=== PATIENT | male | born 1930 | race Caucasian/White ===

== ENCOUNTER 2016-10-07 14:26 | Inpatient (IN) | payer MEDICARE ==
[~2016-10-07] VITALS: Ht 182.9 cm; Wt 72.2 kg
[2016-10-07 17:13] VITALS: BP 179/93
[2016-10-07] MEDS ORDERED: METHYL SALICYLATE/MENTHOL TOPICAL OINTMENT 29GM TUBE. TP PRN (17:30)
[2016-10-07] MEDS ORDERED: MAG HYDROX/AL HYDROX/SIMETH 30 ML ORAL.SUSP PO PRN (17:30)
[2016-10-07] MEDS ORDERED: MAGNESIUM HYDROXIDE 2,400 MG/30 ML ORAL.SUSP. PO PRN (17:30)
[2016-10-07] MEDS ORDERED: LISI-334 PO (18:01)
[2016-10-07] MEDS ORDERED: AMLO10TA2 PO (18:01)
[2016-10-07] MEDS ORDERED: CLON0.1T12 PO (18:01)
[2016-10-07] MEDS ORDERED: cloNIDine HCL 0.1 MG TABLET PO PRN (18:15)
[2016-10-07] MEDS: LISINOPRIL 20 MG TABLET PO SCH (20:18)
[2016-10-08 05:19] LABS: HEMOGLOBIN A1C 5.6 % (4.8-5.6)
[2016-10-08 05:45] VITALS: BP 142/75
[2016-10-08 06:56] LABS: BASO # 0.1 x10^3/uL (0.0-0.2); BASO % 1 % (0-3); EOS # 1.2 x10^3/uL (0.0-0.7); EOS % 14 % (0-3); HEMATOCRIT 41.8 % (39.0-53.0); HEMOGLOBIN 14.2 g/dL (13.0-17.5); LYMPH # 1.2 x10^3/uL (1.0-4.8); LYMPH % 14 % (24-48); MEAN CORPUSCULAR HEMOGLOBIN 31 pg (25-35); MEAN CORPUSCULAR HGB CONC 34 g/dL (31-37); MEAN CORPUSCULAR VOLUME 90 fL (79-100); MONO # 0.9 x10^3/uL (0.0-1.1); MONO % 10 % (0-9); NEUT # 5.1 x10^3uL (1.8-7.7); NEUT % 60 % (31-73); PLATELET COUNT 204 x10^3/uL (140-400); RED BLOOD COUNT 4.63 x10^6/uL (4.30-5.70); RED CELL DISTRIBUTION WIDTH 14.2 % (11.5-14.5); WHITE BLOOD COUNT 8.5 x10^3/uL (4.0-11.0)
[2016-10-08 07:12] LABS: ALBUMIN 3.8 g/dL (3.4-5.0); ALBUMIN/GLOBULIN RATIO 1.2 (1.0-1.7); CALCIUM 8.9 mg/dL (8.5-10.1); CREATININE 1.3 mg/dL (0.7-1.3); GFR 52.6; POTASSIUM 3.3 mmol/L (3.5-5.1); TOTAL BILIRUBIN 2.5 mg/dL (0.2-1.0); TOTAL PROTEIN 6.9 g/dL (6.4-8.2)
[2016-10-08] MEDS: amLODIPine BESYLATE 10 MG TABLET PO SCH (08:10)
[2016-10-08] MEDS: POTASSIUM CHLORIDE 20 MEQ TABLET.ER. PO SCH (08:10)
[2016-10-08] MEDS: LISINOPRIL 20 MG TABLET PO SCH ×2 (08:11→20:00)
[2016-10-08] MEDS: CHOLECALCIFEROL (VITAMIN D3) 1,000 UNIT TABLET PO SCH (08:11)
[2016-10-08] MEDS ORDERED: PNEUMOC CONJ VACC 23-VALENT 0.5 ML VIAL. VAX IM ONE (09:00)
[2016-10-08 09:11] LABS: BACTERIA,URINE 0 /HPF (0-FEW); BILIRUBIN,URINE NEG (NEG); CLARITY,URINE CLEAR; COLOR,URINE YELLOW; GLUCOSE,URINE NEG (NEG); NITRITE,URINE NEG (NEG); RBC,URINE RARE /HPF (0-2); SQUAMOUS EPITHELIAL CELL,UR OCC /LPF; UROBILINOGEN,URINE 0.2 mg/dL (0.2 mg/dL); WBC,URINE RARE /HPF (0-4)
[2016-10-08 15:42] VITALS: BP 129/93
[2016-10-08] MEDS: DIVALPROEX 125 MG CAP.SPRINK PO SCH (20:00)
[2016-10-09 06:11] VITALS: BP 122/72
[2016-10-09] MEDS: LISINOPRIL 20 MG TABLET PO SCH ×2 (08:04→19:11)
[2016-10-09] MEDS: amLODIPine BESYLATE 10 MG TABLET PO SCH (08:04)
[2016-10-09] MEDS: CHOLECALCIFEROL (VITAMIN D3) 1,000 UNIT TABLET PO SCH (08:04)
[2016-10-09] MEDS: POTASSIUM CHLORIDE 20 MEQ TABLET.ER. PO SCH (08:05)
[2016-10-09] MEDS: DIVALPROEX 125 MG CAP.SPRINK PO SCH ×2 (08:06→19:10)
[2016-10-09 15:18] VITALS: BP 144/80
[2016-10-10 05:35] VITALS: BP 144/84
[2016-10-10 06:18] LABS: ALBUMIN 3.3 g/dL (3.4-5.0); ALBUMIN/GLOBULIN RATIO 1.2 (1.0-1.7); CALCIUM 8.3 mg/dL (8.5-10.1); CREATININE 1.2 mg/dL (0.7-1.3); GFR 57.7; POTASSIUM 3.5 mmol/L (3.5-5.1); TOTAL BILIRUBIN 1.9 mg/dL (0.2-1.0); TOTAL PROTEIN 6.1 g/dL (6.4-8.2)
[2016-10-10] MEDS: POTASSIUM CHLORIDE 20 MEQ TABLET.ER. PO SCH (08:03)
[2016-10-10] MEDS: CHOLECALCIFEROL (VITAMIN D3) 1,000 UNIT TABLET PO SCH (08:03)
[2016-10-10] MEDS: DIVALPROEX 125 MG CAP.SPRINK PO SCH ×2 (08:03→19:28)
[2016-10-10] MEDS: LISINOPRIL 20 MG TABLET PO SCH ×2 (08:03→19:29)
[2016-10-10] MEDS: amLODIPine BESYLATE 10 MG TABLET PO SCH (08:04)
[2016-10-10 15:57] VITALS: BP 135/82
[2016-10-11 05:54] VITALS: BP 154/93
[2016-10-11] MEDS: LISINOPRIL 20 MG TABLET PO SCH ×2 (08:04→19:40)
[2016-10-11] MEDS: POTASSIUM CHLORIDE 20 MEQ TABLET.ER. PO SCH (08:05)
[2016-10-11] MEDS: DIVALPROEX 125 MG CAP.SPRINK PO SCH ×2 (08:05→19:40)
[2016-10-11] MEDS: CHOLECALCIFEROL (VITAMIN D3) 1,000 UNIT TABLET PO SCH (08:05)
[2016-10-11] MEDS: amLODIPine BESYLATE 10 MG TABLET PO SCH (08:05)
--- NOTE | 2016-10-11 12:59 | PDOC ---
Exam Isaiah Demential Exam: Isaiah Note: Please also refer to the separate dictated note~for this date of service dictated separately.~Patient seen individually. Discussed the patient with Nursing staff reviewed the chart.~Reviewed interim history and current functioning. Reviewed vital signs,~Labs/ Radiology~and current medications noted below. Continue current treatment with the changes noted in the dictated addendum note Assessment: Vital Signs: Vital Signs Date Time Temp Pulse Resp B/P (MAP) Pulse Ox O2 Delivery O2 Flow Rate FiO2 10/11/16 08:05 59 154/93 10/11/16 05:54 98.1 20 98 10/10/16 05:35 Room Air I&O Intake and Output 10/11/16 07:00 Intake Total 1320 ml Balance 1320 ml Intake Oral 1320 ml Current Medications: Meds: Current Medications Acetaminophen (Tylenol) 650 mg PRN Q6HRS PRN PO PAIN / TEMP; Start 10/07/16 at 17:30 Multi-Ingredient Ointment (Analgesic [place]) 1 kika PRN QID PRN TP MUSCLE PAIN; Start 10/07/16 at 17:30 Al Hydroxide/Mg Hydroxide (Mylanta Plus Xs) 15 ml PRN AFTMEALHC PRN PO DYSPEPSIA; Start 10/07/16 at 17:30 Magnesium Hydroxide (Milk Of Magnesia) 2,400 mg PRN QHS PRN PO CONSTIPATION; Start 10/07/16 at 17:30 Amlodipine Besylate (Norvasc) 10 mg DAILY PO Last administered on 10/11/16 08: 05; Start 10/08/16 at 09:00 Clonidine HCl (Catapres) 0.1 mg PRN Q6HRS PRN PO HYPERTENSION, SEE COMMENTS; Start 10/07/16 at 18:15 Lisinopril (Prinivil) 20 mg BID PO Last administered on 10/11/16 08:04; Start 10/07/16 at 21:00 Pneumococcal Polyvalent Vaccine (Pneumovax 23) 0.5 ml ONCE ONCE VAX IM ; Start 10/08/16 at 09:00; Stop 10/08/16 at 09:01; Status DC Olanzapine (ZyPREXA ZYDIS) 2.5 mg PRN Q4HRS PRN PO ANXIETY / AGITATION Last administered on 10/07/16 23:09; Start 10/07/16 at 23:15 Vitamin D (Vitamin D3) 2,000 unit DAILY PO Last administered on 10/11/16 08:05 ; Start 10/08/16 at 09:00 Potassium Chloride (Klor-Con) 20 meq DAILYWBKFT PO Last administered on 08:05; Start 10/08/16 at 08:00 Divalproex Sodium (Depakote Sprinkles) 125 mg DAILY PO Last administered on 10/11 08:05; Start 10/09/16 at 09:00 Divalproex Sodium (Depakote Sprinkles) 250 mg HS PO Last administered on 19:28; Start 10/08/16 at 21:00 Sertraline HCl (Zoloft) 25 mg DAILY PO ; Start 10/12/16 at 09:00 Trazodone HCl (Desyrel) 50 mg PRN QHS PRN PO INSOMNIA, MAY REPEAT X1; Start 10/11/16 at 10:30 Active Scripts Active Reported Catapres (Clonidine Hcl) 0.1 Mg Tablet 1 Tab PO PRN Q6HRS PRN Amlodipine Besylate 10 Mg Tablet 10 Mg PO DAILY Lisinopril 20 Mg Tablet 1 Tab PO BID Diagnosis: Problems: (1) Impulse control disorder (2) Dementia, vascular, with depression (3) Dementia, vascular, with delusions (4) Major depressive disorder, recurrent episode (5) Anxiety disorder KOTA MUNOZ MD Oct 11, 2016 12:59
[2016-10-11 16:19] VITALS: BP 146/80
[2016-10-11] MEDS: traZODone 50 MG TABLET. PO PRN (19:43)
[2016-10-12 06:16] VITALS: BP 141/74
[2016-10-12] MEDS: amLODIPine BESYLATE 10 MG TABLET PO SCH (07:13)
[2016-10-12] MEDS: POTASSIUM CHLORIDE 20 MEQ TABLET.ER. PO SCH (07:14)
[2016-10-12] MEDS: DIVALPROEX 125 MG CAP.SPRINK PO SCH ×2 (07:14→19:43)
[2016-10-12] MEDS: LISINOPRIL 20 MG TABLET PO SCH ×2 (07:17→19:43)
[2016-10-12] MEDS: CHOLECALCIFEROL (VITAMIN D3) 1,000 UNIT TABLET PO SCH (07:18)
[2016-10-12] MEDS: SERTRALINE 25 MG TABLET. PO SCH (07:43)
[2016-10-12 07:57] LABS: VAL ACID 47 mcg/mL (50-100)
[2016-10-12 15:54] VITALS: BP 117/76
[2016-10-12] MEDS: traZODone 50 MG TABLET. PO PRN (19:44)
--- NOTE | 2016-10-12 21:02 | PDOC ---
Exam Isaiah Demential Exam: Isaiah Note: Please also refer to the separate dictated note~for this date of service dictated separately.~Patient seen individually. Discussed the patient with Nursing staff reviewed the chart.~Reviewed interim history and current functioning. Reviewed vital signs,~Labs/ Radiology~and current medications noted below. Continue current treatment with the changes noted in the dictated addendum note Assessment: Vital Signs: Vital Signs Date Time Temp Pulse Resp B/P (MAP) Pulse Ox O2 Delivery O2 Flow Rate FiO2 10/12/16 19:43 64 117/76 10/12/16 15:54 98.4 16 98 10/10/16 05:35 Room Air I&O Intake and Output 10/12/16 07:00 Intake Total 960 ml Balance 960 ml Intake Oral 960 ml Labs: Laboratory Tests Test 10/12/16 07:19 Valproic Acid Level 47 mcg/mL (50-100) L Valproic Acid Last Dose Date 10/11/16 Valproic Acid Last Dose Time 2100 Current Medications: Meds: Current Medications Acetaminophen (Tylenol) 650 mg PRN Q6HRS PRN PO PAIN / TEMP; Start 10/07/16 at 17:30 Multi-Ingredient Ointment (Analgesic [place]) 1 kika PRN QID PRN TP MUSCLE PAIN; Start 10/07/16 at 17:30 Al Hydroxide/Mg Hydroxide (Mylanta Plus Xs) 15 ml PRN AFTMEALHC PRN PO DYSPEPSIA; Start 10/07/16 at 17:30 Magnesium Hydroxide (Milk Of Magnesia) 2,400 mg PRN QHS PRN PO CONSTIPATION; Start 10/07/16 at 17:30 Amlodipine Besylate (Norvasc) 10 mg DAILY PO Last administered on 10/12/16 07: 13; Start 10/08/16 at 09:00 Clonidine HCl (Catapres) 0.1 mg PRN Q6HRS PRN PO HYPERTENSION, SEE COMMENTS; Start 10/07/16 at 18:15 Lisinopril (Prinivil) 20 mg BID PO Last administered on 10/12/16 19:43; Start 10/07/16 at 21:00 Pneumococcal Polyvalent Vaccine (Pneumovax 23) 0.5 ml ONCE ONCE VAX IM ; Start 10/08/16 at 09:00; Stop 10/08/16 at 09:01; Status DC Olanzapine (ZyPREXA ZYDIS) 2.5 mg PRN Q4HRS PRN PO ANXIETY / AGITATION Last administered on 10/12/16 12:17; Start 10/07/16 at 23:15 Vitamin D (Vitamin D3) 2,000 unit DAILY PO Last administered on 10/12/16 07:18 ; Start 10/08/16 at 09:00 Potassium Chloride (Klor-Con) 20 meq DAILYWBKFT PO Last administered on 07:14; Start 10/08/16 at 08:00 Divalproex Sodium (Depakote Sprinkles) 125 mg DAILY PO Last administered on 10/12 07:14; Start 10/09/16 at 09:00 Divalproex Sodium (Depakote Sprinkles) 250 mg HS PO Last administered on 19:43; Start 10/08/16 at 21:00 Sertraline HCl (Zoloft) 25 mg DAILY PO Last administered on 10/12/16 07:43; Start 10/12/16 at 09:00 Trazodone HCl (Desyrel) 50 mg PRN QHS PRN PO INSOMNIA, MAY REPEAT X1 Last administered on 10/12/16 19:44; Start 10/11/16 at 10:30 Active Scripts Active Reported Catapres (Clonidine Hcl) 0.1 Mg Tablet 1 Tab PO PRN Q6HRS PRN Amlodipine Besylate 10 Mg Tablet 10 Mg PO DAILY Lisinopril 20 Mg Tablet 1 Tab PO BID Diagnosis: Problems: (1) Anxiety disorder (2) Impulse control disorder (3) Major depressive disorder, recurrent episode (4) Dementia, vascular, with depression (5) Dementia, vascular, with delusions KOTA MUNOZ MD Oct 12, 2016 21:02
[2016-10-13 06:40] VITALS: BP 129/74
[2016-10-13] MEDS: CHOLECALCIFEROL (VITAMIN D3) 1,000 UNIT TABLET PO SCH (09:29)
[2016-10-13] MEDS: SERTRALINE 25 MG TABLET. PO SCH (09:29)
[2016-10-13] MEDS: DIVALPROEX 125 MG CAP.SPRINK PO SCH ×2 (09:29→19:12)
[2016-10-13] MEDS: amLODIPine BESYLATE 10 MG TABLET PO SCH (09:30)
[2016-10-13] MEDS: POTASSIUM CHLORIDE 20 MEQ TABLET.ER. PO SCH (09:30)
[2016-10-13] MEDS: LISINOPRIL 20 MG TABLET PO SCH ×2 (09:30→19:12)
[2016-10-13 15:48] VITALS: BP 117/69
--- NOTE | 2016-10-13 20:11 | PDOC ---
Exam Isaiah Demential Exam: Isaiah Note: Please also refer to the separate dictated note~for this date of service dictated separately.~Patient seen individually. Discussed the patient with Nursing staff reviewed the chart.~Reviewed interim history and current functioning. Reviewed vital signs,~Labs/ Radiology~and current medications noted below. Continue current treatment with the changes noted in the dictated addendum note Assessment: Vital Signs: Vital Signs Date Time Temp Pulse Resp B/P (MAP) Pulse Ox O2 Delivery O2 Flow Rate FiO2 10/13/16 19:12 55 117/69 10/13/16 15:48 98.0 16 97 Room Air I&O Intake and Output 10/13/16 07:00 Intake Total 1085 ml Balance 1085 ml Intake Oral 1085 ml Current Medications: Meds: Current Medications Acetaminophen (Tylenol) 650 mg PRN Q6HRS PRN PO PAIN / TEMP; Start 10/07/16 at 17:30 Multi-Ingredient Ointment (Analgesic [place]) 1 kika PRN QID PRN TP MUSCLE PAIN; Start 10/07/16 at 17:30 Al Hydroxide/Mg Hydroxide (Mylanta Plus Xs) 15 ml PRN AFTMEALHC PRN PO DYSPEPSIA; Start 10/07/16 at 17:30 Magnesium Hydroxide (Milk Of Magnesia) 2,400 mg PRN QHS PRN PO CONSTIPATION; Start 10/07/16 at 17:30 Amlodipine Besylate (Norvasc) 10 mg DAILY PO Last administered on 10/13/16 09: 30; Start 10/08/16 at 09:00 Clonidine HCl (Catapres) 0.1 mg PRN Q6HRS PRN PO HYPERTENSION, SEE COMMENTS; Start 10/07/16 at 18:15 Lisinopril (Prinivil) 20 mg BID PO Last administered on 10/13/16 19:12; Start 10/07/16 at 21:00 Pneumococcal Polyvalent Vaccine (Pneumovax 23) 0.5 ml ONCE ONCE VAX IM ; Start 10/08/16 at 09:00; Stop 10/08/16 at 09:01; Status DC Olanzapine (ZyPREXA ZYDIS) 2.5 mg PRN Q4HRS PRN PO ANXIETY / AGITATION Last administered on 10/12/16 12:17; Start 10/07/16 at 23:15 Vitamin D (Vitamin D3) 2,000 unit DAILY PO Last administered on 10/13/16 09:29 ; Start 10/08/16 at 09:00 Potassium Chloride (Klor-Con) 20 meq DAILYWBKFT PO Last administered on 09:30; Start 10/08/16 at 08:00 Divalproex Sodium (Depakote Sprinkles) 125 mg DAILY PO Last administered on 10/13 09:29; Start 10/09/16 at 09:00 Divalproex Sodium (Depakote Sprinkles) 250 mg HS PO Last administered on 19:12; Start 10/08/16 at 21:00 Sertraline HCl (Zoloft) 25 mg DAILY PO Last administered on 10/13/16 09:29; Start 10/12/16 at 09:00 Trazodone HCl (Desyrel) 50 mg PRN QHS PRN PO INSOMNIA, MAY REPEAT X1 Last administered on 10/12/16 19:44; Start 10/11/16 at 10:30 Active Scripts Active Reported Catapres (Clonidine Hcl) 0.1 Mg Tablet 1 Tab PO PRN Q6HRS PRN Amlodipine Besylate 10 Mg Tablet 10 Mg PO DAILY Lisinopril 20 Mg Tablet 1 Tab PO BID Diagnosis: Problems: (1) Anxiety disorder (2) Impulse control disorder (3) Major depressive disorder, recurrent episode (4) Dementia, vascular, with depression (5) Dementia, vascular, with delusions KOTA MUNOZ MD Oct 13, 2016 20:11
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
[2016-10-14] MEDS: ACETAMINOPHEN 325 MG TABLET PO PRN ×2 (01:39→08:39)
[2016-10-14 05:59] VITALS: BP 155/83
[2016-10-14] MEDS: DIVALPROEX 125 MG CAP.SPRINK PO SCH ×2 (08:38→19:48)
[2016-10-14] MEDS: LISINOPRIL 20 MG TABLET PO SCH ×2 (08:38→19:48)
[2016-10-14] MEDS: CHOLECALCIFEROL (VITAMIN D3) 1,000 UNIT TABLET PO SCH (08:38)
[2016-10-14] MEDS: amLODIPine BESYLATE 10 MG TABLET PO SCH (08:38)
[2016-10-14] MEDS: POTASSIUM CHLORIDE 20 MEQ TABLET.ER. PO SCH (08:38)
[2016-10-14] MEDS: SERTRALINE 25 MG TABLET. PO SCH (08:38)
[2016-10-14] MEDS ORDERED: KETOROLAC 30 MG/ML VIAL. IM ONE (11:40)
[2016-10-14 11:54] LABS: BASO # 0.1 x10^3/uL (0.0-0.2); BASO % 1 % (0-3); EOS # 0.9 x10^3/uL (0.0-0.7); EOS % 7 % (0-3); HEMOGLOBIN 13.2 g/dL (13.0-17.5); LYMPH # 0.4 x10^3/uL (1.0-4.8); LYMPH % 3 % (24-48); MEAN CORPUSCULAR HEMOGLOBIN 30 pg (25-35); MEAN CORPUSCULAR HGB CONC 33 g/dL (31-37); MEAN CORPUSCULAR VOLUME 92 fL (79-100); MONO # 1.1 x10^3/uL (0.0-1.1); MONO % 8 % (0-9); NEUT # 11.1 x10^3uL (1.8-7.7); NEUT % 81 % (31-73); PLATELET COUNT 190 x10^3/uL (140-400); RED BLOOD COUNT 4.37 x10^6/uL (4.30-5.70); RED CELL DISTRIBUTION WIDTH 14.1 % (11.5-14.5); WHITE BLOOD COUNT 13.6 x10^3/uL (4.0-11.0)
[2016-10-14 12:00] LABS: ALBUMIN 3.4 g/dL (3.4-5.0); ALBUMIN/GLOBULIN RATIO 1.1 (1.0-1.7); C REACTIVE PROTEIN 20.7 mg/L (0-3.3); CALCIUM 8.5 mg/dL (8.5-10.1); CREATININE 1.2 mg/dL (0.7-1.3); GFR 57.7; POTASSIUM 3.9 mmol/L (3.5-5.1); TOTAL BILIRUBIN 1.2 mg/dL (0.2-1.0); TOTAL PROTEIN 6.6 g/dL (6.4-8.2); URIC ACID 4.7 mg/dL (3.5-7.2)
--- NOTE | 2016-10-14 12:42 | RAD ---
Indication pain with swelling. AP oblique and lateral views of the right knee were obtained. No acute bony finding is seen. Significant degenerative changes are not apparent particularly given the patient's age. Vascular calcification is noted as well as a small joint effusion.
[2016-10-14 13:26] LABS: SEDIMENTATION RATE 10 (0-15)
[2016-10-14 16:20] VITALS: BP 146/74
--- NOTE | 2016-10-14 16:50 | PDOC ---
PROGRESS NOTES Diagnosis DIAGNOSIS pain and swelling in his right knee joint He apparently fell in the ER at [facility] he sustained laceration on his right brow and superficial bruises on his right knee Problem Acute right knee monoarthritis Possible right knee hemarthrosis Assessment Right knee pain with marked effusion Mild leukocytosis ESR is normal Elevated CRP X ray of the right knee showed preserved joint space and no chondrocalcinosis uric acid was normal PLAN Arrange for CT Scan of the right knee Subjective Vital signs stable Right knee swollen painful with prominent effusion likely hemarthosis Objective Vital Signs Date Time Temp Pulse Resp B/P (MAP) Pulse Ox O2 Delivery O2 Flow Rate FiO2 10/14/16 16:20 98.4 61 18 146/74 (98) 99 10/13/16 15:48 Room Air Intake and Output 10/14/16 07:00 Intake Total 480 ml Balance 480 ml Intake Oral 480 ml # Bowel Movements 1 Review of Relevant I have reviewed the following items jacki (where applicable) has been applied. Labs Laboratory Tests Test 10/14/16 11:40 White Blood Count 13.6 x10^3/uL (4.0-11.0) Red Blood Count 4.37 x10^6/uL (4.30-5.70) Hemoglobin 13.2 g/dL (13.0-17.5) Hematocrit 40.0 % (39.0-53.0) Mean Corpuscular Volume 92 fL (79-100) Mean Corpuscular Hemoglobin 30 pg (25-35) Mean Corpuscular Hemoglobin Concent 33 g/dL (31-37) Red Cell Distribution Width 14.1 % (11.5-14.5) Platelet Count 190 x10^3/uL (140-400) Neutrophils (%) (Auto) 81 % (31-73) Lymphocytes (%) (Auto) 3 % (24-48) Monocytes (%) (Auto) 8 % (0-9) Eosinophils (%) (Auto) 7 % (0-3) Basophils (%) (Auto) 1 % (0-3) Neutrophils # (Auto) 11.1 x10^3uL (1.8-7.7) Lymphocytes # (Auto) 0.4 x10^3/uL (1.0-4.8) Monocytes # (Auto) 1.1 x10^3/uL (0.0-1.1) Eosinophils # (Auto) 0.9 x10^3/uL (0.0-0.7) Basophils # (Auto) 0.1 x10^3/uL (0.0-0.2) Erythrocyte Sedimentation Rate 10 (0-15) Sodium Level 141 mmol/L (136-145) Potassium Level 3.9 mmol/L (3.5-5.1) Chloride Level 104 mmol/L (98-107) Carbon Dioxide Level 32 mmol/L (21-32) Anion Gap 5 (6-14) Blood Urea Nitrogen 19 mg/dL (8-26) Creatinine 1.2 mg/dL (0.7-1.3) Estimated GFR (Cockcroft-Gault) 57.7 BUN/Creatinine Ratio 16 (6-20) Glucose Level 114 mg/dL (70-99) Uric Acid 4.7 mg/dL (3.5-7.2) Calcium Level 8.5 mg/dL (8.5-10.1) Total Bilirubin 1.2 mg/dL (0.2-1.0) Aspartate Amino Transf (AST/SGOT) 20 U/L (15-37) Alanine Aminotransferase (ALT/SGPT) 28 U/L (16-63) Alkaline Phosphatase 158 U/L (46-116) C-Reactive Protein 20.7 mg/L (0-3.3) Total Protein 6.6 g/dL (6.4-8.2) Albumin 3.4 g/dL (3.4-5.0) Albumin/Globulin Ratio 1.1 (1.0-1.7) Medications Current Medications Acetaminophen (Tylenol) 650 mg PRN Q6HRS PRN PO PAIN / TEMP Last administered on 10/14/16t 08:39; Start 10/07/16 at 17:30 Multi-Ingredient Ointment (Analgesic [place]) 1 kika PRN QID PRN TP MUSCLE PAIN; Start 10/07/16 at 17:30 Al Hydroxide/Mg Hydroxide (Mylanta Plus Xs) 15 ml PRN AFTMEALHC PRN PO DYSPEPSIA; Start 10/07/16 at 17:30 Magnesium Hydroxide (Milk Of Magnesia) 2,400 mg PRN QHS PRN PO CONSTIPATION; Start 10/07/16 at 17:30 Amlodipine Besylate (Norvasc) 10 mg DAILY PO Last administered on 10/14/16 08: 38; Start 10/08/16 at 09:00 Clonidine HCl (Catapres) 0.1 mg PRN Q6HRS PRN PO HYPERTENSION, SEE COMMENTS; Start 10/07/16 at 18:15 Lisinopril (Prinivil) 20 mg BID PO Last administered on 10/14/16 08:38; Start 10/07/16 at 21:00 Pneumococcal Polyvalent Vaccine (Pneumovax 23) 0.5 ml ONCE ONCE VAX IM ; Start 10/08/16 at 09:00; Stop 10/08/16 at 09:01; Status DC Olanzapine (ZyPREXA ZYDIS) 2.5 mg PRN Q4HRS PRN PO ANXIETY / AGITATION Last administered on 10/12/16 12:17; Start 10/07/16 at 23:15 Vitamin D (Vitamin D3) 2,000 unit DAILY PO Last administered on 10/14/16 08:38 ; Start 10/08/16 at 09:00 Potassium Chloride (Klor-Con) 20 meq DAILYWBKFT PO Last administered on 08:38; Start 10/08/16 at 08:00 Divalproex Sodium (Depakote Sprinkles) 125 mg DAILY PO Last administered on 10/14 08:38; Start 10/09/16 at 09:00 Divalproex Sodium (Depakote Sprinkles) 250 mg HS PO Last administered on 19:12; Start 10/08/16 at 21:00 Sertraline HCl (Zoloft) 25 mg DAILY PO Last administered on 10/14/16 08:38; Start 10/12/16 at 09:00 Trazodone HCl (Desyrel) 50 mg PRN QHS PRN PO INSOMNIA, MAY REPEAT X1 Last administered on 10/12/16 19:44; Start 10/11/16 at 10:30 Ketorolac Tromethamine (Toradol) 30 mg 1X ONCE IM Last administered on 11:37; Start 10/14/16 at 11:40; Stop 10/14/16 at 11:41; Status DC Active Scripts Active Reported Catapres (Clonidine Hcl) 0.1 Mg Tablet 1 Tab PO PRN Q6HRS PRN Amlodipine Besylate 10 Mg Tablet 10 Mg PO DAILY Lisinopril 20 Mg Tablet 1 Tab PO BID Vitals/I & O Vital Sign - Last 24 Hours 10/13/16 10/14/16 10/14/16 10/14/16 19:12 05:59 08:38 08:38 Temp 97.9 Pulse 55 60 60 60 Resp 18 B/P (MAP) 117/69 155/83 (107) 155/83 155/83 Pulse Ox 98 10/14/16 16:20 Temp 98.4 Pulse 61 Resp 18 B/P (MAP) 146/74 (98) Pulse Ox 99 Intake and Output 10/13/16 10/13/16 10/14/16 15:00 23:00 07:00 Intake Total 240 ml 240 ml Balance 240 ml 240 ml TAMI SALMERON MD Oct 14, 2016 16:50
[2016-10-14] MEDS: NAPROXEN 250 MG TABLET PO PRN (18:05)
[2016-10-14] MEDS: traZODone 50 MG TABLET. PO PRN (19:47)
--- NOTE | 2016-10-14 19:54 | PDOC ---
Exam Isaiah Demential Exam: Isaiah Note: Please also refer to the separate dictated note~for this date of service dictated separately.~Patient seen individually. Discussed the patient with Nursing staff reviewed the chart.~Reviewed interim history and current functioning. Reviewed vital signs,~Labs/ Radiology~and current medications noted below. Continue current treatment with the changes noted in the dictated addendum note DATE OF SERVICE: 10/12/2016. PSYCHIATRIC PROGRESS NOTE This note is a late entry for Date of Service 10/12/2016 and covers elements not covered in my initial note of 10/12/2016. The patient remains confused, forgetful, irritable, at lunchtime received Zyprexa, does redirect. No CV, , pulmonary, eye, ENT systems symptoms, on review. Reliability poor. MENTAL STATUS EXAM: Oriented to himself. Insight and judgment, recent and remote memory, attention and concentration, fund of knowledge poor consistent with his diagnoses mentioned in my initial note. LABS: Reviewed. PLAN: Continue current psychotropics including Depakote along with Zyprexa p.r.n., Zoloft, and trazodone. Adjust further as clinically indicated. Assessment: Vital Signs: Vital Signs Date Time Temp Pulse Resp B/P (MAP) Pulse Ox O2 Delivery O2 Flow Rate FiO2 10/14/16 19:48 61 146/74 10/14/16 16:20 98.4 18 99 10/13/16 15:48 Room Air I&O Intake and Output 10/14/16 07:00 Intake Total 480 ml Balance 480 ml Intake Oral 480 ml # Bowel Movements 1 Labs: Laboratory Tests Test 10/14/16 11:40 White Blood Count 13.6 x10^3/uL (4.0-11.0) #H Red Blood Count 4.37 x10^6/uL (4.30-5.70) Hemoglobin 13.2 g/dL (13.0-17.5) Hematocrit 40.0 % (39.0-53.0) Mean Corpuscular Volume 92 fL (79-100) Mean Corpuscular Hemoglobin 30 pg (25-35) Mean Corpuscular Hemoglobin Concent 33 g/dL (31-37) Red Cell Distribution Width 14.1 % (11.5-14.5) Platelet Count 190 x10^3/uL (140-400) Neutrophils (%) (Auto) 81 % (31-73) H Lymphocytes (%) (Auto) 3 % (24-48) L Monocytes (%) (Auto) 8 % (0-9) Eosinophils (%) (Auto) 7 % (0-3) H Basophils (%) (Auto) 1 % (0-3) Neutrophils # (Auto) 11.1 x10^3uL (1.8-7.7) H Lymphocytes # (Auto) 0.4 x10^3/uL (1.0-4.8) L Monocytes # (Auto) 1.1 x10^3/uL (0.0-1.1) Eosinophils # (Auto) 0.9 x10^3/uL (0.0-0.7) H Basophils # (Auto) 0.1 x10^3/uL (0.0-0.2) Erythrocyte Sedimentation Rate 10 (0-15) Sodium Level 141 mmol/L (136-145) Potassium Level 3.9 mmol/L (3.5-5.1) Chloride Level 104 mmol/L (98-107) Carbon Dioxide Level 32 mmol/L (21-32) Anion Gap 5 (6-14) L Blood Urea Nitrogen 19 mg/dL (8-26) Creatinine 1.2 mg/dL (0.7-1.3) Estimated GFR (Cockcroft-Gault) 57.7 BUN/Creatinine Ratio 16 (6-20) Glucose Level 114 mg/dL (70-99) H Uric Acid 4.7 mg/dL (3.5-7.2) Calcium Level 8.5 mg/dL (8.5-10.1) Total Bilirubin 1.2 mg/dL (0.2-1.0) H Aspartate Amino Transferase (AST) 20 U/L (15-37) Alanine Aminotransferase (ALT) 28 U/L (16-63) Alkaline Phosphatase 158 U/L (46-116) H C-Reactive Protein 20.7 mg/L (0-3.3) H Total Protein 6.6 g/dL (6.4-8.2) Albumin 3.4 g/dL (3.4-5.0) Albumin/Globulin Ratio 1.1 (1.0-1.7) Current Medications: Meds: Current Medications Acetaminophen (Tylenol) 650 mg PRN Q6HRS PRN PO PAIN / TEMP Last administered on 10/14/16 08:39; Start 10/07/16 at 17:30 Multi-Ingredient Ointment (Analgesic [place]) 1 kika PRN QID PRN TP MUSCLE PAIN; Start 10/07/16 at 17:30 Al Hydroxide/Mg Hydroxide (Mylanta Plus Xs) 15 ml PRN AFTMEALHC PRN PO DYSPEPSIA; Start 10/07/16 at 17:30 Magnesium Hydroxide (Milk Of Magnesia) 2,400 mg PRN QHS PRN PO CONSTIPATION; Start 10/07/16 at 17:30 Amlodipine Besylate (Norvasc) 10 mg DAILY PO Last administered on 10/14/16 08: 38; Start 10/08/16 at 09:00 Clonidine HCl (Catapres) 0.1 mg PRN Q6HRS PRN PO HYPERTENSION, SEE COMMENTS; Start 10/07/16 at 18:15 Lisinopril (Prinivil) 20 mg BID PO Last administered on 10/14/16 19:48; Start 10/07/16 at 21:00 Pneumococcal Polyvalent Vaccine (Pneumovax 23) 0.5 ml ONCE ONCE VAX IM ; Start 10/08/16 at 09:00; Stop 10/08/16 at 09:01; Status DC Olanzapine (ZyPREXA ZYDIS) 2.5 mg PRN Q4HRS PRN PO ANXIETY / AGITATION Last administered on 10/12/16 12:17; Start 10/07/16 at 23:15 Vitamin D (Vitamin D3) 2,000 unit DAILY PO Last administered on 10/14/16 08:38 ; Start 10/08/16 at 09:00 Potassium Chloride (Klor-Con) 20 meq DAILYWBKFT PO Last administered on 08:38; Start 10/08/16 at 08:00 Divalproex Sodium (Depakote Sprinkles) 125 mg DAILY PO Last administered on 10/14 08:38; Start 10/09/16 at 09:00 Divalproex Sodium (Depakote Sprinkles) 250 mg HS PO Last administered on 19:48; Start 10/08/16 at 21:00 Sertraline HCl (Zoloft) 25 mg DAILY PO Last administered on 10/14/16 08:38; Start 10/12/16 at 09:00; Stop 10/14/16 at 18:17; Status DC Trazodone HCl (Desyrel) 50 mg PRN QHS PRN PO INSOMNIA, MAY REPEAT X1 Last administered on 10/14/16 19:47; Start 10/11/16 at 10:30 Ketorolac Tromethamine (Toradol) 30 mg 1X ONCE IM Last administered on 11:37; Start 10/14/16 at 11:40; Stop 10/14/16 at 11:41; Status DC Naproxen (Naprosyn) 250 mg TIDAFTMEAL PRN PO PAIN Last administered on 18:05; Start 10/14/16 at 16:45 Sertraline HCl (Zoloft) 50 mg DAILY PO ; Start 10/15/16 at 09:00 Active Scripts Active Reported Catapres (Clonidine Hcl) 0.1 Mg Tablet 1 Tab PO PRN Q6HRS PRN Amlodipine Besylate 10 Mg Tablet 10 Mg PO DAILY Lisinopril 20 Mg Tablet 1 Tab PO BID KOTA MUNOZ MD Oct 14, 2016 19:54
--- NOTE | 2016-10-14 20:40 | PDOC ---
Exam Isaiah Demential Exam: Isaiah Note: Please also refer to the separate dictated note~for this date of service dictated separately.~Patient seen individually. Discussed the patient with Nursing staff reviewed the chart.~Reviewed interim history and current functioning. Reviewed vital signs,~Labs/ Radiology~and current medications noted below. Continue current treatment with the changes noted in the dictated addendum note Assessment: Vital Signs: Vital Signs Date Time Temp Pulse Resp B/P (MAP) Pulse Ox O2 Delivery O2 Flow Rate FiO2 10/14/16 19:48 61 146/74 10/14/16 16:20 98.4 18 99 10/13/16 15:48 Room Air I&O Intake and Output 10/14/16 07:00 Intake Total 480 ml Balance 480 ml Intake Oral 480 ml # Bowel Movements 1 Labs: Laboratory Tests Test 10/14/16 11:40 White Blood Count 13.6 x10^3/uL (4.0-11.0) #H Red Blood Count 4.37 x10^6/uL (4.30-5.70) Hemoglobin 13.2 g/dL (13.0-17.5) Hematocrit 40.0 % (39.0-53.0) Mean Corpuscular Volume 92 fL (79-100) Mean Corpuscular Hemoglobin 30 pg (25-35) Mean Corpuscular Hemoglobin Concent 33 g/dL (31-37) Red Cell Distribution Width 14.1 % (11.5-14.5) Platelet Count 190 x10^3/uL (140-400) Neutrophils (%) (Auto) 81 % (31-73) H Lymphocytes (%) (Auto) 3 % (24-48) L Monocytes (%) (Auto) 8 % (0-9) Eosinophils (%) (Auto) 7 % (0-3) H Basophils (%) (Auto) 1 % (0-3) Neutrophils # (Auto) 11.1 x10^3uL (1.8-7.7) H Lymphocytes # (Auto) 0.4 x10^3/uL (1.0-4.8) L Monocytes # (Auto) 1.1 x10^3/uL (0.0-1.1) Eosinophils # (Auto) 0.9 x10^3/uL (0.0-0.7) H Basophils # (Auto) 0.1 x10^3/uL (0.0-0.2) Erythrocyte Sedimentation Rate 10 (0-15) Sodium Level 141 mmol/L (136-145) Potassium Level 3.9 mmol/L (3.5-5.1) Chloride Level 104 mmol/L (98-107) Carbon Dioxide Level 32 mmol/L (21-32) Anion Gap 5 (6-14) L Blood Urea Nitrogen 19 mg/dL (8-26) Creatinine 1.2 mg/dL (0.7-1.3) Estimated GFR (Cockcroft-Gault) 57.7 BUN/Creatinine Ratio 16 (6-20) Glucose Level 114 mg/dL (70-99) H Uric Acid 4.7 mg/dL (3.5-7.2) Calcium Level 8.5 mg/dL (8.5-10.1) Total Bilirubin 1.2 mg/dL (0.2-1.0) H Aspartate Amino Transferase (AST) 20 U/L (15-37) Alanine Aminotransferase (ALT) 28 U/L (16-63) Alkaline Phosphatase 158 U/L (46-116) H C-Reactive Protein 20.7 mg/L (0-3.3) H Total Protein 6.6 g/dL (6.4-8.2) Albumin 3.4 g/dL (3.4-5.0) Albumin/Globulin Ratio 1.1 (1.0-1.7) Current Medications: Meds: Current Medications Acetaminophen (Tylenol) 650 mg PRN Q6HRS PRN PO PAIN / TEMP Last administered on 10/14/16 08:39; Start 10/07/16 at 17:30 Multi-Ingredient Ointment (Analgesic [place]) 1 kika PRN QID PRN TP MUSCLE PAIN; Start 10/07/16 at 17:30 Al Hydroxide/Mg Hydroxide (Mylanta Plus Xs) 15 ml PRN AFTMEALHC PRN PO DYSPEPSIA; Start 10/07/16 at 17:30 Magnesium Hydroxide (Milk Of Magnesia) 2,400 mg PRN QHS PRN PO CONSTIPATION; Start 10/07/16 at 17:30 Amlodipine Besylate (Norvasc) 10 mg DAILY PO Last administered on 10/14/16 08: 38; Start 10/08/16 at 09:00 Clonidine HCl (Catapres) 0.1 mg PRN Q6HRS PRN PO HYPERTENSION, SEE COMMENTS; Start 10/07/16 at 18:15 Lisinopril (Prinivil) 20 mg BID PO Last administered on 10/14/16 19:48; Start 10/07/16 at 21:00 Pneumococcal Polyvalent Vaccine (Pneumovax 23) 0.5 ml ONCE ONCE VAX IM ; Start 10/08/16 at 09:00; Stop 10/08/16 at 09:01; Status DC Olanzapine (ZyPREXA ZYDIS) 2.5 mg PRN Q4HRS PRN PO ANXIETY / AGITATION Last administered on 10/12/16 12:17; Start 10/07/16 at 23:15 Vitamin D (Vitamin D3) 2,000 unit DAILY PO Last administered on 10/14/16 08:38 ; Start 10/08/16 at 09:00 Potassium Chloride (Klor-Con) 20 meq DAILYWBKFT PO Last administered on 08:38; Start 10/08/16 at 08:00 Divalproex Sodium (Depakote Sprinkles) 125 mg DAILY PO Last administered on 10/14 08:38; Start 10/09/16 at 09:00 Divalproex Sodium (Depakote Sprinkles) 250 mg HS PO Last administered on 19:48; Start 10/08/16 at 21:00 Sertraline HCl (Zoloft) 25 mg DAILY PO Last administered on 10/14/16 08:38; Start 10/12/16 at 09:00; Stop 10/14/16 at 18:17; Status DC Trazodone HCl (Desyrel) 50 mg PRN QHS PRN PO INSOMNIA, MAY REPEAT X1 Last administered on 10/14/16 19:47; Start 10/11/16 at 10:30 Ketorolac Tromethamine (Toradol) 30 mg 1X ONCE IM Last administered on 11:37; Start 10/14/16 at 11:40; Stop 10/14/16 at 11:41; Status DC Naproxen (Naprosyn) 250 mg TIDAFTMEAL PRN PO PAIN Last administered on 18:05; Start 10/14/16 at 16:45 Sertraline HCl (Zoloft) 50 mg DAILY PO ; Start 10/15/16 at 09:00 Active Scripts Active Reported Catapres (Clonidine Hcl) 0.1 Mg Tablet 1 Tab PO PRN Q6HRS PRN Amlodipine Besylate 10 Mg Tablet 10 Mg PO DAILY Lisinopril 20 Mg Tablet 1 Tab PO BID Diagnosis: Problems: (1) Anxiety disorder (2) Impulse control disorder (3) Major depressive disorder, recurrent episode (4) Dementia, vascular, with depression (5) Dementia, vascular, with delusions KOTA MUNOZ MD Oct 14, 2016 20:40
--- NOTE | 2016-10-15 01:54 | RAD ---
CT scan of the right knee without contrast 10/14/2016 CLINICAL HISTORY: Right knee pain with inability to bear weight. TECHNIQUE: Unenhanced, contiguous, 0.625 mm axial sections were obtained through the right knee. 2 mm reconstructed sagittal, axial and coronal images were obtained. One or more of the following individualized dose reduction techniques were utilized for this study: 1. Automated exposure control. 2. Adjustment of the mA and/or kV according to patient size. 3. Use of iterative reconstruction technique. FINDINGS: Comparison is made to radiographs of the right knee performed earlier today. No fracture or dislocation of the right knee is seen. Mild degenerative changes are seen involving all 3 compartments of the right knee. There is a moderate sized right suprapatellar joint effusion. The anterior and posterior cruciate ligaments appear to be intact. Scattered atherosclerotic calcification of the right popliteal artery and its branches is noted. IMPRESSION: Mild degenerative changes are seen involving the right knee. Moderate-sized right suprapatellar joint effusion. No acute osseous abnormality is seen. Electronically signed by: Chavez Baron MD (10/15/2016 1:51 AM)
[2016-10-15 05:58] VITALS: BP 117/70
[2016-10-15] MEDS: NAPROXEN 250 MG TABLET PO PRN (08:22)
[2016-10-15] MEDS: DIVALPROEX 125 MG CAP.SPRINK PO SCH ×2 (08:22→20:09)
[2016-10-15] MEDS: POTASSIUM CHLORIDE 20 MEQ TABLET.ER. PO SCH (08:22)
[2016-10-15] MEDS: CHOLECALCIFEROL (VITAMIN D3) 1,000 UNIT TABLET PO SCH (08:23)
[2016-10-15] MEDS: amLODIPine BESYLATE 10 MG TABLET PO SCH (08:23)
[2016-10-15] MEDS: LISINOPRIL 20 MG TABLET PO SCH ×2 (08:23→20:10)
[2016-10-15] MEDS: ACETAMINOPHEN 325 MG TABLET PO PRN (08:26)
[2016-10-15] MEDS: SERTRALINE 25 MG TABLET. PO SCH (08:26)
[2016-10-15 16:07] VITALS: BP 138/73
--- NOTE | 2016-10-15 19:47 | PDOC ---
Exam Isaiah Demential Exam: Isaiah Note: Please also refer to the separate dictated note~for this date of service dictated separately.~Patient seen individually. Discussed the patient with Nursing staff reviewed the chart.~Reviewed interim history and current functioning. Reviewed vital signs,~Labs/ Radiology~and current medications noted below. Continue current treatment with the changes noted in the dictated addendum note Assessment: Vital Signs: Vital Signs Date Time Temp Pulse Resp B/P (MAP) Pulse Ox O2 Delivery O2 Flow Rate FiO2 10/15/16 16:07 98.9 61 18 138/73 (94) 96 10/13/16 15:48 Room Air I&O Intake and Output 10/15/16 07:00 Intake Total 960 ml Output Total 1 ml Balance 959 ml Intake Oral 960 ml Output Urine Total 1 ml # Bowel Movements 3 Current Medications: Meds: Current Medications Acetaminophen (Tylenol) 650 mg PRN Q6HRS PRN PO PAIN / TEMP Last administered on 10/15/16 08:26; Start 10/07/16 at 17:30 Multi-Ingredient Ointment (Analgesic [place]) 1 kika PRN QID PRN TP MUSCLE PAIN; Start 10/07/16 at 17:30 Al Hydroxide/Mg Hydroxide (Mylanta Plus Xs) 15 ml PRN AFTMEALHC PRN PO DYSPEPSIA; Start 10/07/16 at 17:30 Magnesium Hydroxide (Milk Of Magnesia) 2,400 mg PRN QHS PRN PO CONSTIPATION; Start 10/07/16 at 17:30 Amlodipine Besylate (Norvasc) 10 mg DAILY PO Last administered on 10/15/16 08: 23; Start 10/08/16 at 09:00 Clonidine HCl (Catapres) 0.1 mg PRN Q6HRS PRN PO HYPERTENSION, SEE COMMENTS; Start 10/07/16 at 18:15 Lisinopril (Prinivil) 20 mg BID PO Last administered on 10/15/16 08:23; Start 10/07/16 at 21:00 Pneumococcal Polyvalent Vaccine (Pneumovax 23) 0.5 ml ONCE ONCE VAX IM ; Start 10/08/16 at 09:00; Stop 10/08/16 at 09:01; Status DC Olanzapine (ZyPREXA ZYDIS) 2.5 mg PRN Q4HRS PRN PO ANXIETY / AGITATION Last administered on 10/12/16 12:17; Start 10/07/16 at 23:15 Vitamin D (Vitamin D3) 2,000 unit DAILY PO Last administered on 10/15/16 08:23 ; Start 10/08/16 at 09:00 Potassium Chloride (Klor-Con) 20 meq DAILYWBKFT PO Last administered on 08:22; Start 10/08/16 at 08:00 Divalproex Sodium (Depakote Sprinkles) 125 mg DAILY PO Last administered on 10/15 08:22; Start 10/09/16 at 09:00 Divalproex Sodium (Depakote Sprinkles) 250 mg HS PO Last administered on 19:48; Start 10/08/16 at 21:00 Sertraline HCl (Zoloft) 25 mg DAILY PO Last administered on 10/14/16 08:38; Start 10/12/16 at 09:00; Stop 10/14/16 at 18:17; Status DC Trazodone HCl (Desyrel) 50 mg PRN QHS PRN PO INSOMNIA, MAY REPEAT X1 Last administered on 10/14/16 19:47; Start 10/11/16 at 10:30 Ketorolac Tromethamine (Toradol) 30 mg 1X ONCE IM Last administered on 11:37; Start 10/14/16 at 11:40; Stop 10/14/16 at 11:41; Status DC Naproxen (Naprosyn) 250 mg TIDAFTMEAL PRN PO PAIN Last administered on 08:22; Start 10/14/16 at 16:45 Sertraline HCl (Zoloft) 50 mg DAILY PO Last administered on 10/15/16 08:26; Start 10/15/16 at 09:00 Active Scripts Active Reported Catapres (Clonidine Hcl) 0.1 Mg Tablet 1 Tab PO PRN Q6HRS PRN Amlodipine Besylate 10 Mg Tablet 10 Mg PO DAILY Lisinopril 20 Mg Tablet 1 Tab PO BID Diagnosis: Problems: (1) Anxiety disorder (2) Impulse control disorder (3) Major depressive disorder, recurrent episode (4) Dementia, vascular, with depression (5) Dementia, vascular, with delusions KOTA MUNOZ MD Oct 15, 2016 19:47
[2016-10-16 06:05] VITALS: BP 126/67
[2016-10-16] MEDS: DIVALPROEX 125 MG CAP.SPRINK PO SCH ×2 (09:07→20:08)
[2016-10-16] MEDS: SERTRALINE 25 MG TABLET. PO SCH (09:07)
[2016-10-16] MEDS: amLODIPine BESYLATE 10 MG TABLET PO SCH (09:08)
[2016-10-16] MEDS: CHOLECALCIFEROL (VITAMIN D3) 1,000 UNIT TABLET PO SCH (09:08)
[2016-10-16] MEDS: LISINOPRIL 20 MG TABLET PO SCH ×2 (09:08→20:08)
[2016-10-16] MEDS: POTASSIUM CHLORIDE 20 MEQ TABLET.ER. PO SCH (09:09)
[2016-10-16 15:28] VITALS: BP 149/66
--- NOTE | 2016-10-16 20:05 | PDOC ---
Exam Isaiah Demential Exam: Isaiah Note: Please also refer to the separate dictated note~for this date of service dictated separately.~Patient seen individually. Discussed the patient with Nursing staff reviewed the chart.~Reviewed interim history and current functioning. Reviewed vital signs,~Labs/ Radiology~and current medications noted below. Continue current treatment with the changes noted in the dictated addendum note S/O: This is a late entry for date of service 10/13/2016 and covers elements not covered in my initial note of October 13. Overall per nursing report, the patient has been compliant with his medications, more social when someone goes and sits with him and talks to him as he was with me this evening and earlier in the day as he was with the nursing staff. He, however, does not come out for many activities unless encouraged to do so. He denies suicidal ideation. I met with him at some length in the evening of October 13. Review of Systems: No CV, , Pulmonary, Eye, ENT system symptoms on review. Reliability poor. MSE: Oriented to himself and situation, speech coherent, abstraction fair, computation impaired, language and function intact. Attention span is short. Mood and affect is improved. Labs: Reviewed. Impression: Unchanged from initial note. Plan: Continue current psychotropics. Assessment: Vital Signs: Vital Signs Date Time Temp Pulse Resp B/P (MAP) Pulse Ox O2 Delivery O2 Flow Rate FiO2 10/16/16 15:28 98.2 60 18 149/66 (93) 99 10/16/16 06:05 Room Air I&O Intake and Output 10/16/16 07:00 Intake Total 720 ml Balance 720 ml Intake Oral 720 ml Current Medications: Meds: Current Medications Acetaminophen (Tylenol) 650 mg PRN Q6HRS PRN PO PAIN / TEMP Last administered on 10/15/16t 08:26; Start 10/07/16 at 17:30 Multi-Ingredient Ointment (Analgesic [place]) 1 kika PRN QID PRN TP MUSCLE PAIN; Start 10/07/16 at 17:30 Al Hydroxide/Mg Hydroxide (Mylanta Plus Xs) 15 ml PRN AFTMEALHC PRN PO DYSPEPSIA; Start 10/07/16 at 17:30 Magnesium Hydroxide (Milk Of Magnesia) 2,400 mg PRN QHS PRN PO CONSTIPATION; Start 10/07/16 at 17:30 Amlodipine Besylate (Norvasc) 10 mg DAILY PO Last administered on 10/16/16 09: 08; Start 10/08/16 at 09:00 Clonidine HCl (Catapres) 0.1 mg PRN Q6HRS PRN PO HYPERTENSION, SEE COMMENTS; Start 10/07/16 at 18:15 Lisinopril (Prinivil) 20 mg BID PO Last administered on 10/16/16 09:08; Start 10/07/16 at 21:00 Pneumococcal Polyvalent Vaccine (Pneumovax 23) 0.5 ml ONCE ONCE VAX IM ; Start 10/08/16 at 09:00; Stop 10/08/16 at 09:01; Status DC Olanzapine (ZyPREXA ZYDIS) 2.5 mg PRN Q4HRS PRN PO ANXIETY / AGITATION Last administered on 10/12/16 12:17; Start 10/07/16 at 23:15 Vitamin D (Vitamin D3) 2,000 unit DAILY PO Last administered on 10/16/16 09:08 ; Start 10/08/16 at 09:00 Potassium Chloride (Klor-Con) 20 meq DAILYWBKFT PO Last administered on 09:09; Start 10/08/16 at 08:00 Divalproex Sodium (Depakote Sprinkles) 125 mg DAILY PO Last administered on 10/16 09:07; Start 10/09/16 at 09:00 Divalproex Sodium (Depakote Sprinkles) 250 mg HS PO Last administered on 20:09; Start 10/08/16 at 21:00 Sertraline HCl (Zoloft) 25 mg DAILY PO Last administered on 10/14/16 08:38; Start 10/12/16 at 09:00; Stop 10/14/16 at 18:17; Status DC Trazodone HCl (Desyrel) 50 mg PRN QHS PRN PO INSOMNIA, MAY REPEAT X1 Last administered on 10/14/16 19:47; Start 10/11/16 at 10:30 Ketorolac Tromethamine (Toradol) 30 mg 1X ONCE IM Last administered on 11:37; Start 10/14/16 at 11:40; Stop 10/14/16 at 11:41; Status DC Naproxen (Naprosyn) 250 mg TIDAFTMEAL PRN PO PAIN Last administered on 08:22; Start 10/14/16 at 16:45 Sertraline HCl (Zoloft) 50 mg DAILY PO Last administered on 10/16/16 09:07; Start 10/15/16 at 09:00; Stop 10/16/16 at 13:44; Status DC Sertraline HCl (Zoloft) 50 mg DAILY PO ; Start 10/17/16 at 09:00 Active Scripts Active Reported Catapres (Clonidine Hcl) 0.1 Mg Tablet 1 Tab PO PRN Q6HRS PRN Amlodipine Besylate 10 Mg Tablet 10 Mg PO DAILY Lisinopril 20 Mg Tablet 1 Tab PO BID KOTA MUNOZ MD Oct 16, 2016 20:05
[2016-10-16] MEDS: traZODone 50 MG TABLET. PO PRN (20:08)
--- NOTE | 2016-10-16 20:31 | PDOC ---
Exam Isaiah Demential Exam: Isaiah Note: Please also refer to the separate dictated note~for this date of service dictated separately.~Patient seen individually. Discussed the patient with Nursing staff reviewed the chart.~Reviewed interim history and current functioning. Reviewed vital signs,~Labs/ Radiology~and current medications noted below. Continue current treatment with the changes noted in the dictated addendum note DATE OF SERVICE: 10/14/2016. PSYCHIATRIC PROGRESS NOTE This is a late entry for Date of Service 10/14/2016. The patient seen individually on rounds the evening of 10/14/2016. Discussed with nursing staff. Reviewed the chart. Per nursing report the patient remains confused, forgetful but behaviorally he has not been aggressive. He complains of right knee pain and Dr. Antoine is working this up. X-ray and CT have been requested. He put himself on the floor on two occasions but denies doing this as I questioned him. REVIEW OF SYSTEMS Ambulation impaired. No CV, , pulmonary, eye, ENT systems symptoms on review. Reliability poor. MENTAL STATUS EXAM: Oriented to himself. Insight and judgment, recent and remote memory, attention and concentration, fund of knowledge poor consistent with his diagnoses mentioned in my initial note. PLAN: Increase Zoloft from 25 mg a day to 50 mg a day. Continue rest of the psychotropics unchanged for now. Assessment: Vital Signs: Vital Signs Date Time Temp Pulse Resp B/P (MAP) Pulse Ox O2 Delivery O2 Flow Rate FiO2 10/16/16 20:08 60 149/66 10/16/16 15:28 98.2 18 99 10/16/16 06:05 Room Air I&O Intake and Output 10/16/16 07:00 Intake Total 720 ml Balance 720 ml Intake Oral 720 ml Current Medications: Meds: Current Medications Acetaminophen (Tylenol) 650 mg PRN Q6HRS PRN PO PAIN / TEMP Last administered on 10/15/16 08:26; Start 10/07/16 at 17:30 Multi-Ingredient Ointment (Analgesic [place]) 1 kika PRN QID PRN TP MUSCLE PAIN; Start 10/07/16 at 17:30 Al Hydroxide/Mg Hydroxide (Mylanta Plus Xs) 15 ml PRN AFTMEALHC PRN PO DYSPEPSIA; Start 10/07/16 at 17:30 Magnesium Hydroxide (Milk Of Magnesia) 2,400 mg PRN QHS PRN PO CONSTIPATION; Start 10/07/16 at 17:30 Amlodipine Besylate (Norvasc) 10 mg DAILY PO Last administered on 10/16/16 09: 08; Start 10/08/16 at 09:00 Clonidine HCl (Catapres) 0.1 mg PRN Q6HRS PRN PO HYPERTENSION, SEE COMMENTS; Start 10/07/16 at 18:15 Lisinopril (Prinivil) 20 mg BID PO Last administered on 10/16/16 20:08; Start 10/07/16 at 21:00 Pneumococcal Polyvalent Vaccine (Pneumovax 23) 0.5 ml ONCE ONCE VAX IM ; Start 10/08/16 at 09:00; Stop 10/08/16 at 09:01; Status DC Olanzapine (ZyPREXA ZYDIS) 2.5 mg PRN Q4HRS PRN PO ANXIETY / AGITATION Last administered on 10/12/16 12:17; Start 10/07/16 at 23:15 Vitamin D (Vitamin D3) 2,000 unit DAILY PO Last administered on 10/16/16 09:08 ; Start 10/08/16 at 09:00 Potassium Chloride (Klor-Con) 20 meq DAILYWBKFT PO Last administered on 09:09; Start 10/08/16 at 08:00 Divalproex Sodium (Depakote Sprinkles) 125 mg DAILY PO Last administered on 10/16 09:07; Start 10/09/16 at 09:00 Divalproex Sodium (Depakote Sprinkles) 250 mg HS PO Last administered on 20:08; Start 10/08/16 at 21:00 Sertraline HCl (Zoloft) 25 mg DAILY PO Last administered on 10/14/16 08:38; Start 10/12/16 at 09:00; Stop 10/14/16 at 18:17; Status DC Trazodone HCl (Desyrel) 50 mg PRN QHS PRN PO INSOMNIA, MAY REPEAT X1 Last administered on 10/16/16 20:08; Start 10/11/16 at 10:30 Ketorolac Tromethamine (Toradol) 30 mg 1X ONCE IM Last administered on 11:37; Start 10/14/16 at 11:40; Stop 10/14/16 at 11:41; Status DC Naproxen (Naprosyn) 250 mg TIDAFTMEAL PRN PO PAIN Last administered on 08:22; Start 10/14/16 at 16:45 Sertraline HCl (Zoloft) 50 mg DAILY PO Last administered on 10/16/16 09:07; Start 10/15/16 at 09:00; Stop 10/16/16 at 13:44; Status DC Sertraline HCl (Zoloft) 50 mg DAILY PO ; Start 10/17/16 at 09:00 Active Scripts Active Reported Catapres (Clonidine Hcl) 0.1 Mg Tablet 1 Tab PO PRN Q6HRS PRN Amlodipine Besylate 10 Mg Tablet 10 Mg PO DAILY Lisinopril 20 Mg Tablet 1 Tab PO BID KOTA MUNOZ MD Oct 16, 2016 20:31
--- NOTE | 2016-10-16 21:13 | PDOC ---
Exam Isaiah Demential Exam: Isaiah Note: Please also refer to the separate dictated note~for this date of service dictated separately.~Patient seen individually. Discussed the patient with Nursing staff reviewed the chart.~Reviewed interim history and current functioning. Reviewed vital signs,~Labs/ Radiology~and current medications noted below. Continue current treatment with the changes noted in the dictated addendum note Assessment: Vital Signs: Vital Signs Date Time Temp Pulse Resp B/P (MAP) Pulse Ox O2 Delivery O2 Flow Rate FiO2 10/16/16 20:08 60 149/66 10/16/16 15:28 98.2 18 99 10/16/16 06:05 Room Air I&O Intake and Output 10/16/16 07:00 Intake Total 720 ml Balance 720 ml Intake Oral 720 ml Current Medications: Meds: Current Medications Acetaminophen (Tylenol) 650 mg PRN Q6HRS PRN PO PAIN / TEMP Last administered on 10/15/16 08:26; Start 10/07/16 at 17:30 Multi-Ingredient Ointment (Analgesic [place]) 1 ikka PRN QID PRN TP MUSCLE PAIN; Start 10/07/16 at 17:30 Al Hydroxide/Mg Hydroxide (Mylanta Plus Xs) 15 ml PRN AFTMEALHC PRN PO DYSPEPSIA; Start 10/07/16 at 17:30 Magnesium Hydroxide (Milk Of Magnesia) 2,400 mg PRN QHS PRN PO CONSTIPATION; Start 10/07/16 at 17:30 Amlodipine Besylate (Norvasc) 10 mg DAILY PO Last administered on 10/16/16 09: 08; Start 10/08/16 at 09:00 Clonidine HCl (Catapres) 0.1 mg PRN Q6HRS PRN PO HYPERTENSION, SEE COMMENTS; Start 10/07/16 at 18:15 Lisinopril (Prinivil) 20 mg BID PO Last administered on 10/16/16 20:08; Start 10/07/16 at 21:00 Pneumococcal Polyvalent Vaccine (Pneumovax 23) 0.5 ml ONCE ONCE VAX IM ; Start 10/08/16 at 09:00; Stop 10/08/16 at 09:01; Status DC Olanzapine (ZyPREXA ZYDIS) 2.5 mg PRN Q4HRS PRN PO ANXIETY / AGITATION Last administered on 10/12/16 12:17; Start 10/07/16 at 23:15 Vitamin D (Vitamin D3) 2,000 unit DAILY PO Last administered on 10/16/16 09:08 ; Start 10/08/16 at 09:00 Potassium Chloride (Klor-Con) 20 meq DAILYWBKFT PO Last administered on 09:09; Start 10/08/16 at 08:00 Divalproex Sodium (Depakote Sprinkles) 125 mg DAILY PO Last administered on 10/16 09:07; Start 10/09/16 at 09:00 Divalproex Sodium (Depakote Sprinkles) 250 mg HS PO Last administered on 20:08; Start 10/08/16 at 21:00 Sertraline HCl (Zoloft) 25 mg DAILY PO Last administered on 10/14/16 08:38; Start 10/12/16 at 09:00; Stop 10/14/16 at 18:17; Status DC Trazodone HCl (Desyrel) 50 mg PRN QHS PRN PO INSOMNIA, MAY REPEAT X1 Last administered on 10/16/16 20:08; Start 10/11/16 at 10:30 Ketorolac Tromethamine (Toradol) 30 mg 1X ONCE IM Last administered on 11:37; Start 10/14/16 at 11:40; Stop 10/14/16 at 11:41; Status DC Naproxen (Naprosyn) 250 mg TIDAFTMEAL PRN PO PAIN Last administered on 08:22; Start 10/14/16 at 16:45 Sertraline HCl (Zoloft) 50 mg DAILY PO Last administered on 10/16/16 09:07; Start 10/15/16 at 09:00; Stop 10/16/16 at 13:44; Status DC Sertraline HCl (Zoloft) 50 mg DAILY PO ; Start 10/17/16 at 09:00 Active Scripts Active Reported Catapres (Clonidine Hcl) 0.1 Mg Tablet 1 Tab PO PRN Q6HRS PRN Amlodipine Besylate 10 Mg Tablet 10 Mg PO DAILY Lisinopril 20 Mg Tablet 1 Tab PO BID Diagnosis: Problems: (1) Anxiety disorder (2) Impulse control disorder (3) Major depressive disorder, recurrent episode (4) Dementia, vascular, with depression (5) Dementia, vascular, with delusions KOTA MUNOZ MD Oct 16, 2016 21:13
[2016-10-17 05:42] VITALS: BP 184/86
[2016-10-17] MEDS: amLODIPine BESYLATE 10 MG TABLET PO SCH (07:20)
[2016-10-17] MEDS: CHOLECALCIFEROL (VITAMIN D3) 1,000 UNIT TABLET PO SCH (07:20)
[2016-10-17] MEDS: NAPROXEN 250 MG TABLET PO PRN ×2 (07:20→19:41)
[2016-10-17] MEDS: DIVALPROEX 125 MG CAP.SPRINK PO SCH ×2 (07:21→19:41)
[2016-10-17] MEDS: POTASSIUM CHLORIDE 20 MEQ TABLET.ER. PO SCH (07:21)
[2016-10-17] MEDS: LISINOPRIL 20 MG TABLET PO SCH ×2 (07:21→19:41)
[2016-10-17] MEDS: SERTRALINE 50 MG TABLET. PO SCH (07:40)
[2016-10-17 15:50] VITALS: BP 149/70
--- NOTE | 2016-10-17 20:02 | PDOC ---
Exam Isaiah Demential Exam: Isaiah Note: Please also refer to the separate dictated note~for this date of service dictated separately.~Patient seen individually. Discussed the patient with Nursing staff reviewed the chart.~Reviewed interim history and current functioning. Reviewed vital signs,~Labs/ Radiology~and current medications noted below. Continue current treatment with the changes noted in the dictated addendum note Assessment: Vital Signs: Vital Signs Date Time Temp Pulse Resp B/P (MAP) Pulse Ox O2 Delivery O2 Flow Rate FiO2 10/17/16 19:41 77 149/70 10/17/16 15:50 98.4 20 98 10/16/16 06:05 Room Air I&O Intake and Output 10/17/16 07:00 Intake Total 1440 ml Balance 1440 ml Intake Oral 1440 ml # Bowel Movements 1 Current Medications: Meds: Current Medications Acetaminophen (Tylenol) 650 mg PRN Q6HRS PRN PO PAIN / TEMP Last administered on 10/15/16 08:26; Start 10/07/16 at 17:30 Multi-Ingredient Ointment (Analgesic [place]) 1 kika PRN QID PRN TP MUSCLE PAIN; Start 10/07/16 at 17:30 Al Hydroxide/Mg Hydroxide (Mylanta Plus Xs) 15 ml PRN AFTMEALHC PRN PO DYSPEPSIA; Start 10/07/16 at 17:30 Magnesium Hydroxide (Milk Of Magnesia) 2,400 mg PRN QHS PRN PO CONSTIPATION; Start 10/07/16 at 17:30 Amlodipine Besylate (Norvasc) 10 mg DAILY PO Last administered on 10/17/16 07: 20; Start 10/08/16 at 09:00 Clonidine HCl (Catapres) 0.1 mg PRN Q6HRS PRN PO HYPERTENSION, SEE COMMENTS; Start 10/07/16 at 18:15 Lisinopril (Prinivil) 20 mg BID PO Last administered on 10/17/16 19:41; Start 10/07/16 at 21:00 Pneumococcal Polyvalent Vaccine (Pneumovax 23) 0.5 ml ONCE ONCE VAX IM ; Start 10/08/16 at 09:00; Stop 10/08/16 at 09:01; Status DC Olanzapine (ZyPREXA ZYDIS) 2.5 mg PRN Q4HRS PRN PO ANXIETY / AGITATION Last administered on 10/12/16 12:17; Start 10/07/16 at 23:15 Vitamin D (Vitamin D3) 2,000 unit DAILY PO Last administered on 10/17/16 07:20 ; Start 10/08/16 at 09:00 Potassium Chloride (Klor-Con) 20 meq DAILYWBKFT PO Last administered on 07:21; Start 10/08/16 at 08:00 Divalproex Sodium (Depakote Sprinkles) 125 mg DAILY PO Last administered on 10/17 07:21; Start 10/09/16 at 09:00 Divalproex Sodium (Depakote Sprinkles) 250 mg HS PO Last administered on 19:41; Start 10/08/16 at 21:00 Sertraline HCl (Zoloft) 25 mg DAILY PO Last administered on 10/14/16 08:38; Start 10/12/16 at 09:00; Stop 10/14/16 at 18:17; Status DC Trazodone HCl (Desyrel) 50 mg PRN QHS PRN PO INSOMNIA, MAY REPEAT X1 Last administered on 10/16/16 20:08; Start 10/11/16 at 10:30 Ketorolac Tromethamine (Toradol) 30 mg 1X ONCE IM Last administered on 11:37; Start 10/14/16 at 11:40; Stop 10/14/16 at 11:41; Status DC Naproxen (Naprosyn) 250 mg TIDAFTMEAL PRN PO PAIN Last administered on 19:41; Start 10/14/16 at 16:45 Sertraline HCl (Zoloft) 50 mg DAILY PO Last administered on 10/16/16 09:07; Start 10/15/16 at 09:00; Stop 10/16/16 at 13:44; Status DC Sertraline HCl (Zoloft) 50 mg DAILY PO Last administered on 10/17/16 07:40; Start 10/17/16 at 09:00 Active Scripts Active Reported Catapres (Clonidine Hcl) 0.1 Mg Tablet 1 Tab PO PRN Q6HRS PRN Amlodipine Besylate 10 Mg Tablet 10 Mg PO DAILY Lisinopril 20 Mg Tablet 1 Tab PO BID Diagnosis: Problems: (1) Anxiety disorder (2) Impulse control disorder (3) Major depressive disorder, recurrent episode (4) Dementia, vascular, with depression (5) Dementia, vascular, with delusions KOTA MUNOZ MD Oct 17, 2016 20:02
[2016-10-18 06:09] VITALS: BP 157/80
[2016-10-18] MEDS: LISINOPRIL 20 MG TABLET PO SCH ×2 (07:32→21:04)
[2016-10-18] MEDS: SERTRALINE 50 MG TABLET. PO SCH (07:32)
[2016-10-18] MEDS: DIVALPROEX 125 MG CAP.SPRINK PO SCH ×2 (07:32→21:03)
[2016-10-18] MEDS: POTASSIUM CHLORIDE 20 MEQ TABLET.ER. PO SCH (07:32)
[2016-10-18] MEDS: CHOLECALCIFEROL (VITAMIN D3) 1,000 UNIT TABLET PO SCH (07:33)
[2016-10-18] MEDS: amLODIPine BESYLATE 10 MG TABLET PO SCH (07:33)
[2016-10-18 09:35] LABS: BASO % 1 % (0-3); EOS # 1.1 x10^3/uL (0.0-0.7); EOS % 14 % (0-3); HEMATOCRIT 39.5 % (39.0-53.0); HEMOGLOBIN 13.4 g/dL (13.0-17.5); LYMPH # 0.7 x10^3/uL (1.0-4.8); LYMPH % 9 % (24-48); MEAN CORPUSCULAR HEMOGLOBIN 31 pg (25-35); MEAN CORPUSCULAR HGB CONC 34 g/dL (31-37); MEAN CORPUSCULAR VOLUME 91 fL (79-100); MONO # 0.7 x10^3/uL (0.0-1.1); MONO % 9 % (0-9); NEUT # 5.3 x10^3uL (1.8-7.7); NEUT % 68 % (31-73); PLATELET COUNT 250 x10^3/uL (140-400); RED BLOOD COUNT 4.33 x10^6/uL (4.30-5.70); RED CELL DISTRIBUTION WIDTH 14.5 % (11.5-14.5); WHITE BLOOD COUNT 7.9 x10^3/uL (4.0-11.0)
[2016-10-18 09:42] LABS: ALBUMIN 3.8 g/dL (3.4-5.0); ALBUMIN/GLOBULIN RATIO 1.1 (1.0-1.7); CALCIUM 8.8 mg/dL (8.5-10.1); CREATININE 1.1 mg/dL (0.7-1.3); GFR 63.8; POTASSIUM 3.7 mmol/L (3.5-5.1); TOTAL BILIRUBIN 0.9 mg/dL (0.2-1.0); TOTAL PROTEIN 7.4 g/dL (6.4-8.2)
[2016-10-18 15:51] VITALS: BP 150/68
[2016-10-18] MEDS: traZODone 50 MG TABLET. PO PRN (21:04)
--- NOTE | 2016-10-18 23:17 | PDOC ---
Exam Isaiah Demential Exam: Isaiah Note: Please also refer to the separate dictated note~for this date of service dictated separately.~Patient seen individually. Discussed the patient with Nursing staff reviewed the chart.~Reviewed interim history and current functioning. Reviewed vital signs,~Labs/ Radiology~and current medications noted below. Continue current treatment with the changes noted in the dictated addendum note Assessment: Vital Signs: Vital Signs Date Time Temp Pulse Resp B/P (MAP) Pulse Ox O2 Delivery O2 Flow Rate FiO2 10/18/16 21:04 76 150/68 10/18/16 15:51 98.7 18 98 Room Air I&O Intake and Output 10/18/16 07:00 Intake Total 1240 ml Balance 1240 ml Intake Oral 1240 ml Labs: Laboratory Tests Test 10/18/16 09:20 White Blood Count 7.9 x10^3/uL (4.0-11.0) Red Blood Count 4.33 x10^6/uL (4.30-5.70) Hemoglobin 13.4 g/dL (13.0-17.5) Hematocrit 39.5 % (39.0-53.0) Mean Corpuscular Volume 91 fL (79-100) Mean Corpuscular Hemoglobin 31 pg (25-35) Mean Corpuscular Hemoglobin Concent 34 g/dL (31-37) Red Cell Distribution Width 14.5 % (11.5-14.5) Platelet Count 250 x10^3/uL (140-400) Neutrophils (%) (Auto) 68 % (31-73) Lymphocytes (%) (Auto) 9 % (24-48) L Monocytes (%) (Auto) 9 % (0-9) Eosinophils (%) (Auto) 14 % (0-3) H Basophils (%) (Auto) 1 % (0-3) Neutrophils # (Auto) 5.3 x10^3uL (1.8-7.7) Lymphocytes # (Auto) 0.7 x10^3/uL (1.0-4.8) L Monocytes # (Auto) 0.7 x10^3/uL (0.0-1.1) Eosinophils # (Auto) 1.1 x10^3/uL (0.0-0.7) H Basophils # (Auto) 0.0 x10^3/uL (0.0-0.2) Sodium Level 145 mmol/L (136-145) Potassium Level 3.7 mmol/L (3.5-5.1) Chloride Level 106 mmol/L (98-107) Carbon Dioxide Level 32 mmol/L (21-32) Anion Gap 7 (6-14) Blood Urea Nitrogen 23 mg/dL (8-26) Creatinine 1.1 mg/dL (0.7-1.3) Estimated GFR (Cockcroft-Gault) 63.8 BUN/Creatinine Ratio 21 (6-20) H Glucose Level 77 mg/dL (70-99) Calcium Level 8.8 mg/dL (8.5-10.1) Total Bilirubin 0.9 mg/dL (0.2-1.0) Aspartate Amino Transferase (AST) 20 U/L (15-37) Alanine Aminotransferase (ALT) 32 U/L (16-63) Alkaline Phosphatase 164 U/L (46-116) H Total Protein 7.4 g/dL (6.4-8.2) Albumin 3.8 g/dL (3.4-5.0) Albumin/Globulin Ratio 1.1 (1.0-1.7) Current Medications: Meds: Current Medications Acetaminophen (Tylenol) 650 mg PRN Q6HRS PRN PO PAIN / TEMP Last administered on 10/15/16 08:26; Start 10/07/16 at 17:30 Multi-Ingredient Ointment (Analgesic [place]) 1 kika PRN QID PRN TP MUSCLE PAIN; Start 10/07/16 at 17:30 Al Hydroxide/Mg Hydroxide (Mylanta Plus Xs) 15 ml PRN AFTMEALHC PRN PO DYSPEPSIA; Start 10/07/16 at 17:30 Magnesium Hydroxide (Milk Of Magnesia) 2,400 mg PRN QHS PRN PO CONSTIPATION; Start 10/07/16 at 17:30 Amlodipine Besylate (Norvasc) 10 mg DAILY PO Last administered on 10/18/16 07: 33; Start 10/08/16 at 09:00 Clonidine HCl (Catapres) 0.1 mg PRN Q6HRS PRN PO HYPERTENSION, SEE COMMENTS; Start 10/07/16 at 18:15 Lisinopril (Prinivil) 20 mg BID PO Last administered on 10/18/16 21:04; Start 10/07/16 at 21:00 Pneumococcal Polyvalent Vaccine (Pneumovax 23) 0.5 ml ONCE ONCE VAX IM ; Start 10/08/16 at 09:00; Stop 10/08/16 at 09:01; Status DC Olanzapine (ZyPREXA ZYDIS) 2.5 mg PRN Q4HRS PRN PO ANXIETY / AGITATION Last administered on 10/12/16 12:17; Start 10/07/16 at 23:15 Vitamin D (Vitamin D3) 2,000 unit DAILY PO Last administered on 10/18/16 07:33 ; Start 10/08/16 at 09:00 Potassium Chloride (Klor-Con) 20 meq DAILYWBKFT PO Last administered on 07:32; Start 10/08/16 at 08:00 Divalproex Sodium (Depakote Sprinkles) 125 mg DAILY PO Last administered on 10/18 07:32; Start 10/09/16 at 09:00 Divalproex Sodium (Depakote Sprinkles) 250 mg HS PO Last administered on 21:03; Start 10/08/16 at 21:00 Sertraline HCl (Zoloft) 25 mg DAILY PO Last administered on 10/14/16 08:38; Start 10/12/16 at 09:00; Stop 10/14/16 at 18:17; Status DC Trazodone HCl (Desyrel) 50 mg PRN QHS PRN PO INSOMNIA, MAY REPEAT X1 Last administered on 10/18/16 21:04; Start 10/11/16 at 10:30 Ketorolac Tromethamine (Toradol) 30 mg 1X ONCE IM Last administered on 11:37; Start 10/14/16 at 11:40; Stop 10/14/16 at 11:41; Status DC Naproxen (Naprosyn) 250 mg TIDAFTMEAL PRN PO PAIN Last administered on 19:41; Start 10/14/16 at 16:45 Sertraline HCl (Zoloft) 50 mg DAILY PO Last administered on 10/16/16 09:07; Start 10/15/16 at 09:00; Stop 10/16/16 at 13:44; Status DC Sertraline HCl (Zoloft) 50 mg DAILY PO Last administered on 10/18/16t 07:32; Start 10/17/16 at 09:00 Active Scripts Active Reported Catapres (Clonidine Hcl) 0.1 Mg Tablet 1 Tab PO PRN Q6HRS PRN Amlodipine Besylate 10 Mg Tablet 10 Mg PO DAILY Lisinopril 20 Mg Tablet 1 Tab PO BID Diagnosis: Problems: (1) Anxiety disorder (2) Impulse control disorder (3) Major depressive disorder, recurrent episode (4) Dementia, vascular, with depression (5) Dementia, vascular, with delusions KOTA MUNOZ MD Oct 18, 2016 23:17
[2016-10-19 06:14] VITALS: BP 137/75
[2016-10-19] MEDS: POTASSIUM CHLORIDE 20 MEQ TABLET.ER. PO SCH (07:27)
[2016-10-19] MEDS: DIVALPROEX 125 MG CAP.SPRINK PO SCH ×2 (07:27→19:46)
[2016-10-19] MEDS: SERTRALINE 50 MG TABLET. PO SCH (07:28)
[2016-10-19] MEDS: LISINOPRIL 20 MG TABLET PO SCH ×2 (07:28→19:45)
[2016-10-19] MEDS: amLODIPine BESYLATE 10 MG TABLET PO SCH (07:29)
[2016-10-19] MEDS: CHOLECALCIFEROL (VITAMIN D3) 1,000 UNIT TABLET PO SCH (07:29)
[2016-10-19 16:34] VITALS: BP 144/69
[2016-10-19] MEDS: traZODone 50 MG TABLET. PO PRN (19:46)
--- NOTE | 2016-10-19 20:11 | PDOC ---
Exam Isaiah Demential Exam: Isaiah Note: Please also refer to the separate dictated note~for this date of service dictated separately.~Patient seen individually. Discussed the patient with Nursing staff reviewed the chart.~Reviewed interim history and current functioning. Reviewed vital signs,~Labs/ Radiology~and current medications noted below. Continue current treatment with the changes noted in the dictated addendum note Assessment: Vital Signs: Vital Signs Date Time Temp Pulse Resp B/P (MAP) Pulse Ox O2 Delivery O2 Flow Rate FiO2 10/19/16 19:45 76 150/68 10/19/16 16:34 99.1 16 98 10/19/16 06:14 Room Air I&O Intake and Output 10/19/16 07:00 Intake Total 1000 ml Balance 1000 ml Intake Oral 1000 ml Current Medications: Meds: Current Medications Acetaminophen (Tylenol) 650 mg PRN Q6HRS PRN PO PAIN / TEMP Last administered on 10/15/16 08:26; Start 10/07/16 at 17:30 Multi-Ingredient Ointment (Analgesic [place]) 1 kika PRN QID PRN TP MUSCLE PAIN; Start 10/07/16 at 17:30 Al Hydroxide/Mg Hydroxide (Mylanta Plus Xs) 15 ml PRN AFTMEALHC PRN PO DYSPEPSIA; Start 10/07/16 at 17:30 Magnesium Hydroxide (Milk Of Magnesia) 2,400 mg PRN QHS PRN PO CONSTIPATION; Start 10/07/16 at 17:30 Amlodipine Besylate (Norvasc) 10 mg DAILY PO Last administered on 10/19/16 07: 29; Start 10/08/16 at 09:00 Clonidine HCl (Catapres) 0.1 mg PRN Q6HRS PRN PO HYPERTENSION, SEE COMMENTS; Start 10/07/16 at 18:15 Lisinopril (Prinivil) 20 mg BID PO Last administered on 10/19/16 19:45; Start 10/07/16 at 21:00 Pneumococcal Polyvalent Vaccine (Pneumovax 23) 0.5 ml ONCE ONCE VAX IM ; Start 10/08/16 at 09:00; Stop 10/08/16 at 09:01; Status DC Olanzapine (ZyPREXA ZYDIS) 2.5 mg PRN Q4HRS PRN PO ANXIETY / AGITATION Last administered on 10/12/16 12:17; Start 10/07/16 at 23:15 Vitamin D (Vitamin D3) 2,000 unit DAILY PO Last administered on 10/19/16 07:29 ; Start 10/08/16 at 09:00 Potassium Chloride (Klor-Con) 20 meq DAILYWBKFT PO Last administered on 07:27; Start 10/08/16 at 08:00 Divalproex Sodium (Depakote Sprinkles) 125 mg DAILY PO Last administered on 10/19 07:27; Start 10/09/16 at 09:00 Divalproex Sodium (Depakote Sprinkles) 250 mg HS PO Last administered on 19:46; Start 10/08/16 at 21:00 Sertraline HCl (Zoloft) 25 mg DAILY PO Last administered on 10/14/16 08:38; Start 10/12/16 at 09:00; Stop 10/14/16 at 18:17; Status DC Trazodone HCl (Desyrel) 50 mg PRN QHS PRN PO INSOMNIA, MAY REPEAT X1 Last administered on 10/19/16 19:46; Start 10/11/16 at 10:30 Ketorolac Tromethamine (Toradol) 30 mg 1X ONCE IM Last administered on 11:37; Start 10/14/16 at 11:40; Stop 10/14/16 at 11:41; Status DC Naproxen (Naprosyn) 250 mg TIDAFTMEAL PRN PO PAIN Last administered on 19:41; Start 10/14/16 at 16:45 Sertraline HCl (Zoloft) 50 mg DAILY PO Last administered on 10/16/16 09:07; Start 10/15/16 at 09:00; Stop 10/16/16 at 13:44; Status DC Sertraline HCl (Zoloft) 50 mg DAILY PO Last administered on 10/19/16 07:28; Start 10/17/16 at 09:00 Active Scripts Active Reported Catapres (Clonidine Hcl) 0.1 Mg Tablet 1 Tab PO PRN Q6HRS PRN Amlodipine Besylate 10 Mg Tablet 10 Mg PO DAILY Lisinopril 20 Mg Tablet 1 Tab PO BID Diagnosis: Problems: (1) Anxiety disorder (2) Impulse control disorder (3) Major depressive disorder, recurrent episode (4) Dementia, vascular, with depression (5) Dementia, vascular, with delusions KOTA MUNOZ MD Oct 19, 2016 20:11
[2016-10-20 05:50] VITALS: BP 149/79
[2016-10-20] MEDS: POTASSIUM CHLORIDE 20 MEQ TABLET.ER. PO SCH (08:33)
[2016-10-20] MEDS: SERTRALINE 50 MG TABLET. PO SCH (08:33)
[2016-10-20] MEDS: CHOLECALCIFEROL (VITAMIN D3) 1,000 UNIT TABLET PO SCH (08:34)
[2016-10-20] MEDS: LISINOPRIL 20 MG TABLET PO SCH ×2 (08:34→19:58)
[2016-10-20] MEDS: NAPROXEN 250 MG TABLET PO PRN (08:34)
[2016-10-20] MEDS: amLODIPine BESYLATE 10 MG TABLET PO SCH (08:34)
[2016-10-20] MEDS: DIVALPROEX 125 MG CAP.SPRINK PO SCH ×2 (08:34→19:57)
[2016-10-20 15:30] VITALS: BP 156/69
--- NOTE | 2016-10-20 20:07 | PDOC ---
Exam Isaiah Demential Exam: Isaiah Note: Please also refer to the separate dictated note~for this date of service dictated separately.~Patient seen individually. Discussed the patient with Nursing staff reviewed the chart.~Reviewed interim history and current functioning. Reviewed vital signs,~Labs/ Radiology~and current medications noted below. Continue current treatment with the changes noted in the dictated addendum note Assessment: Vital Signs: Vital Signs Date Time Temp Pulse Resp B/P (MAP) Pulse Ox O2 Delivery O2 Flow Rate FiO2 10/20/16 19:58 78 156/69 10/20/16 15:30 98.7 18 98 10/19/16 06:14 Room Air I&O Intake and Output 10/20/16 07:00 Intake Total 980 ml Balance 980 ml Intake Oral 980 ml Current Medications: Meds: Current Medications Acetaminophen (Tylenol) 650 mg PRN Q6HRS PRN PO PAIN / TEMP Last administered on 10/15/16 08:26; Start 10/07/16 at 17:30 Multi-Ingredient Ointment (Analgesic [place]) 1 kika PRN QID PRN TP MUSCLE PAIN; Start 10/07/16 at 17:30 Al Hydroxide/Mg Hydroxide (Mylanta Plus Xs) 15 ml PRN AFTMEALHC PRN PO DYSPEPSIA; Start 10/07/16 at 17:30 Magnesium Hydroxide (Milk Of Magnesia) 2,400 mg PRN QHS PRN PO CONSTIPATION; Start 10/07/16 at 17:30 Amlodipine Besylate (Norvasc) 10 mg DAILY PO Last administered on 10/20/16 08: 34; Start 10/08/16 at 09:00 Clonidine HCl (Catapres) 0.1 mg PRN Q6HRS PRN PO HYPERTENSION, SEE COMMENTS; Start 10/07/16 at 18:15 Lisinopril (Prinivil) 20 mg BID PO Last administered on 10/20/16 19:58; Start 10/07/16 at 21:00 Pneumococcal Polyvalent Vaccine (Pneumovax 23) 0.5 ml ONCE ONCE VAX IM ; Start 10/08/16 at 09:00; Stop 10/08/16 at 09:01; Status DC Olanzapine (ZyPREXA ZYDIS) 2.5 mg PRN Q4HRS PRN PO ANXIETY / AGITATION Last administered on 10/12/16 12:17; Start 10/07/16 at 23:15 Vitamin D (Vitamin D3) 2,000 unit DAILY PO Last administered on 10/20/16 08:34 ; Start 10/08/16 at 09:00 Potassium Chloride (Klor-Con) 20 meq DAILYWBKFT PO Last administered on 08:33; Start 10/08/16 at 08:00 Divalproex Sodium (Depakote Sprinkles) 125 mg DAILY PO Last administered on 08:34; Start 10/09/16 at 09:00 Divalproex Sodium (Depakote Sprinkles) 250 mg HS PO Last administered on 19:57; Start 10/08/16 at 21:00 Sertraline HCl (Zoloft) 25 mg DAILY PO Last administered on 10/14/16 08:38; Start 10/12/16 at 09:00; Stop 10/14/16 at 18:17; Status DC Trazodone HCl (Desyrel) 50 mg PRN QHS PRN PO INSOMNIA, MAY REPEAT X1 Last administered on 10/19/16 19:46; Start 10/11/16 at 10:30 Ketorolac Tromethamine (Toradol) 30 mg 1X ONCE IM Last administered on 11:37; Start 10/14/16 at 11:40; Stop 10/14/16 at 11:41; Status DC Naproxen (Naprosyn) 250 mg TIDAFTMEAL PRN PO PAIN Last administered on 08:34; Start 10/14/16 at 16:45 Sertraline HCl (Zoloft) 50 mg DAILY PO Last administered on 10/16/16 09:07; Start 10/15/16 at 09:00; Stop 10/16/16 at 13:44; Status DC Sertraline HCl (Zoloft) 50 mg DAILY PO Last administered on 10/20/16 08:33; Start 10/17/16 at 09:00 Active Scripts Active Reported Catapres (Clonidine Hcl) 0.1 Mg Tablet 1 Tab PO PRN Q6HRS PRN Amlodipine Besylate 10 Mg Tablet 10 Mg PO DAILY Lisinopril 20 Mg Tablet 1 Tab PO BID Diagnosis: Problems: (1) Anxiety disorder (2) Impulse control disorder (3) Major depressive disorder, recurrent episode (4) Dementia, vascular, with depression (5) Dementia, vascular, with delusions KOTA MUNOZ MD Oct 20, 2016 20:07
--- NOTE | 2016-10-20 20:48 | PDOC ---
Exam Isaiah Demential Exam: Isaiah Note: Please also refer to the separate dictated note~for this date of service dictated separately.~Patient seen individually. Discussed the patient with Nursing staff reviewed the chart.~Reviewed interim history and current functioning. Reviewed vital signs,~Labs/ Radiology~and current medications noted below. Continue current treatment with the changes noted in the dictated addendum note PSYCHIATRIC PROGRESS NOTE This is a late entry for Date of Service 10/15/2016. The patient seen individually. Discussed with nursing staff. Reviewed the chart evening of October 15, 2016. This note covers elements not covered in my initial of 10/15/2016. Per nursing report the patient has a good day. He was somewhat cranky this morning but then he has been little more interactive. Social service staff are looking for placement. No CV, , pulmonary, eye, ENT systems symptoms on review. I met with him in his room. MENTAL STATUS EXAM: Oriented to himself. Insight and judgment, recent and remote memory, attention and concentration, fund of knowledge poor consistent with his diagnoses mentioned in my initial note. PLAN: Continue current psychotropics, adjust as clinically indicated. Assessment: Vital Signs: Vital Signs Date Time Temp Pulse Resp B/P (MAP) Pulse Ox O2 Delivery O2 Flow Rate FiO2 10/20/16 19:58 78 156/69 10/20/16 15:30 98.7 18 98 10/19/16 06:14 Room Air I&O Intake and Output 10/20/16 07:00 Intake Total 980 ml Balance 980 ml Intake Oral 980 ml Current Medications: Meds: Current Medications Acetaminophen (Tylenol) 650 mg PRN Q6HRS PRN PO PAIN / TEMP Last administered on 10/15/16 08:26; Start 10/07/16 at 17:30 Multi-Ingredient Ointment (Analgesic [place]) 1 kika PRN QID PRN TP MUSCLE PAIN; Start 10/07/16 at 17:30 Al Hydroxide/Mg Hydroxide (Mylanta Plus Xs) 15 ml PRN AFTMEALHC PRN PO DYSPEPSIA; Start 10/07/16 at 17:30 Magnesium Hydroxide (Milk Of Magnesia) 2,400 mg PRN QHS PRN PO CONSTIPATION; Start 10/07/16 at 17:30 Amlodipine Besylate (Norvasc) 10 mg DAILY PO Last administered on 10/20/16 08: 34; Start 10/08/16 at 09:00 Clonidine HCl (Catapres) 0.1 mg PRN Q6HRS PRN PO HYPERTENSION, SEE COMMENTS; Start 10/07/16 at 18:15 Lisinopril (Prinivil) 20 mg BID PO Last administered on 10/20/16 19:58; Start 10/07/16 at 21:00 Pneumococcal Polyvalent Vaccine (Pneumovax 23) 0.5 ml ONCE ONCE VAX IM ; Start 10/08/16 at 09:00; Stop 10/08/16 at 09:01; Status DC Olanzapine (ZyPREXA ZYDIS) 2.5 mg PRN Q4HRS PRN PO ANXIETY / AGITATION Last administered on 10/12/16 12:17; Start 10/07/16 at 23:15 Vitamin D (Vitamin D3) 2,000 unit DAILY PO Last administered on 10/20/16 08:34 ; Start 10/08/16 at 09:00 Potassium Chloride (Klor-Con) 20 meq DAILYWBKFT PO Last administered on 08:33; Start 10/08/16 at 08:00 Divalproex Sodium (Depakote Sprinkles) 125 mg DAILY PO Last administered on 08:34; Start 10/09/16 at 09:00 Divalproex Sodium (Depakote Sprinkles) 250 mg HS PO Last administered on 19:57; Start 10/08/16 at 21:00 Sertraline HCl (Zoloft) 25 mg DAILY PO Last administered on 10/14/16 08:38; Start 10/12/16 at 09:00; Stop 10/14/16 at 18:17; Status DC Trazodone HCl (Desyrel) 50 mg PRN QHS PRN PO INSOMNIA, MAY REPEAT X1 Last administered on 10/19/16 19:46; Start 10/11/16 at 10:30 Ketorolac Tromethamine (Toradol) 30 mg 1X ONCE IM Last administered on 11:37; Start 10/14/16 at 11:40; Stop 10/14/16 at 11:41; Status DC Naproxen (Naprosyn) 250 mg TIDAFTMEAL PRN PO PAIN Last administered on 08:34; Start 10/14/16 at 16:45 Sertraline HCl (Zoloft) 50 mg DAILY PO Last administered on 10/16/16 09:07; Start 10/15/16 at 09:00; Stop 10/16/16 at 13:44; Status DC Sertraline HCl (Zoloft) 50 mg DAILY PO Last administered on 10/20/16 08:33; Start 10/17/16 at 09:00 Active Scripts Active Reported Catapres (Clonidine Hcl) 0.1 Mg Tablet 1 Tab PO PRN Q6HRS PRN Amlodipine Besylate 10 Mg Tablet 10 Mg PO DAILY Lisinopril 20 Mg Tablet 1 Tab PO BID KOTA MUNOZ MD Oct 20, 2016 20:48
[2016-10-21 05:57] VITALS: BP 172/73
[2016-10-21] MEDS: LISINOPRIL 20 MG TABLET PO SCH ×2 (08:26→20:00)
[2016-10-21] MEDS: DIVALPROEX 125 MG CAP.SPRINK PO SCH ×2 (08:26→19:59)
[2016-10-21] MEDS: CHOLECALCIFEROL (VITAMIN D3) 1,000 UNIT TABLET PO SCH (08:26)
[2016-10-21] MEDS: SERTRALINE 50 MG TABLET. PO SCH (08:26)
[2016-10-21] MEDS: amLODIPine BESYLATE 10 MG TABLET PO SCH (08:26)
[2016-10-21] MEDS: POTASSIUM CHLORIDE 20 MEQ TABLET.ER. PO SCH (08:26)
[2016-10-21 15:55] VITALS: BP 131/68
--- NOTE | 2016-10-21 20:11 | PDOC ---
Exam Isaiah Demential Exam: Isaiah Note: Please also refer to the separate dictated note~for this date of service dictated separately.~Patient seen individually. Discussed the patient with Nursing staff reviewed the chart.~Reviewed interim history and current functioning. Reviewed vital signs,~Labs/ Radiology~and current medications noted below. Continue current treatment with the changes noted in the dictated addendum note Assessment: Vital Signs: Vital Signs Date Time Temp Pulse Resp B/P (MAP) Pulse Ox O2 Delivery O2 Flow Rate FiO2 10/21/16 20:00 74 131/68 10/21/16 15:55 97.8 18 94 Room Air I&O Intake and Output 10/21/16 07:00 Intake Total 1320 ml Balance 1320 ml Intake Oral 1320 ml Current Medications: Meds: Current Medications Acetaminophen (Tylenol) 650 mg PRN Q6HRS PRN PO PAIN / TEMP Last administered on 10/15/16 08:26; Start 10/07/16 at 17:30 Multi-Ingredient Ointment (Analgesic [place]) 1 kika PRN QID PRN TP MUSCLE PAIN; Start 10/07/16 at 17:30 Al Hydroxide/Mg Hydroxide (Mylanta Plus Xs) 15 ml PRN AFTMEALHC PRN PO DYSPEPSIA; Start 10/07/16 at 17:30 Magnesium Hydroxide (Milk Of Magnesia) 2,400 mg PRN QHS PRN PO CONSTIPATION; Start 10/07/16 at 17:30 Amlodipine Besylate (Norvasc) 10 mg DAILY PO Last administered on 10/21/16 08: 26; Start 10/08/16 at 09:00 Clonidine HCl (Catapres) 0.1 mg PRN Q6HRS PRN PO HYPERTENSION, SEE COMMENTS; Start 10/07/16 at 18:15 Lisinopril (Prinivil) 20 mg BID PO Last administered on 10/21/16 20:00; Start 10/07/16 at 21:00 Pneumococcal Polyvalent Vaccine (Pneumovax 23) 0.5 ml ONCE ONCE VAX IM ; Start 10/08/16 at 09:00; Stop 10/08/16 at 09:01; Status DC Olanzapine (ZyPREXA ZYDIS) 2.5 mg PRN Q4HRS PRN PO ANXIETY / AGITATION Last administered on 10/21/16 13:00; Start 10/07/16 at 23:15 Vitamin D (Vitamin D3) 2,000 unit DAILY PO Last administered on 10/21/16 08:26 ; Start 10/08/16 at 09:00 Potassium Chloride (Klor-Con) 20 meq DAILYWBKFT PO Last administered on 08:26; Start 10/08/16 at 08:00 Divalproex Sodium (Depakote Sprinkles) 125 mg DAILY PO Last administered on 08:26; Start 10/09/16 at 09:00 Divalproex Sodium (Depakote Sprinkles) 250 mg HS PO Last administered on 19:59; Start 10/08/16 at 21:00 Sertraline HCl (Zoloft) 25 mg DAILY PO Last administered on 10/14/16 08:38; Start 10/12/16 at 09:00; Stop 10/14/16 at 18:17; Status DC Trazodone HCl (Desyrel) 50 mg PRN QHS PRN PO INSOMNIA, MAY REPEAT X1 Last administered on 10/19/16 19:46; Start 10/11/16 at 10:30 Ketorolac Tromethamine (Toradol) 30 mg 1X ONCE IM Last administered on 11:37; Start 10/14/16 at 11:40; Stop 10/14/16 at 11:41; Status DC Naproxen (Naprosyn) 250 mg TIDAFTMEAL PRN PO PAIN Last administered on 08:34; Start 10/14/16 at 16:45 Sertraline HCl (Zoloft) 50 mg DAILY PO Last administered on 10/16/16 09:07; Start 10/15/16 at 09:00; Stop 10/16/16 at 13:44; Status DC Sertraline HCl (Zoloft) 50 mg DAILY PO Last administered on 10/21/16 08:26; Start 10/17/16 at 09:00 Active Scripts Active Reported Catapres (Clonidine Hcl) 0.1 Mg Tablet 1 Tab PO PRN Q6HRS PRN Amlodipine Besylate 10 Mg Tablet 10 Mg PO DAILY Lisinopril 20 Mg Tablet 1 Tab PO BID Diagnosis: Problems: (1) Anxiety disorder (2) Impulse control disorder (3) Major depressive disorder, recurrent episode (4) Dementia, vascular, with depression (5) Dementia, vascular, with delusions KOTA MUNOZ MD Oct 21, 2016 20:11
--- NOTE | 2016-10-21 20:28 | PDOC ---
Exam Isaiah Demential Exam: Isaiah Note: Please also refer to the separate dictated note~for this date of service dictated separately.~Patient seen individually. Discussed the patient with Nursing staff reviewed the chart.~Reviewed interim history and current functioning. Reviewed vital signs,~Labs/ Radiology~and current medications noted below. Continue current treatment with the changes noted in the dictated addendum note S/O: This is a late entry for date of service 10/16/2016 and covers elements not covered in my initial note. The patient was staffed with the entire team in morning of 10/16/2016 and seen individually in evening of 10/16/2016. During the treatment team meeting with the entire team, the patient's son Benoit and daughter, Hannah attended the conference. We had a lengthy discussion about his diagnoses and medications. The patient slept 7 hours previous night, average 4 hours, and appetite 90%. Review of Systems: No CV, , Pulmonary, Eye system symptoms on review. He denies any further right knee pain. Reliability poor. MSE: The patient is quite verbal, open, animated in evening of 10/16/2016 as I met with him. Short-term memory is impaired. Speech is coherent. Abstraction fair. Computation impaired. Language function intact. Mood and affect lability is improved. Labs: Reviewed. Imp: Unchanged from initial note. Plan: Continue current psychotropics mentioned in my initial note. Despite subtherapeutic valproic acid level, the patient is doing well. We will leave the dosage unchanged for now. Assessment: Vital Signs: Vital Signs Date Time Temp Pulse Resp B/P (MAP) Pulse Ox O2 Delivery O2 Flow Rate FiO2 10/21/16 20:00 74 131/68 10/21/16 15:55 97.8 18 94 Room Air I&O Intake and Output 10/21/16 07:00 Intake Total 1320 ml Balance 1320 ml Intake Oral 1320 ml Current Medications: Meds: Current Medications Acetaminophen (Tylenol) 650 mg PRN Q6HRS PRN PO PAIN / TEMP Last administered on 10/15/16t 08:26; Start 10/07/16 at 17:30 Multi-Ingredient Ointment (Analgesic [place]) 1 kika PRN QID PRN TP MUSCLE PAIN; Start 10/07/16 at 17:30 Al Hydroxide/Mg Hydroxide (Mylanta Plus Xs) 15 ml PRN AFTMEALHC PRN PO DYSPEPSIA; Start 10/07/16 at 17:30 Magnesium Hydroxide (Milk Of Magnesia) 2,400 mg PRN QHS PRN PO CONSTIPATION; Start 10/07/16 at 17:30 Amlodipine Besylate (Norvasc) 10 mg DAILY PO Last administered on 10/21/16 08: 26; Start 10/08/16 at 09:00 Clonidine HCl (Catapres) 0.1 mg PRN Q6HRS PRN PO HYPERTENSION, SEE COMMENTS; Start 10/07/16 at 18:15 Lisinopril (Prinivil) 20 mg BID PO Last administered on 10/21/16 20:00; Start 10/07/16 at 21:00 Pneumococcal Polyvalent Vaccine (Pneumovax 23) 0.5 ml ONCE ONCE VAX IM ; Start 10/08/16 at 09:00; Stop 10/08/16 at 09:01; Status DC Olanzapine (ZyPREXA ZYDIS) 2.5 mg PRN Q4HRS PRN PO ANXIETY / AGITATION Last administered on 10/21/16 13:00; Start 10/07/16 at 23:15 Vitamin D (Vitamin D3) 2,000 unit DAILY PO Last administered on 10/21/16 08:26 ; Start 10/08/16 at 09:00 Potassium Chloride (Klor-Con) 20 meq DAILYWBKFT PO Last administered on 08:26; Start 10/08/16 at 08:00 Divalproex Sodium (Depakote Sprinkles) 125 mg DAILY PO Last administered on 08:26; Start 10/09/16 at 09:00 Divalproex Sodium (Depakote Sprinkles) 250 mg HS PO Last administered on 19:59; Start 10/08/16 at 21:00 Sertraline HCl (Zoloft) 25 mg DAILY PO Last administered on 10/14/16 08:38; Start 10/12/16 at 09:00; Stop 10/14/16 at 18:17; Status DC Trazodone HCl (Desyrel) 50 mg PRN QHS PRN PO INSOMNIA, MAY REPEAT X1 Last administered on 10/19/16 19:46; Start 10/11/16 at 10:30 Ketorolac Tromethamine (Toradol) 30 mg 1X ONCE IM Last administered on 11:37; Start 10/14/16 at 11:40; Stop 10/14/16 at 11:41; Status DC Naproxen (Naprosyn) 250 mg TIDAFTMEAL PRN PO PAIN Last administered on 08:34; Start 10/14/16 at 16:45 Sertraline HCl (Zoloft) 50 mg DAILY PO Last administered on 10/16/16 09:07; Start 10/15/16 at 09:00; Stop 10/16/16 at 13:44; Status DC Sertraline HCl (Zoloft) 50 mg DAILY PO Last administered on 10/21/16 08:26; Start 10/17/16 at 09:00 Active Scripts Active Reported Catapres (Clonidine Hcl) 0.1 Mg Tablet 1 Tab PO PRN Q6HRS PRN Amlodipine Besylate 10 Mg Tablet 10 Mg PO DAILY Lisinopril 20 Mg Tablet 1 Tab PO BID KOTA MUNOZ MD Oct 21, 2016 20:28
--- NOTE | 2016-10-21 21:16 | PDOC ---
Exam Isaiah Demential Exam: Isaiah Note: Please also refer to the separate dictated note~for this date of service dictated separately.~Patient seen individually. Discussed the patient with Nursing staff reviewed the chart.~Reviewed interim history and current functioning. Reviewed vital signs,~Labs/ Radiology~and current medications noted below. Continue current treatment with the changes noted in the dictated addendum note S/O: This is a late entry for date of service 10/17/2016. The patient was seen individually in the evening of October 17, discussed with nursing staff, and reviewed the chart. This note covers elements not covered in my initial note. Per nursing report, the patient remains confused, forgetful, but pleasant, cooperative, and verbal. Review of Systems: Ambulation impaired, in his wheelchair. No CV, , Pulmonary, Eye system symptoms on review. MSE: Oriented to himself, at times to situation. Speech is coherent. Abstraction fair. Computation impaired. Language function intact. Attention span short. Mood and affect improved and appears more stable. Labs: Reviewed. Imp: Unchanged. Plan: Continue current psychotropics mentioned in my initial note. Assessment: Vital Signs: Vital Signs Date Time Temp Pulse Resp B/P (MAP) Pulse Ox O2 Delivery O2 Flow Rate FiO2 10/21/16 20:00 74 131/68 10/21/16 15:55 97.8 18 94 Room Air I&O Intake and Output 10/21/16 07:00 Intake Total 1320 ml Balance 1320 ml Intake Oral 1320 ml Current Medications: Meds: Current Medications Acetaminophen (Tylenol) 650 mg PRN Q6HRS PRN PO PAIN / TEMP Last administered on 10/15/16 08:26; Start 10/07/16 at 17:30 Multi-Ingredient Ointment (Analgesic [place]) 1 kika PRN QID PRN TP MUSCLE PAIN; Start 10/07/16 at 17:30 Al Hydroxide/Mg Hydroxide (Mylanta Plus Xs) 15 ml PRN AFTMEALHC PRN PO DYSPEPSIA; Start 10/07/16 at 17:30 Magnesium Hydroxide (Milk Of Magnesia) 2,400 mg PRN QHS PRN PO CONSTIPATION; Start 10/07/16 at 17:30 Amlodipine Besylate (Norvasc) 10 mg DAILY PO Last administered on 10/21/16 08: 26; Start 10/08/16 at 09:00 Clonidine HCl (Catapres) 0.1 mg PRN Q6HRS PRN PO HYPERTENSION, SEE COMMENTS; Start 10/07/16 at 18:15 Lisinopril (Prinivil) 20 mg BID PO Last administered on 10/21/16 20:00; Start 10/07/16 at 21:00 Pneumococcal Polyvalent Vaccine (Pneumovax 23) 0.5 ml ONCE ONCE VAX IM ; Start 10/08/16 at 09:00; Stop 10/08/16 at 09:01; Status DC Olanzapine (ZyPREXA ZYDIS) 2.5 mg PRN Q4HRS PRN PO ANXIETY / AGITATION Last administered on 10/21/16 13:00; Start 10/07/16 at 23:15 Vitamin D (Vitamin D3) 2,000 unit DAILY PO Last administered on 10/21/16 08:26 ; Start 10/08/16 at 09:00 Potassium Chloride (Klor-Con) 20 meq DAILYWBKFT PO Last administered on 08:26; Start 10/08/16 at 08:00 Divalproex Sodium (Depakote Sprinkles) 125 mg DAILY PO Last administered on 08:26; Start 10/09/16 at 09:00 Divalproex Sodium (Depakote Sprinkles) 250 mg HS PO Last administered on 19:59; Start 10/08/16 at 21:00 Sertraline HCl (Zoloft) 25 mg DAILY PO Last administered on 10/14/16 08:38; Start 10/12/16 at 09:00; Stop 10/14/16 at 18:17; Status DC Trazodone HCl (Desyrel) 50 mg PRN QHS PRN PO INSOMNIA, MAY REPEAT X1 Last administered on 10/19/16 19:46; Start 10/11/16 at 10:30 Ketorolac Tromethamine (Toradol) 30 mg 1X ONCE IM Last administered on 11:37; Start 10/14/16 at 11:40; Stop 10/14/16 at 11:41; Status DC Naproxen (Naprosyn) 250 mg TIDAFTMEAL PRN PO PAIN Last administered on 08:34; Start 10/14/16 at 16:45 Sertraline HCl (Zoloft) 50 mg DAILY PO Last administered on 10/16/16 09:07; Start 10/15/16 at 09:00; Stop 10/16/16 at 13:44; Status DC Sertraline HCl (Zoloft) 50 mg DAILY PO Last administered on 10/21/16 08:26; Start 10/17/16 at 09:00 Active Scripts Active Reported Catapres (Clonidine Hcl) 0.1 Mg Tablet 1 Tab PO PRN Q6HRS PRN Amlodipine Besylate 10 Mg Tablet 10 Mg PO DAILY Lisinopril 20 Mg Tablet 1 Tab PO BID KOTA MUNOZ MD Oct 21, 2016 21:16
[2016-10-22 05:50] VITALS: BP 130/79
[2016-10-22] MEDS: NAPROXEN 250 MG TABLET PO PRN (08:15)
[2016-10-22] MEDS: SERTRALINE 50 MG TABLET. PO SCH (08:16)
[2016-10-22] MEDS: CHOLECALCIFEROL (VITAMIN D3) 1,000 UNIT TABLET PO SCH (08:16)
[2016-10-22] MEDS: LISINOPRIL 20 MG TABLET PO SCH ×2 (08:16→19:59)
[2016-10-22] MEDS: amLODIPine BESYLATE 10 MG TABLET PO SCH (08:16)
[2016-10-22] MEDS: DIVALPROEX 125 MG CAP.SPRINK PO SCH ×2 (08:16→19:59)
[2016-10-22] MEDS: POTASSIUM CHLORIDE 20 MEQ TABLET.ER. PO SCH (08:17)
[2016-10-22 16:06] VITALS: BP 151/81
--- NOTE | 2016-10-22 19:47 | PDOC ---
Exam Isaiah Demential Exam: Isaiah Note: Please also refer to the separate dictated note~for this date of service dictated separately.~Patient seen individually. Discussed the patient with Nursing staff reviewed the chart.~Reviewed interim history and current functioning. Reviewed vital signs,~Labs/ Radiology~and current medications noted below. Continue current treatment with the changes noted in the dictated addendum note Assessment: Vital Signs: Vital Signs Date Time Temp Pulse Resp B/P (MAP) Pulse Ox O2 Delivery O2 Flow Rate FiO2 10/22/16 16:06 97.6 67 20 151/81 (104) 95 Room Air I&O Intake and Output 10/22/16 07:00 Intake Total 1200 ml Balance 1200 ml Intake Oral 1200 ml Current Medications: Meds: Current Medications Acetaminophen (Tylenol) 650 mg PRN Q6HRS PRN PO PAIN / TEMP Last administered on 10/15/16 08:26; Start 10/07/16 at 17:30 Multi-Ingredient Ointment (Analgesic [place]) 1 kika PRN QID PRN TP MUSCLE PAIN; Start 10/07/16 at 17:30 Al Hydroxide/Mg Hydroxide (Mylanta Plus Xs) 15 ml PRN AFTMEALHC PRN PO DYSPEPSIA; Start 10/07/16 at 17:30 Magnesium Hydroxide (Milk Of Magnesia) 2,400 mg PRN QHS PRN PO CONSTIPATION; Start 10/07/16 at 17:30 Amlodipine Besylate (Norvasc) 10 mg DAILY PO Last administered on 10/22/16 08: 16; Start 10/08/16 at 09:00 Clonidine HCl (Catapres) 0.1 mg PRN Q6HRS PRN PO HYPERTENSION, SEE COMMENTS; Start 10/07/16 at 18:15 Lisinopril (Prinivil) 20 mg BID PO Last administered on 10/22/16 08:16; Start 10/07/16 at 21:00 Pneumococcal Polyvalent Vaccine (Pneumovax 23) 0.5 ml ONCE ONCE VAX IM ; Start 10/08/16 at 09:00; Stop 10/08/16 at 09:01; Status DC Olanzapine (ZyPREXA ZYDIS) 2.5 mg PRN Q4HRS PRN PO ANXIETY / AGITATION Last administered on 10/21/16 13:00; Start 10/07/16 at 23:15 Vitamin D (Vitamin D3) 2,000 unit DAILY PO Last administered on 10/22/16 08:16 ; Start 10/08/16 at 09:00 Potassium Chloride (Klor-Con) 20 meq DAILYWBKFT PO Last administered on 08:17; Start 10/08/16 at 08:00 Divalproex Sodium (Depakote Sprinkles) 125 mg DAILY PO Last administered on 08:16; Start 10/09/16 at 09:00 Divalproex Sodium (Depakote Sprinkles) 250 mg HS PO Last administered on 19:59; Start 10/08/16 at 21:00 Sertraline HCl (Zoloft) 25 mg DAILY PO Last administered on 10/14/16 08:38; Start 10/12/16 at 09:00; Stop 10/14/16 at 18:17; Status DC Trazodone HCl (Desyrel) 50 mg PRN QHS PRN PO INSOMNIA, MAY REPEAT X1 Last administered on 10/19/16 19:46; Start 10/11/16 at 10:30 Ketorolac Tromethamine (Toradol) 30 mg 1X ONCE IM Last administered on 11:37; Start 10/14/16 at 11:40; Stop 10/14/16 at 11:41; Status DC Naproxen (Naprosyn) 250 mg TIDAFTMEAL PRN PO PAIN Last administered on 08:15; Start 10/14/16 at 16:45 Sertraline HCl (Zoloft) 50 mg DAILY PO Last administered on 10/16/16 09:07; Start 10/15/16 at 09:00; Stop 10/16/16 at 13:44; Status DC Sertraline HCl (Zoloft) 50 mg DAILY PO Last administered on 10/22/16 08:16; Start 10/17/16 at 09:00 Active Scripts Active Reported Catapres (Clonidine Hcl) 0.1 Mg Tablet 1 Tab PO PRN Q6HRS PRN Amlodipine Besylate 10 Mg Tablet 10 Mg PO DAILY Lisinopril 20 Mg Tablet 1 Tab PO BID Diagnosis: Problems: (1) Anxiety disorder (2) Impulse control disorder (3) Major depressive disorder, recurrent episode (4) Dementia, vascular, with depression (5) Dementia, vascular, with delusions KOTA MUNOZ MD Oct 22, 2016 19:47
--- NOTE | 2016-10-22 20:09 | PDOC ---
Exam Isaiah Demential Exam: Isaiah Note: Please also refer to the separate dictated note~for this date of service dictated separately.~Patient seen individually. Discussed the patient with Nursing staff reviewed the chart.~Reviewed interim history and current functioning. Reviewed vital signs,~Labs/ Radiology~and current medications noted below. Continue current treatment with the changes noted in the dictated addendum note S/O: This is a late entry for date of service 10/18/2016 and covers elements not covered in my initial note of October 18. Per nursing report, the patient remains pleasant and cooperative. Short-term memory is impaired. He is quite animated, anxious to go home, compliant. No CV, , Pulmonary, Eye, ENT system symptoms on review. Gait is somewhat unsteady. MSE: Oriented to himself. I met with him in his room. Pleasant, verbal. He had forgotten that he had supper. Insight, judgment, and recent memory are impaired. Language function is intact. Attention span is short. Mood and affect appears improved. Labs: Reviewed. Imp: Unchanged from initial note. Continue psychotropics mentioned in my initial note. Assessment: Vital Signs: Vital Signs Date Time Temp Pulse Resp B/P (MAP) Pulse Ox O2 Delivery O2 Flow Rate FiO2 10/22/16 19:59 67 151/81 10/22/16 16:06 97.6 20 95 Room Air I&O Intake and Output 10/22/16 07:00 Intake Total 1200 ml Balance 1200 ml Intake Oral 1200 ml Current Medications: Meds: Current Medications Acetaminophen (Tylenol) 650 mg PRN Q6HRS PRN PO PAIN / TEMP Last administered on 10/15/16 08:26; Start 10/07/16 at 17:30 Multi-Ingredient Ointment (Analgesic [place]) 1 kika PRN QID PRN TP MUSCLE PAIN; Start 10/07/16 at 17:30 Al Hydroxide/Mg Hydroxide (Mylanta Plus Xs) 15 ml PRN AFTMEALHC PRN PO DYSPEPSIA; Start 10/07/16 at 17:30 Magnesium Hydroxide (Milk Of Magnesia) 2,400 mg PRN QHS PRN PO CONSTIPATION; Start 10/07/16 at 17:30 Amlodipine Besylate (Norvasc) 10 mg DAILY PO Last administered on 10/22/16 08: 16; Start 10/08/16 at 09:00 Clonidine HCl (Catapres) 0.1 mg PRN Q6HRS PRN PO HYPERTENSION, SEE COMMENTS; Start 10/07/16 at 18:15 Lisinopril (Prinivil) 20 mg BID PO Last administered on 10/22/16 19:59; Start 10/07/16 at 21:00 Pneumococcal Polyvalent Vaccine (Pneumovax 23) 0.5 ml ONCE ONCE VAX IM ; Start 10/08/16 at 09:00; Stop 10/08/16 at 09:01; Status DC Olanzapine (ZyPREXA ZYDIS) 2.5 mg PRN Q4HRS PRN PO ANXIETY / AGITATION Last administered on 10/21/16 13:00; Start 10/07/16 at 23:15 Vitamin D (Vitamin D3) 2,000 unit DAILY PO Last administered on 10/22/16 08:16 ; Start 10/08/16 at 09:00 Potassium Chloride (Klor-Con) 20 meq DAILYWBKFT PO Last administered on 08:17; Start 10/08/16 at 08:00 Divalproex Sodium (Depakote Sprinkles) 125 mg DAILY PO Last administered on 08:16; Start 10/09/16 at 09:00 Divalproex Sodium (Depakote Sprinkles) 250 mg HS PO Last administered on 19:59; Start 10/08/16 at 21:00 Sertraline HCl (Zoloft) 25 mg DAILY PO Last administered on 10/14/16 08:38; Start 10/12/16 at 09:00; Stop 10/14/16 at 18:17; Status DC Trazodone HCl (Desyrel) 50 mg PRN QHS PRN PO INSOMNIA, MAY REPEAT X1 Last administered on 10/19/16 19:46; Start 10/11/16 at 10:30 Ketorolac Tromethamine (Toradol) 30 mg 1X ONCE IM Last administered on 11:37; Start 10/14/16 at 11:40; Stop 10/14/16 at 11:41; Status DC Naproxen (Naprosyn) 250 mg TIDAFTMEAL PRN PO PAIN Last administered on 08:15; Start 10/14/16 at 16:45 Sertraline HCl (Zoloft) 50 mg DAILY PO Last administered on 10/16/16 09:07; Start 10/15/16 at 09:00; Stop 10/16/16 at 13:44; Status DC Sertraline HCl (Zoloft) 50 mg DAILY PO Last administered on 10/22/16 08:16; Start 10/17/16 at 09:00 Active Scripts Active Reported Catapres (Clonidine Hcl) 0.1 Mg Tablet 1 Tab PO PRN Q6HRS PRN Amlodipine Besylate 10 Mg Tablet 10 Mg PO DAILY Lisinopril 20 Mg Tablet 1 Tab PO BID KOTA MUNOZ MD Oct 22, 2016 20:09
--- NOTE | 2016-10-22 20:42 | PDOC ---
Exam Isaiah Demential Exam: Isaiah Note: Please also refer to the separate dictated note~for this date of service dictated separately.~Patient seen individually. Discussed the patient with Nursing staff reviewed the chart.~Reviewed interim history and current functioning. Reviewed vital signs,~Labs/ Radiology~and current medications noted below. Continue current treatment with the changes noted in the dictated addendum note S/O: This is a late entry for date of service 10/19/2016 and covers the elements that are not covered in my initial note. The patient remains confused , forgetful, and has had a good day. Review of Systems: No CV, , Eye, ENT, Pulmonary system symptoms on review. Reliability, poor. Gait unsteady, in wheelchair. MSE: Pleasant, verbal, smiling, felt he is still working, confused, insight and judgment, recent memory is impaired. Language function is intact. Mood and affect is improved. Diagnosis and current treatment is as mentioned in my initial note. Assessment: Vital Signs: Vital Signs Date Time Temp Pulse Resp B/P (MAP) Pulse Ox O2 Delivery O2 Flow Rate FiO2 10/22/16 19:59 67 151/81 10/22/16 16:06 97.6 20 95 Room Air I&O Intake and Output 10/22/16 07:00 Intake Total 1200 ml Balance 1200 ml Intake Oral 1200 ml Current Medications: Meds: Current Medications Acetaminophen (Tylenol) 650 mg PRN Q6HRS PRN PO PAIN / TEMP Last administered on 10/15/16 08:26; Start 10/07/16 at 17:30 Multi-Ingredient Ointment (Analgesic [place]) 1 kika PRN QID PRN TP MUSCLE PAIN; Start 10/07/16 at 17:30 Al Hydroxide/Mg Hydroxide (Mylanta Plus Xs) 15 ml PRN AFTMEALHC PRN PO DYSPEPSIA; Start 10/07/16 at 17:30 Magnesium Hydroxide (Milk Of Magnesia) 2,400 mg PRN QHS PRN PO CONSTIPATION; Start 10/07/16 at 17:30 Amlodipine Besylate (Norvasc) 10 mg DAILY PO Last administered on 10/22/16 08: 16; Start 10/08/16 at 09:00 Clonidine HCl (Catapres) 0.1 mg PRN Q6HRS PRN PO HYPERTENSION, SEE COMMENTS; Start 10/07/16 at 18:15 Lisinopril (Prinivil) 20 mg BID PO Last administered on 10/22/16 19:59; Start 10/07/16 at 21:00 Pneumococcal Polyvalent Vaccine (Pneumovax 23) 0.5 ml ONCE ONCE VAX IM ; Start 10/08/16 at 09:00; Stop 10/08/16 at 09:01; Status DC Olanzapine (ZyPREXA ZYDIS) 2.5 mg PRN Q4HRS PRN PO ANXIETY / AGITATION Last administered on 10/21/16 13:00; Start 10/07/16 at 23:15 Vitamin D (Vitamin D3) 2,000 unit DAILY PO Last administered on 10/22/16 08:16 ; Start 10/08/16 at 09:00 Potassium Chloride (Klor-Con) 20 meq DAILYWBKFT PO Last administered on 08:17; Start 10/08/16 at 08:00 Divalproex Sodium (Depakote Sprinkles) 125 mg DAILY PO Last administered on 08:16; Start 10/09/16 at 09:00 Divalproex Sodium (Depakote Sprinkles) 250 mg HS PO Last administered on 19:59; Start 10/08/16 at 21:00 Sertraline HCl (Zoloft) 25 mg DAILY PO Last administered on 10/14/16 08:38; Start 10/12/16 at 09:00; Stop 10/14/16 at 18:17; Status DC Trazodone HCl (Desyrel) 50 mg PRN QHS PRN PO INSOMNIA, MAY REPEAT X1 Last administered on 10/19/16 19:46; Start 10/11/16 at 10:30 Ketorolac Tromethamine (Toradol) 30 mg 1X ONCE IM Last administered on 11:37; Start 10/14/16 at 11:40; Stop 10/14/16 at 11:41; Status DC Naproxen (Naprosyn) 250 mg TIDAFTMEAL PRN PO PAIN Last administered on 08:15; Start 10/14/16 at 16:45 Sertraline HCl (Zoloft) 50 mg DAILY PO Last administered on 10/16/16 09:07; Start 10/15/16 at 09:00; Stop 10/16/16 at 13:44; Status DC Sertraline HCl (Zoloft) 50 mg DAILY PO Last administered on 10/22/16 08:16; Start 10/17/16 at 09:00 Active Scripts Active Reported Catapres (Clonidine Hcl) 0.1 Mg Tablet 1 Tab PO PRN Q6HRS PRN Amlodipine Besylate 10 Mg Tablet 10 Mg PO DAILY Lisinopril 20 Mg Tablet 1 Tab PO BID KOTA MUNOZ MD Oct 22, 2016 20:42
[2016-10-23 05:49] VITALS: BP 135/75
[2016-10-23] MEDS: DIVALPROEX 125 MG CAP.SPRINK PO SCH ×2 (09:06→19:25)
[2016-10-23] MEDS: SERTRALINE 50 MG TABLET. PO SCH (09:06)
[2016-10-23] MEDS: POTASSIUM CHLORIDE 20 MEQ TABLET.ER. PO SCH (09:06)
[2016-10-23] MEDS: amLODIPine BESYLATE 10 MG TABLET PO SCH (09:06)
[2016-10-23] MEDS: LISINOPRIL 20 MG TABLET PO SCH ×2 (09:06→19:24)
[2016-10-23] MEDS: NAPROXEN 250 MG TABLET PO PRN (09:06)
[2016-10-23] MEDS: CHOLECALCIFEROL (VITAMIN D3) 1,000 UNIT TABLET PO SCH (09:06)
[2016-10-23 15:29] VITALS: BP 138/66
--- NOTE | 2016-10-23 19:59 | PDOC ---
Exam Isaiah Demential Exam: Isaiah Note: Please also refer to the separate dictated note~for this date of service dictated separately.~Patient seen individually. Discussed the patient with Nursing staff reviewed the chart.~Reviewed interim history and current functioning. Reviewed vital signs,~Labs/ Radiology~and current medications noted below. Continue current treatment with the changes noted in the dictated addendum note Assessment: Vital Signs: Vital Signs Date Time Temp Pulse Resp B/P (MAP) Pulse Ox O2 Delivery O2 Flow Rate FiO2 10/23/16 19:24 64 138/66 10/23/16 15:29 98.8 16 98 10/22/16 16:06 Room Air I&O Intake and Output 10/23/16 07:00 Intake Total 1080 ml Balance 1080 ml Intake Oral 1080 ml Current Medications: Meds: Current Medications Acetaminophen (Tylenol) 650 mg PRN Q6HRS PRN PO PAIN / TEMP Last administered on 10/15/16 08:26; Start 10/07/16 at 17:30 Multi-Ingredient Ointment (Analgesic [place]) 1 kika PRN QID PRN TP MUSCLE PAIN; Start 10/07/16 at 17:30 Al Hydroxide/Mg Hydroxide (Mylanta Plus Xs) 15 ml PRN AFTMEALHC PRN PO DYSPEPSIA; Start 10/07/16 at 17:30 Magnesium Hydroxide (Milk Of Magnesia) 2,400 mg PRN QHS PRN PO CONSTIPATION; Start 10/07/16 at 17:30 Amlodipine Besylate (Norvasc) 10 mg DAILY PO Last administered on 10/23/16 09: 06; Start 10/08/16 at 09:00 Clonidine HCl (Catapres) 0.1 mg PRN Q6HRS PRN PO HYPERTENSION, SEE COMMENTS; Start 10/07/16 at 18:15 Lisinopril (Prinivil) 20 mg BID PO Last administered on 10/23/16 19:24; Start 10/07/16 at 21:00 Pneumococcal Polyvalent Vaccine (Pneumovax 23) 0.5 ml ONCE ONCE VAX IM ; Start 10/08/16 at 09:00; Stop 10/08/16 at 09:01; Status DC Olanzapine (ZyPREXA ZYDIS) 2.5 mg PRN Q4HRS PRN PO ANXIETY / AGITATION Last administered on 10/21/16 13:00; Start 10/07/16 at 23:15 Vitamin D (Vitamin D3) 2,000 unit DAILY PO Last administered on 10/23/16 09:06 ; Start 10/08/16 at 09:00 Potassium Chloride (Klor-Con) 20 meq DAILYWBKFT PO Last administered on 09:06; Start 10/08/16 at 08:00 Divalproex Sodium (Depakote Sprinkles) 125 mg DAILY PO Last administered on 09:06; Start 10/09/16 at 09:00 Divalproex Sodium (Depakote Sprinkles) 250 mg HS PO Last administered on 19:25; Start 10/08/16 at 21:00 Sertraline HCl (Zoloft) 25 mg DAILY PO Last administered on 10/14/16 08:38; Start 10/12/16 at 09:00; Stop 10/14/16 at 18:17; Status DC Trazodone HCl (Desyrel) 50 mg PRN QHS PRN PO INSOMNIA, MAY REPEAT X1 Last administered on 10/19/16 19:46; Start 10/11/16 at 10:30 Ketorolac Tromethamine (Toradol) 30 mg 1X ONCE IM Last administered on 11:37; Start 10/14/16 at 11:40; Stop 10/14/16 at 11:41; Status DC Naproxen (Naprosyn) 250 mg TIDAFTMEAL PRN PO PAIN Last administered on 09:06; Start 10/14/16 at 16:45 Sertraline HCl (Zoloft) 50 mg DAILY PO Last administered on 10/16/16 09:07; Start 10/15/16 at 09:00; Stop 10/16/16 at 13:44; Status DC Sertraline HCl (Zoloft) 50 mg DAILY PO Last administered on 10/23/16 09:06; Start 10/17/16 at 09:00 Active Scripts Active Reported Catapres (Clonidine Hcl) 0.1 Mg Tablet 1 Tab PO PRN Q6HRS PRN Amlodipine Besylate 10 Mg Tablet 10 Mg PO DAILY Lisinopril 20 Mg Tablet 1 Tab PO BID Diagnosis: Problems: (1) Anxiety disorder (2) Impulse control disorder (3) Major depressive disorder, recurrent episode (4) Dementia, vascular, with depression (5) Dementia, vascular, with delusions KOTA MUNOZ MD Oct 23, 2016 19:59
--- NOTE | 2016-10-23 20:16 | PDOC ---
Exam Isaiah Demential Exam: Isaiah Note: Please also refer to the separate dictated note~for this date of service dictated separately.~Patient seen individually. Discussed the patient with Nursing staff reviewed the chart.~Reviewed interim history and current functioning. Reviewed vital signs,~Labs/ Radiology~and current medications noted below. Continue current treatment with the changes noted in the dictated addendum note S/O: This is a late entry for 10/20/2016. The patient is seen individually on the evening of 10/20/2016. This note covers elements not covered in my initial note. Overall, the patient has been fairly cooperative today. Memory is impaired. Review of Systems: Ambulation impaired. No CV, , Pulmonary, Eye, ENT system symptoms on review. MSE: Oriented to himself, at times to situations. Speech is coherent. Abstraction fair. Computation impaired. Language function intact. Attention span short. Mood and affect appears improved. Labs: Reviewed. Imp: Unchanged from initial note. Plan: Continue current psychotropics. Transition to lower level of care on 02/2017. This note covers elements not covered in my initial note. Assessment: Vital Signs: Vital Signs Date Time Temp Pulse Resp B/P (MAP) Pulse Ox O2 Delivery O2 Flow Rate FiO2 10/23/16 19:24 64 138/66 10/23/16 15:29 98.8 16 98 10/22/16 16:06 Room Air I&O Intake and Output 10/23/16 07:00 Intake Total 1080 ml Balance 1080 ml Intake Oral 1080 ml Current Medications: Meds: Current Medications Acetaminophen (Tylenol) 650 mg PRN Q6HRS PRN PO PAIN / TEMP Last administered on 10/15/16 08:26; Start 10/07/16 at 17:30 Multi-Ingredient Ointment (Analgesic [place]) 1 kika PRN QID PRN TP MUSCLE PAIN; Start 10/07/16 at 17:30 Al Hydroxide/Mg Hydroxide (Mylanta Plus Xs) 15 ml PRN AFTMEALHC PRN PO DYSPEPSIA; Start 10/07/16 at 17:30 Magnesium Hydroxide (Milk Of Magnesia) 2,400 mg PRN QHS PRN PO CONSTIPATION; Start 10/07/16 at 17:30 Amlodipine Besylate (Norvasc) 10 mg DAILY PO Last administered on 10/23/16 09: 06; Start 10/08/16 at 09:00 Clonidine HCl (Catapres) 0.1 mg PRN Q6HRS PRN PO HYPERTENSION, SEE COMMENTS; Start 10/07/16 at 18:15 Lisinopril (Prinivil) 20 mg BID PO Last administered on 10/23/16 19:24; Start 10/07/16 at 21:00 Pneumococcal Polyvalent Vaccine (Pneumovax 23) 0.5 ml ONCE ONCE VAX IM ; Start 10/08/16 at 09:00; Stop 10/08/16 at 09:01; Status DC Olanzapine (ZyPREXA ZYDIS) 2.5 mg PRN Q4HRS PRN PO ANXIETY / AGITATION Last administered on 10/21/16 13:00; Start 10/07/16 at 23:15 Vitamin D (Vitamin D3) 2,000 unit DAILY PO Last administered on 10/23/16 09:06 ; Start 10/08/16 at 09:00 Potassium Chloride (Klor-Con) 20 meq DAILYWBKFT PO Last administered on 09:06; Start 10/08/16 at 08:00 Divalproex Sodium (Depakote Sprinkles) 125 mg DAILY PO Last administered on 09:06; Start 10/09/16 at 09:00 Divalproex Sodium (Depakote Sprinkles) 250 mg HS PO Last administered on 19:25; Start 10/08/16 at 21:00 Sertraline HCl (Zoloft) 25 mg DAILY PO Last administered on 10/14/16 08:38; Start 10/12/16 at 09:00; Stop 10/14/16 at 18:17; Status DC Trazodone HCl (Desyrel) 50 mg PRN QHS PRN PO INSOMNIA, MAY REPEAT X1 Last administered on 10/19/16 19:46; Start 10/11/16 at 10:30 Ketorolac Tromethamine (Toradol) 30 mg 1X ONCE IM Last administered on 11:37; Start 10/14/16 at 11:40; Stop 10/14/16 at 11:41; Status DC Naproxen (Naprosyn) 250 mg TIDAFTMEAL PRN PO PAIN Last administered on 09:06; Start 10/14/16 at 16:45 Sertraline HCl (Zoloft) 50 mg DAILY PO Last administered on 10/16/16 09:07; Start 10/15/16 at 09:00; Stop 10/16/16 at 13:44; Status DC Sertraline HCl (Zoloft) 50 mg DAILY PO Last administered on 10/23/16 09:06; Start 10/17/16 at 09:00 Active Scripts Active Reported Catapres (Clonidine Hcl) 0.1 Mg Tablet 1 Tab PO PRN Q6HRS PRN Amlodipine Besylate 10 Mg Tablet 10 Mg PO DAILY Lisinopril 20 Mg Tablet 1 Tab PO BID KOTA MUNOZ MD Oct 23, 2016 20:16
--- NOTE | 2016-10-23 20:51 | PDOC ---
Exam Isaiah Demential Exam: Isaiah Note: Please also refer to the separate dictated note~for this date of service dictated separately.~Patient seen individually. Discussed the patient with Nursing staff reviewed the chart.~Reviewed interim history and current functioning. Reviewed vital signs,~Labs/ Radiology~and current medications noted below. Continue current treatment with the changes noted in the dictated addendum note S/O: This is a late entry for 10/21/2016 and covers elements not covered in my initial note. The patient was seen individually on the evening of 10/21/2016. He remains confused, but overall better and less impulsive. He is upset that the long-term facility, who was to screen him did not visit. He received Zyprexa Zydis at 1 p.m. due to increased anxiety. This note covers elements not covered in my initial note. I met with the patient on the evening of 2016 Review of Systems: Ambulation impaired. No CV, , Pulmonary, Eye system symptoms on review. MSE: Oriented to himself. Insight, judgment, and recent memory is impaired. Language function intact. Attention span short. Mood and affect are improved. Labs: Reviewed. Imp: Unchanged. Plan: Continue current psychotropics. Transition to long-term as soon as social service staff arrange it. Assessment: Vital Signs: Vital Signs Date Time Temp Pulse Resp B/P (MAP) Pulse Ox O2 Delivery O2 Flow Rate FiO2 10/23/16 19:24 64 138/66 10/23/16 15:29 98.8 16 98 10/22/16 16:06 Room Air I&O Intake and Output 10/23/16 07:00 Intake Total 1080 ml Balance 1080 ml Intake Oral 1080 ml Current Medications: Meds: Current Medications Acetaminophen (Tylenol) 650 mg PRN Q6HRS PRN PO PAIN / TEMP Last administered on 10/15/16t 08:26; Start 10/07/16 at 17:30 Multi-Ingredient Ointment (Analgesic [place]) 1 kika PRN QID PRN TP MUSCLE PAIN; Start 10/07/16 at 17:30 Al Hydroxide/Mg Hydroxide (Mylanta Plus Xs) 15 ml PRN AFTMEALHC PRN PO DYSPEPSIA; Start 10/07/16 at 17:30 Magnesium Hydroxide (Milk Of Magnesia) 2,400 mg PRN QHS PRN PO CONSTIPATION; Start 10/07/16 at 17:30 Amlodipine Besylate (Norvasc) 10 mg DAILY PO Last administered on 10/23/16 09: 06; Start 10/08/16 at 09:00 Clonidine HCl (Catapres) 0.1 mg PRN Q6HRS PRN PO HYPERTENSION, SEE COMMENTS; Start 10/07/16 at 18:15 Lisinopril (Prinivil) 20 mg BID PO Last administered on 10/23/16 19:24; Start 10/07/16 at 21:00 Pneumococcal Polyvalent Vaccine (Pneumovax 23) 0.5 ml ONCE ONCE VAX IM ; Start 10/08/16 at 09:00; Stop 10/08/16 at 09:01; Status DC Olanzapine (ZyPREXA ZYDIS) 2.5 mg PRN Q4HRS PRN PO ANXIETY / AGITATION Last administered on 10/21/16 13:00; Start 10/07/16 at 23:15 Vitamin D (Vitamin D3) 2,000 unit DAILY PO Last administered on 10/23/16 09:06 ; Start 10/08/16 at 09:00 Potassium Chloride (Klor-Con) 20 meq DAILYWBKFT PO Last administered on 09:06; Start 10/08/16 at 08:00 Divalproex Sodium (Depakote Sprinkles) 125 mg DAILY PO Last administered on 09:06; Start 10/09/16 at 09:00 Divalproex Sodium (Depakote Sprinkles) 250 mg HS PO Last administered on 19:25; Start 10/08/16 at 21:00 Sertraline HCl (Zoloft) 25 mg DAILY PO Last administered on 10/14/16 08:38; Start 10/12/16 at 09:00; Stop 10/14/16 at 18:17; Status DC Trazodone HCl (Desyrel) 50 mg PRN QHS PRN PO INSOMNIA, MAY REPEAT X1 Last administered on 10/19/16 19:46; Start 10/11/16 at 10:30 Ketorolac Tromethamine (Toradol) 30 mg 1X ONCE IM Last administered on 11:37; Start 10/14/16 at 11:40; Stop 10/14/16 at 11:41; Status DC Naproxen (Naprosyn) 250 mg TIDAFTMEAL PRN PO PAIN Last administered on 09:06; Start 10/14/16 at 16:45 Sertraline HCl (Zoloft) 50 mg DAILY PO Last administered on 10/16/16 09:07; Start 10/15/16 at 09:00; Stop 10/16/16 at 13:44; Status DC Sertraline HCl (Zoloft) 50 mg DAILY PO Last administered on 10/23/16 09:06; Start 10/17/16 at 09:00 Active Scripts Active Reported Catapres (Clonidine Hcl) 0.1 Mg Tablet 1 Tab PO PRN Q6HRS PRN Amlodipine Besylate 10 Mg Tablet 10 Mg PO DAILY Lisinopril 20 Mg Tablet 1 Tab PO BID KOTA MUNOZ MD Oct 23, 2016 20:51
[2016-10-24 06:11] VITALS: BP 146/74
[2016-10-24 06:20] LABS: BASO # 0.1 x10^3/uL (0.0-0.2); BASO % 1 % (0-3); EOS # 1.6 x10^3/uL (0.0-0.7); EOS % 17 % (0-3); HEMATOCRIT 34.4 % (39.0-53.0); HEMOGLOBIN 11.7 g/dL (13.0-17.5); LYMPH # 0.9 x10^3/uL (1.0-4.8); LYMPH % 10 % (24-48); MEAN CORPUSCULAR HEMOGLOBIN 31 pg (25-35); MEAN CORPUSCULAR HGB CONC 34 g/dL (31-37); MEAN CORPUSCULAR VOLUME 91 fL (79-100); MONO % 11 % (0-9); NEUT % 62 % (31-73); PLATELET COUNT 215 x10^3/uL (140-400); RED BLOOD COUNT 3.77 x10^6/uL (4.30-5.70); WHITE BLOOD COUNT 9.5 x10^3/uL (4.0-11.0)
[2016-10-24 06:24] LABS: ALBUMIN 3.2 g/dL (3.4-5.0); ALBUMIN/GLOBULIN RATIO 1.1 (1.0-1.7); ALK PHOS 126 U/L (46-116); ALT (SGPT) 32 U/L (16-63); ANION GAP 7 (6-14); AST (SGOT) 20 U/L (15-37); BLOOD UREA NITROGEN 27 mg/dL (8-26); BUN/CREATININE RATIO 27 (6-20); CALCIUM 8.2 mg/dL (8.5-10.1); CARBON DIOXIDE 30 mmol/L (21-32); CHLORIDE 110 mmol/L (98-107); GFR 71.2; GLUCOSE 88 mg/dL (70-99); MAGNESIUM 2.1 mg/dL (1.8-2.4); SODIUM 147 mmol/L (136-145); TOTAL BILIRUBIN 0.6 mg/dL (0.2-1.0); TOTAL PROTEIN 6.2 g/dL (6.4-8.2)
[2016-10-24 06:32] LABS: VAL ACID 39 mcg/mL (50-100)
[2016-10-24] MEDS ORDERED: FLUTICASONE 50MCG/NASAL SPRAY 16GM BOTTLE. NS PRN (07:45)
[2016-10-24] MEDS: CHOLECALCIFEROL (VITAMIN D3) 1,000 UNIT TABLET PO SCH (09:14)
[2016-10-24] MEDS: SERTRALINE 50 MG TABLET. PO SCH (09:14)
[2016-10-24] MEDS: NAPROXEN 250 MG TABLET PO PRN (09:14)
[2016-10-24] MEDS: DIVALPROEX 125 MG CAP.SPRINK PO SCH ×2 (09:15→20:32)
[2016-10-24] MEDS: amLODIPine BESYLATE 10 MG TABLET PO SCH (09:15)
[2016-10-24] MEDS: POTASSIUM CHLORIDE 20 MEQ TABLET.ER. PO SCH (09:15)
[2016-10-24] MEDS: LISINOPRIL 20 MG TABLET PO SCH ×2 (09:15→20:32)
[2016-10-24 16:30] VITALS: BP 136/77
--- NOTE | 2016-10-24 20:01 | PDOC ---
Exam Isaiah Demential Exam: Isaiah Note: Please also refer to the separate dictated note~for this date of service dictated separately.~Patient seen individually. Discussed the patient with Nursing staff reviewed the chart.~Reviewed interim history and current functioning. Reviewed vital signs,~Labs/ Radiology~and current medications noted below. Continue current treatment with the changes noted in the dictated addendum note Assessment: Vital Signs: Vital Signs Date Time Temp Pulse Resp B/P (MAP) Pulse Ox O2 Delivery O2 Flow Rate FiO2 10/24/16 16:30 97.9 71 18 136/77 (96) 99 10/22/16 16:06 Room Air I&O Intake and Output 10/24/16 07:00 Intake Total 1200 ml Balance 1200 ml Intake Oral 1200 ml # Voids 1 # Bowel Movements 1 Labs: Laboratory Tests Test 10/24/16 05:42 White Blood Count 9.5 x10^3/uL (4.0-11.0) Red Blood Count 3.77 x10^6/uL (4.30-5.70) L Hemoglobin 11.7 g/dL (13.0-17.5) L Hematocrit 34.4 % (39.0-53.0) L Mean Corpuscular Volume 91 fL (79-100) Mean Corpuscular Hemoglobin 31 pg (25-35) Mean Corpuscular Hemoglobin Concent 34 g/dL (31-37) Red Cell Distribution Width 14.0 % (11.5-14.5) Platelet Count 215 x10^3/uL (140-400) Neutrophils (%) (Auto) 62 % (31-73) Lymphocytes (%) (Auto) 10 % (24-48) L Monocytes (%) (Auto) 11 % (0-9) H Eosinophils (%) (Auto) 17 % (0-3) H Basophils (%) (Auto) 1 % (0-3) Neutrophils # (Auto) 6.0 x10^3uL (1.8-7.7) Lymphocytes # (Auto) 0.9 x10^3/uL (1.0-4.8) L Monocytes # (Auto) 1.0 x10^3/uL (0.0-1.1) Eosinophils # (Auto) 1.6 x10^3/uL (0.0-0.7) H Basophils # (Auto) 0.1 x10^3/uL (0.0-0.2) Sodium Level 147 mmol/L (136-145) H Potassium Level 4.0 mmol/L (3.5-5.1) Chloride Level 110 mmol/L (98-107) H Carbon Dioxide Level 30 mmol/L (21-32) Anion Gap 7 (6-14) Blood Urea Nitrogen 27 mg/dL (8-26) H Creatinine 1.0 mg/dL (0.7-1.3) Estimated GFR (Cockcroft-Gault) 71.2 BUN/Creatinine Ratio 27 (6-20) H Glucose Level 88 mg/dL (70-99) Calcium Level 8.2 mg/dL (8.5-10.1) L Magnesium Level 2.1 mg/dL (1.8-2.4) Total Bilirubin 0.6 mg/dL (0.2-1.0) Aspartate Amino Transferase (AST) 20 U/L (15-37) Alanine Aminotransferase (ALT) 32 U/L (16-63) Alkaline Phosphatase 126 U/L (46-116) H Total Protein 6.2 g/dL (6.4-8.2) L Albumin 3.2 g/dL (3.4-5.0) L Albumin/Globulin Ratio 1.1 (1.0-1.7) Valproic Acid Level 39 mcg/mL (50-100) L Valproic Acid Last Dose Date 10/23/2016 Valproic Acid Last Dose Time 2100 Current Medications: Meds: Current Medications Acetaminophen (Tylenol) 650 mg PRN Q6HRS PRN PO PAIN / TEMP Last administered on 10/15/16 08:26; Start 10/07/16 at 17:30 Multi-Ingredient Ointment (Analgesic [place]) 1 kika PRN QID PRN TP MUSCLE PAIN; Start 10/07/16 at 17:30 Al Hydroxide/Mg Hydroxide (Mylanta Plus Xs) 15 ml PRN AFTMEALHC PRN PO DYSPEPSIA; Start 10/07/16 at 17:30 Magnesium Hydroxide (Milk Of Magnesia) 2,400 mg PRN QHS PRN PO CONSTIPATION; Start 10/07/16 at 17:30 Amlodipine Besylate (Norvasc) 10 mg DAILY PO Last administered on 10/24/16 09: 15; Start 10/08/16 at 09:00 Clonidine HCl (Catapres) 0.1 mg PRN Q6HRS PRN PO HYPERTENSION, SEE COMMENTS; Start 10/07/16 at 18:15 Lisinopril (Prinivil) 20 mg BID PO Last administered on 10/24/16 09:15; Start 10/07/16 at 21:00 Pneumococcal Polyvalent Vaccine (Pneumovax 23) 0.5 ml ONCE ONCE VAX IM ; Start 10/08/16 at 09:00; Stop 10/08/16 at 09:01; Status DC Olanzapine (ZyPREXA ZYDIS) 2.5 mg PRN Q4HRS PRN PO ANXIETY / AGITATION Last administered on 10/21/16 13:00; Start 10/07/16 at 23:15 Vitamin D (Vitamin D3) 2,000 unit DAILY PO Last administered on 10/24/16 09:14 ; Start 10/08/16 at 09:00 Potassium Chloride (Klor-Con) 20 meq DAILYWBKFT PO Last administered on 09:15; Start 10/08/16 at 08:00 Divalproex Sodium (Depakote Sprinkles) 125 mg DAILY PO Last administered on 09:15; Start 10/09/16 at 09:00 Divalproex Sodium (Depakote Sprinkles) 250 mg HS PO Last administered on 19:25; Start 10/08/16 at 21:00 Sertraline HCl (Zoloft) 25 mg DAILY PO Last administered on 10/14/16 08:38; Start 10/12/16 at 09:00; Stop 10/14/16 at 18:17; Status DC Trazodone HCl (Desyrel) 50 mg PRN QHS PRN PO INSOMNIA, MAY REPEAT X1 Last administered on 10/19/16 19:46; Start 10/11/16 at 10:30 Ketorolac Tromethamine (Toradol) 30 mg 1X ONCE IM Last administered on 11:37; Start 10/14/16 at 11:40; Stop 10/14/16 at 11:41; Status DC Naproxen (Naprosyn) 250 mg TIDAFTMEAL PRN PO PAIN Last administered on 09:14; Start 10/14/16 at 16:45 Sertraline HCl (Zoloft) 50 mg DAILY PO Last administered on 10/16/16 09:07; Start 10/15/16 at 09:00; Stop 10/16/16 at 13:44; Status DC Sertraline HCl (Zoloft) 50 mg DAILY PO Last administered on 10/24/16 09:14; Start 10/17/16 at 09:00 Fluticasone Propionate (Flonase) 2 spray PRN DAILY PRN NS ALLERGIES; Start at 07:45 Active Scripts Active Reported Catapres (Clonidine Hcl) 0.1 Mg Tablet 1 Tab PO PRN Q6HRS PRN Amlodipine Besylate 10 Mg Tablet 10 Mg PO DAILY Lisinopril 20 Mg Tablet 1 Tab PO BID Diagnosis: Problems: (1) Anxiety disorder (2) Impulse control disorder (3) Major depressive disorder, recurrent episode (4) Dementia, vascular, with depression (5) Dementia, vascular, with delusions KOTA MUNOZ MD Oct 24, 2016 20:01
--- NOTE | 2016-10-24 20:32 | PDOC ---
Exam Isaiah Demential Exam: Isaiah Note: Please also refer to the separate dictated note~for this date of service dictated separately.~Patient seen individually. Discussed the patient with Nursing staff reviewed the chart.~Reviewed interim history and current functioning. Reviewed vital signs,~Labs/ Radiology~and current medications noted below. Continue current treatment with the changes noted in the dictated addendum note S/O: This is a late entry for October 22 covers elements not covered in my initial note. The patient was seen individually in the evening of October 22. He remains confused, forgetful; otherwise, pleasant, cooperative, and not aggressive. Review of systems: Ambulation impaired, in wheelchair. No CV, , Pulmonary, Eye, ENT system symptoms on review. MSE: Oriented to himself and situation. Insight, judgment, and recent memory are impaired. Language function intact. Mood and affect showing improvement. Labs: Reviewed. Impression: Unchanged from initial note. Plan: Continue current psychotropics as mentioned in my initial note. Assessment: Vital Signs: Vital Signs Date Time Temp Pulse Resp B/P (MAP) Pulse Ox O2 Delivery O2 Flow Rate FiO2 10/24/16 16:30 97.9 71 18 136/77 (96) 99 10/22/16 16:06 Room Air I&O Intake and Output 10/24/16 07:00 Intake Total 1200 ml Balance 1200 ml Intake Oral 1200 ml # Voids 1 # Bowel Movements 1 Labs: Laboratory Tests Test 10/24/16 05:42 White Blood Count 9.5 x10^3/uL (4.0-11.0) Red Blood Count 3.77 x10^6/uL (4.30-5.70) L Hemoglobin 11.7 g/dL (13.0-17.5) L Hematocrit 34.4 % (39.0-53.0) L Mean Corpuscular Volume 91 fL (79-100) Mean Corpuscular Hemoglobin 31 pg (25-35) Mean Corpuscular Hemoglobin Concent 34 g/dL (31-37) Red Cell Distribution Width 14.0 % (11.5-14.5) Platelet Count 215 x10^3/uL (140-400) Neutrophils (%) (Auto) 62 % (31-73) Lymphocytes (%) (Auto) 10 % (24-48) L Monocytes (%) (Auto) 11 % (0-9) H Eosinophils (%) (Auto) 17 % (0-3) H Basophils (%) (Auto) 1 % (0-3) Neutrophils # (Auto) 6.0 x10^3uL (1.8-7.7) Lymphocytes # (Auto) 0.9 x10^3/uL (1.0-4.8) L Monocytes # (Auto) 1.0 x10^3/uL (0.0-1.1) Eosinophils # (Auto) 1.6 x10^3/uL (0.0-0.7) H Basophils # (Auto) 0.1 x10^3/uL (0.0-0.2) Sodium Level 147 mmol/L (136-145) H Potassium Level 4.0 mmol/L (3.5-5.1) Chloride Level 110 mmol/L (98-107) H Carbon Dioxide Level 30 mmol/L (21-32) Anion Gap 7 (6-14) Blood Urea Nitrogen 27 mg/dL (8-26) H Creatinine 1.0 mg/dL (0.7-1.3) Estimated GFR (Cockcroft-Gault) 71.2 BUN/Creatinine Ratio 27 (6-20) H Glucose Level 88 mg/dL (70-99) Calcium Level 8.2 mg/dL (8.5-10.1) L Magnesium Level 2.1 mg/dL (1.8-2.4) Total Bilirubin 0.6 mg/dL (0.2-1.0) Aspartate Amino Transferase (AST) 20 U/L (15-37) Alanine Aminotransferase (ALT) 32 U/L (16-63) Alkaline Phosphatase 126 U/L (46-116) H Total Protein 6.2 g/dL (6.4-8.2) L Albumin 3.2 g/dL (3.4-5.0) L Albumin/Globulin Ratio 1.1 (1.0-1.7) Valproic Acid Level 39 mcg/mL (50-100) L Valproic Acid Last Dose Date 10/23/2016 Valproic Acid Last Dose Time 2100 Current Medications: Meds: Current Medications Acetaminophen (Tylenol) 650 mg PRN Q6HRS PRN PO PAIN / TEMP Last administered on 10/15/16t 08:26; Start 10/07/16 at 17:30 Multi-Ingredient Ointment (Analgesic [place]) 1 kika PRN QID PRN TP MUSCLE PAIN; Start 10/07/16 at 17:30 Al Hydroxide/Mg Hydroxide (Mylanta Plus Xs) 15 ml PRN AFTMEALHC PRN PO DYSPEPSIA; Start 10/07/16 at 17:30 Magnesium Hydroxide (Milk Of Magnesia) 2,400 mg PRN QHS PRN PO CONSTIPATION; Start 10/07/16 at 17:30 Amlodipine Besylate (Norvasc) 10 mg DAILY PO Last administered on 10/24/16 09: 15; Start 10/08/16 at 09:00 Clonidine HCl (Catapres) 0.1 mg PRN Q6HRS PRN PO HYPERTENSION, SEE COMMENTS; Start 10/07/16 at 18:15 Lisinopril (Prinivil) 20 mg BID PO Last administered on 10/24/16 09:15; Start 10/07/16 at 21:00 Pneumococcal Polyvalent Vaccine (Pneumovax 23) 0.5 ml ONCE ONCE VAX IM ; Start 10/08/16 at 09:00; Stop 10/08/16 at 09:01; Status DC Olanzapine (ZyPREXA ZYDIS) 2.5 mg PRN Q4HRS PRN PO ANXIETY / AGITATION Last administered on 10/21/16 13:00; Start 10/07/16 at 23:15 Vitamin D (Vitamin D3) 2,000 unit DAILY PO Last administered on 10/24/16 09:14 ; Start 10/08/16 at 09:00 Potassium Chloride (Klor-Con) 20 meq DAILYWBKFT PO Last administered on 09:15; Start 10/08/16 at 08:00 Divalproex Sodium (Depakote Sprinkles) 125 mg DAILY PO Last administered on 09:15; Start 10/09/16 at 09:00 Divalproex Sodium (Depakote Sprinkles) 250 mg HS PO Last administered on 19:25; Start 10/08/16 at 21:00 Sertraline HCl (Zoloft) 25 mg DAILY PO Last administered on 10/14/16 08:38; Start 10/12/16 at 09:00; Stop 10/14/16 at 18:17; Status DC Trazodone HCl (Desyrel) 50 mg PRN QHS PRN PO INSOMNIA, MAY REPEAT X1 Last administered on 10/19/16 19:46; Start 10/11/16 at 10:30 Ketorolac Tromethamine (Toradol) 30 mg 1X ONCE IM Last administered on 11:37; Start 10/14/16 at 11:40; Stop 10/14/16 at 11:41; Status DC Naproxen (Naprosyn) 250 mg TIDAFTMEAL PRN PO PAIN Last administered on 09:14; Start 10/14/16 at 16:45 Sertraline HCl (Zoloft) 50 mg DAILY PO Last administered on 10/16/16 09:07; Start 10/15/16 at 09:00; Stop 10/16/16 at 13:44; Status DC Sertraline HCl (Zoloft) 50 mg DAILY PO Last administered on 10/24/16 09:14; Start 10/17/16 at 09:00 Fluticasone Propionate (Flonase) 2 spray PRN DAILY PRN NS ALLERGIES; Start at 07:45 Active Scripts Active Reported Catapres (Clonidine Hcl) 0.1 Mg Tablet 1 Tab PO PRN Q6HRS PRN Amlodipine Besylate 10 Mg Tablet 10 Mg PO DAILY Lisinopril 20 Mg Tablet 1 Tab PO BID KOTA MUNOZ MD Oct 24, 2016 20:32
[2016-10-25 06:02] VITALS: BP 145/91
[2016-10-25] MEDS: DIVALPROEX 125 MG CAP.SPRINK PO SCH ×2 (08:06→19:54)
[2016-10-25] MEDS: POTASSIUM CHLORIDE 20 MEQ TABLET.ER. PO SCH (08:06)
[2016-10-25] MEDS: CHOLECALCIFEROL (VITAMIN D3) 1,000 UNIT TABLET PO SCH (08:07)
[2016-10-25] MEDS: SERTRALINE 50 MG TABLET. PO SCH (08:07)
[2016-10-25] MEDS: amLODIPine BESYLATE 10 MG TABLET PO SCH (08:07)
[2016-10-25] MEDS: LISINOPRIL 20 MG TABLET PO SCH ×2 (08:08→19:56)
[2016-10-25 16:07] VITALS: BP 146/75
--- NOTE | 2016-10-25 19:02 | PDOC ---
Exam Isaiah Demential Exam: Isaiah Note: .~Patient seen individually. Discussed the patient with Nursing staff reviewed the chart.~Reviewed interim history and current functioning. Reviewed vital signs,~Labs/ Radiology~and current medications noted below. Continue current treatment with the changes noted in the dictated addendum note Patient seen individually the evening of 10/25. Per nursing report patient remains somewhat forgetful for short-term memory but otherwise fairly cooperative on the unit. He is being pleasant and verbal aware that basement is being sought for him. Review of systems: Patient denied any CV GI pulmonary I ENT system symptoms on review. Mental status examination: Patient is oriented to himself and situation. He is quite pleasant as I met with him, short-term memory is impaired. Insight somewhat limited judgment marginal language function intact mood appears improved affect is stable and mood congruent. No clear psychotic symptoms suicidal or homicidal ideation Plan: Continue psychotropics mentioned below. Possible transition to a lower level of care early next week Assessment: Vital Signs: Vital Signs Date Time Temp Pulse Resp B/P (MAP) Pulse Ox O2 Delivery O2 Flow Rate FiO2 10/25/16 16:07 98.6 59 20 146/75 (98) 100 Room Air I&O Intake and Output 10/25/16 07:00 Intake Total 1080 ml Balance 1080 ml Intake Oral 1080 ml # Voids 1 Current Medications: Meds: Current Medications Acetaminophen (Tylenol) 650 mg PRN Q6HRS PRN PO PAIN / TEMP Last administered on 10/15/16 08:26; Start 10/07/16 at 17:30 Multi-Ingredient Ointment (Analgesic [place]) 1 kika PRN QID PRN TP MUSCLE PAIN; Start 10/07/16 at 17:30 Al Hydroxide/Mg Hydroxide (Mylanta Plus Xs) 15 ml PRN AFTMEALHC PRN PO DYSPEPSIA; Start 10/07/16 at 17:30 Magnesium Hydroxide (Milk Of Magnesia) 2,400 mg PRN QHS PRN PO CONSTIPATION; Start 10/07/16 at 17:30 Amlodipine Besylate (Norvasc) 10 mg DAILY PO Last administered on 10/25/16 08: 07; Start 10/08/16 at 09:00 Clonidine HCl (Catapres) 0.1 mg PRN Q6HRS PRN PO HYPERTENSION, SEE COMMENTS; Start 10/07/16 at 18:15 Lisinopril (Prinivil) 20 mg BID PO Last administered on 10/25/16 08:08; Start 10/07/16 at 21:00 Pneumococcal Polyvalent Vaccine (Pneumovax 23) 0.5 ml ONCE ONCE VAX IM ; Start 10/08/16 at 09:00; Stop 10/08/16 at 09:01; Status DC Olanzapine (ZyPREXA ZYDIS) 2.5 mg PRN Q4HRS PRN PO ANXIETY / AGITATION Last administered on 10/21/16 13:00; Start 10/07/16 at 23:15 Vitamin D (Vitamin D3) 2,000 unit DAILY PO Last administered on 10/25/16 08:07 ; Start 10/08/16 at 09:00 Potassium Chloride (Klor-Con) 20 meq DAILYWBKFT PO Last administered on 08:06; Start 10/08/16 at 08:00 Divalproex Sodium (Depakote Sprinkles) 125 mg DAILY PO Last administered on 08:06; Start 10/09/16 at 09:00 Divalproex Sodium (Depakote Sprinkles) 250 mg HS PO Last administered on 20:32; Start 10/08/16 at 21:00 Sertraline HCl (Zoloft) 25 mg DAILY PO Last administered on 10/14/16 08:38; Start 10/12/16 at 09:00; Stop 10/14/16 at 18:17; Status DC Trazodone HCl (Desyrel) 50 mg PRN QHS PRN PO INSOMNIA, MAY REPEAT X1 Last administered on 10/19/16 19:46; Start 10/11/16 at 10:30 Ketorolac Tromethamine (Toradol) 30 mg 1X ONCE IM Last administered on 11:37; Start 10/14/16 at 11:40; Stop 10/14/16 at 11:41; Status DC Naproxen (Naprosyn) 250 mg TIDAFTMEAL PRN PO PAIN Last administered on 09:14; Start 10/14/16 at 16:45 Sertraline HCl (Zoloft) 50 mg DAILY PO Last administered on 10/16/16 09:07; Start 10/15/16 at 09:00; Stop 10/16/16 at 13:44; Status DC Sertraline HCl (Zoloft) 50 mg DAILY PO Last administered on 10/25/16 08:07; Start 10/17/16 at 09:00 Fluticasone Propionate (Flonase) 2 spray PRN DAILY PRN NS ALLERGIES; Start at 07:45 Active Scripts Active Reported Catapres (Clonidine Hcl) 0.1 Mg Tablet 1 Tab PO PRN Q6HRS PRN Amlodipine Besylate 10 Mg Tablet 10 Mg PO DAILY Lisinopril 20 Mg Tablet 1 Tab PO BID Diagnosis: Problems: (1) Dementia, vascular, with delusions (2) Dementia, vascular, with depression (3) Major depressive disorder, recurrent episode (4) Impulse control disorder (5) Anxiety disorder KOTA MUNOZ MD Oct 25, 2016 19:02
[2016-10-26 06:36] VITALS: BP 149/78
[2016-10-26] MEDS: CHOLECALCIFEROL (VITAMIN D3) 1,000 UNIT TABLET PO SCH (07:46)
[2016-10-26] MEDS: LISINOPRIL 20 MG TABLET PO SCH ×2 (07:46→19:49)
[2016-10-26] MEDS: SERTRALINE 50 MG TABLET. PO SCH (07:47)
[2016-10-26] MEDS: DIVALPROEX 125 MG CAP.SPRINK PO SCH ×2 (07:47→19:48)
[2016-10-26] MEDS: amLODIPine BESYLATE 10 MG TABLET PO SCH (07:47)
[2016-10-26] MEDS: POTASSIUM CHLORIDE 20 MEQ TABLET.ER. PO SCH (07:47)
[2016-10-26 15:55] VITALS: BP 130/72
--- NOTE | 2016-10-26 19:59 | PDOC ---
Exam Isaiah Demential Exam: Isaiah Note: Please also refer to the separate dictated note~for this date of service dictated separately.~Patient seen individually. Discussed the patient with Nursing staff reviewed the chart.~Reviewed interim history and current functioning. Reviewed vital signs,~Labs/ Radiology~and current medications noted below. Continue current treatment with the changes noted in the dictated addendum note Assessment: Vital Signs: Vital Signs Date Time Temp Pulse Resp B/P (MAP) Pulse Ox O2 Delivery O2 Flow Rate FiO2 10/26/16 19:49 56 130/72 10/26/16 15:55 98.8 18 98 10/25/16 16:07 Room Air I&O Intake and Output 10/26/16 07:00 Intake Total 1260 ml Balance 1260 ml Intake Oral 1260 ml # Voids 1 Current Medications: Meds: Current Medications Acetaminophen (Tylenol) 650 mg PRN Q6HRS PRN PO PAIN / TEMP Last administered on 10/15/16 08:26; Start 10/07/16 at 17:30 Multi-Ingredient Ointment (Analgesic [place]) 1 kika PRN QID PRN TP MUSCLE PAIN; Start 10/07/16 at 17:30 Al Hydroxide/Mg Hydroxide (Mylanta Plus Xs) 15 ml PRN AFTMEALHC PRN PO DYSPEPSIA; Start 10/07/16 at 17:30 Magnesium Hydroxide (Milk Of Magnesia) 2,400 mg PRN QHS PRN PO CONSTIPATION; Start 10/07/16 at 17:30 Amlodipine Besylate (Norvasc) 10 mg DAILY PO Last administered on 10/26/16 07: 47; Start 10/08/16 at 09:00 Clonidine HCl (Catapres) 0.1 mg PRN Q6HRS PRN PO HYPERTENSION, SEE COMMENTS; Start 10/07/16 at 18:15 Lisinopril (Prinivil) 20 mg BID PO Last administered on 10/26/16 07:46; Start 10/07/16 at 21:00 Pneumococcal Polyvalent Vaccine (Pneumovax 23) 0.5 ml ONCE ONCE VAX IM ; Start 10/08/16 at 09:00; Stop 10/08/16 at 09:01; Status DC Olanzapine (ZyPREXA ZYDIS) 2.5 mg PRN Q4HRS PRN PO ANXIETY / AGITATION Last administered on 10/21/16 13:00; Start 10/07/16 at 23:15 Vitamin D (Vitamin D3) 2,000 unit DAILY PO Last administered on 10/26/16 07:46 ; Start 10/08/16 at 09:00 Potassium Chloride (Klor-Con) 20 meq DAILYWBKFT PO Last administered on 07:47; Start 10/08/16 at 08:00 Divalproex Sodium (Depakote Sprinkles) 125 mg DAILY PO Last administered on 07:47; Start 10/09/16 at 09:00 Divalproex Sodium (Depakote Sprinkles) 250 mg HS PO Last administered on 19:48; Start 10/08/16 at 21:00 Sertraline HCl (Zoloft) 25 mg DAILY PO Last administered on 10/14/16 08:38; Start 10/12/16 at 09:00; Stop 10/14/16 at 18:17; Status DC Trazodone HCl (Desyrel) 50 mg PRN QHS PRN PO INSOMNIA, MAY REPEAT X1 Last administered on 10/19/16 19:46; Start 10/11/16 at 10:30 Ketorolac Tromethamine (Toradol) 30 mg 1X ONCE IM Last administered on 11:37; Start 10/14/16 at 11:40; Stop 10/14/16 at 11:41; Status DC Naproxen (Naprosyn) 250 mg TIDAFTMEAL PRN PO PAIN Last administered on 09:14; Start 10/14/16 at 16:45 Sertraline HCl (Zoloft) 50 mg DAILY PO Last administered on 10/16/16 09:07; Start 10/15/16 at 09:00; Stop 10/16/16 at 13:44; Status DC Sertraline HCl (Zoloft) 50 mg DAILY PO Last administered on 10/26/16 07:47; Start 10/17/16 at 09:00 Fluticasone Propionate (Flonase) 2 spray PRN DAILY PRN NS ALLERGIES; Start at 07:45 Active Scripts Active Reported Catapres (Clonidine Hcl) 0.1 Mg Tablet 1 Tab PO PRN Q6HRS PRN Amlodipine Besylate 10 Mg Tablet 10 Mg PO DAILY Lisinopril 20 Mg Tablet 1 Tab PO BID Diagnosis: Problems: (1) Anxiety disorder (2) Impulse control disorder (3) Major depressive disorder, recurrent episode (4) Dementia, vascular, with depression (5) Dementia, vascular, with delusions KOTA MUNOZ MD Oct 26, 2016 19:59
[2016-10-27 06:06] VITALS: BP 138/80
[2016-10-27] MEDS: CHOLECALCIFEROL (VITAMIN D3) 1,000 UNIT TABLET PO SCH (08:54)
[2016-10-27] MEDS: NAPROXEN 250 MG TABLET PO PRN (08:54)
[2016-10-27] MEDS: POTASSIUM CHLORIDE 20 MEQ TABLET.ER. PO SCH (08:54)
[2016-10-27] MEDS: SERTRALINE 50 MG TABLET. PO SCH (08:54)
[2016-10-27] MEDS: DIVALPROEX 125 MG CAP.SPRINK PO SCH ×2 (08:54→20:13)
[2016-10-27] MEDS: LISINOPRIL 20 MG TABLET PO SCH ×2 (08:55→20:13)
[2016-10-27] MEDS: amLODIPine BESYLATE 10 MG TABLET PO SCH (08:56)
[2016-10-27 15:28] VITALS: BP 132/78
[2016-10-27] MEDS ORDERED: ACET325T9 PO (17:21)
[2016-10-27] MEDS ORDERED: CHOL10003 PO (17:22)
[2016-10-27] MEDS ORDERED: DIVA125C PO ×2 (17:23→17:24)
[2016-10-27] MEDS ORDERED: FLUT9.9S NS (17:25)
[2016-10-27] MEDS ORDERED: MAGN2400 PO (17:27)
[2016-10-27] MEDS ORDERED: MAG360OR3 PO (17:27)
[2016-10-27] MEDS ORDERED: NAPR250T2 PO (17:29)
[2016-10-27] MEDS ORDERED: METH29OI TP (17:29)
[2016-10-27] MEDS ORDERED: OLAN2.5T3 PO (17:30)
[2016-10-27] MEDS ORDERED: OLAN5TAB9 PO (17:30)
[2016-10-27] MEDS ORDERED: POTA20TA4 PO (17:31)
[2016-10-27] MEDS ORDERED: SERT50TA PO (17:32)
[2016-10-27] MEDS ORDERED: TRAZ50TA15 PO (17:32)
--- NOTE | 2016-10-27 19:56 | PDOC ---
Exam Isaiah Demential Exam: Isaiah Note: Please also refer to the separate dictated note~for this date of service dictated separately.~Patient seen individually. Discussed the patient with Nursing staff reviewed the chart.~Reviewed interim history and current functioning. Reviewed vital signs,~Labs/ Radiology~and current medications noted below. Continue current treatment with the changes noted in the dictated addendum note Assessment: Vital Signs: Vital Signs Date Time Temp Pulse Resp B/P (MAP) Pulse Ox O2 Delivery O2 Flow Rate FiO2 10/27/16 15:28 98.3 85 18 132/78 (96) 96 Room Air I&O Intake and Output 10/27/16 07:00 Intake Total 1200 ml Balance 1200 ml Intake Oral 1200 ml # Bowel Movements 1 Current Medications: Meds: Current Medications Acetaminophen (Tylenol) 650 mg PRN Q6HRS PRN PO PAIN / TEMP Last administered on 10/15/16 08:26; Start 10/07/16 at 17:30 Multi-Ingredient Ointment (Analgesic [place]) 1 paco PRN QID PRN TP MUSCLE PAIN; Start 10/07/16 at 17:30 Al Hydroxide/Mg Hydroxide (Mylanta Plus Xs) 15 ml PRN AFTMEALHC PRN PO DYSPEPSIA; Start 10/07/16 at 17:30 Magnesium Hydroxide (Milk Of Magnesia) 2,400 mg PRN QHS PRN PO CONSTIPATION; Start 10/07/16 at 17:30 Amlodipine Besylate (Norvasc) 10 mg DAILY PO Last administered on 10/27/16 08: 56; Start 10/08/16 at 09:00 Clonidine HCl (Catapres) 0.1 mg PRN Q6HRS PRN PO HYPERTENSION, SEE COMMENTS; Start 10/07/16 at 18:15 Lisinopril (Prinivil) 20 mg BID PO Last administered on 10/27/16 08:55; Start 10/07/16 at 21:00 Pneumococcal Polyvalent Vaccine (Pneumovax 23) 0.5 ml ONCE ONCE VAX IM ; Start 10/08/16 at 09:00; Stop 10/08/16 at 09:01; Status DC Olanzapine (ZyPREXA ZYDIS) 2.5 mg PRN Q4HRS PRN PO ANXIETY / AGITATION Last administered on 10/21/16 13:00; Start 10/07/16 at 23:15 Vitamin D (Vitamin D3) 2,000 unit DAILY PO Last administered on 10/27/16 08:54 ; Start 10/08/16 at 09:00 Potassium Chloride (Klor-Con) 20 meq DAILYWBKFT PO Last administered on 08:54; Start 10/08/16 at 08:00 Divalproex Sodium (Depakote Sprinkles) 125 mg DAILY PO Last administered on 08:54; Start 10/09/16 at 09:00 Divalproex Sodium (Depakote Sprinkles) 250 mg HS PO Last administered on 19:48; Start 10/08/16 at 21:00 Sertraline HCl (Zoloft) 25 mg DAILY PO Last administered on 10/14/16 08:38; Start 10/12/16 at 09:00; Stop 10/14/16 at 18:17; Status DC Trazodone HCl (Desyrel) 50 mg PRN QHS PRN PO INSOMNIA, MAY REPEAT X1 Last administered on 10/19/16 19:46; Start 10/11/16 at 10:30 Ketorolac Tromethamine (Toradol) 30 mg 1X ONCE IM Last administered on 11:37; Start 10/14/16 at 11:40; Stop 10/14/16 at 11:41; Status DC Naproxen (Naprosyn) 250 mg TIDAFTMEAL PRN PO PAIN Last administered on 08:54; Start 10/14/16 at 16:45 Sertraline HCl (Zoloft) 50 mg DAILY PO Last administered on 10/16/16 09:07; Start 10/15/16 at 09:00; Stop 10/16/16 at 13:44; Status DC Sertraline HCl (Zoloft) 50 mg DAILY PO Last administered on 10/27/16 08:54; Start 10/17/16 at 09:00 Fluticasone Propionate (Flonase) 2 spray PRN DAILY PRN NS ALLERGIES; Start at 07:45 Active Scripts Active Reported Trazodone Hcl 50 Mg Tablet 50 Mg PO PRN QHS PRN Zoloft (Sertraline Hcl) 50 Mg Tablet 50 Mg PO DAILY Klor-Con M20 (Potassium Chloride) 20 Meq Tab.er.prt 20 Meq PO DAILYWBKFT Zyprexa (Olanzapine) 2.5 Mg Tablet 2.5 Mg PO PRN Q4HRS PRN Naproxen 250 Mg Tablet 250 Mg PO TIDAFTMEAL Analgesic [place] (Methyl Salicylate/Menthol) 28 Gm Oint...g. 1 [place] TP PRN QID PRN Milk Of Magnesia (Magnesium Hydroxide) 2,400 Mg/10 Ml Oral.susp 2,400 Mg PO PRN QHS PRN Antacid-Simethicone Liquid (Mag Hydrox/Al Hydrox/Simeth) 360 Ml Oral.susp 15 Ml PO PRN AFTMEALHC PRN Flonase Allergy Relief (Fluticasone Propionate) 9.9 Ml [place].susp 2 Sprays NS DAILY PRN Depakote Sprinkle (Divalproex Sodium) 125 Mg Cap.sprink 250 Mg PO HS Depakote Sprinkle (Divalproex Sodium) 125 Mg Cap.sprink 125 Mg PO DAILY Vitamin D3 (Cholecalciferol (Vitamin D3)) 1,000 Unit Tablet 2,000 Unit PO DAILY Tylenol (Acetaminophen) 325 Mg Tablet 650 Mg PO PRN Q6HRS PRN Catapres (Clonidine Hcl) 0.1 Mg Tablet 1 Tab PO PRN Q6HRS PRN Amlodipine Besylate 10 Mg Tablet 10 Mg PO DAILY Lisinopril 20 Mg Tablet 1 Tab PO BID Diagnosis: Problems: (1) Anxiety disorder (2) Impulse control disorder (3) Major depressive disorder, recurrent episode (4) Dementia, vascular, with depression (5) Dementia, vascular, with delusions KOTA MUNOZ MD Oct 27, 2016 19:56
[2016-10-27] MEDS: traZODone 50 MG TABLET. PO PRN (20:14)
--- NOTE | 2016-10-27 20:20 | PDOC ---
Exam Isaiah Demential Exam: Isaiah Note: Please also refer to the separate dictated note~for this date of service dictated separately.~Patient seen individually. Discussed the patient with Nursing staff reviewed the chart.~Reviewed interim history and current functioning. Reviewed vital signs,~Labs/ Radiology~and current medications noted below. Continue current treatment with the changes noted in the dictated addendum note S/O: This is a late entry for 10/23/2016 covers the elements that are not covered in my initial note. The patient was staffed treatment team meeting with the entire team on morning of 10/23/2016, seen individually on evening of 10/23/2016. Sleeping about 6 hours. Appetite 90%. Anxious at times. Short- term memory is impaired but otherwise pleasant. He has many questions about his discharge plans as I met with him individually. He has been screened by [facility] and we will transfer there tomorrow. Review of Systems: Ambulation is impaired, in a wheelchair. No CV, , Pulmonary, Eye, ENT system symptoms on review. Reliability is poor. MSE: Oriented to himself. Insight and judgment, recent memory is impaired. Mood and affect is improved. Imp: Unchanged from initial note. Plan: Continue current psychotropics. This note covers the elements that are not covered in my initial note. Assessment: Vital Signs: Vital Signs Date Time Temp Pulse Resp B/P (MAP) Pulse Ox O2 Delivery O2 Flow Rate FiO2 10/27/16 20:13 85 132/78 10/27/16 15:28 98.3 18 96 Room Air I&O Intake and Output 10/27/16 07:00 Intake Total 1200 ml Balance 1200 ml Intake Oral 1200 ml # Bowel Movements 1 Current Medications: Meds: Current Medications Acetaminophen (Tylenol) 650 mg PRN Q6HRS PRN PO PAIN / TEMP Last administered on 10/15/16t 08:26; Start 10/07/16 at 17:30 Multi-Ingredient Ointment (Analgesic [place]) 1 paco PRN QID PRN TP MUSCLE PAIN; Start 10/07/16 at 17:30 Al Hydroxide/Mg Hydroxide (Mylanta Plus Xs) 15 ml PRN AFTMEALHC PRN PO DYSPEPSIA; Start 10/07/16 at 17:30 Magnesium Hydroxide (Milk Of Magnesia) 2,400 mg PRN QHS PRN PO CONSTIPATION; Start 10/07/16 at 17:30 Amlodipine Besylate (Norvasc) 10 mg DAILY PO Last administered on 10/27/16 08: 56; Start 10/08/16 at 09:00 Clonidine HCl (Catapres) 0.1 mg PRN Q6HRS PRN PO HYPERTENSION, SEE COMMENTS; Start 10/07/16 at 18:15 Lisinopril (Prinivil) 20 mg BID PO Last administered on 10/27/16 20:13; Start 10/07/16 at 21:00 Pneumococcal Polyvalent Vaccine (Pneumovax 23) 0.5 ml ONCE ONCE VAX IM ; Start 10/08/16 at 09:00; Stop 10/08/16 at 09:01; Status DC Olanzapine (ZyPREXA ZYDIS) 2.5 mg PRN Q4HRS PRN PO ANXIETY / AGITATION Last administered on 10/21/16 13:00; Start 10/07/16 at 23:15 Vitamin D (Vitamin D3) 2,000 unit DAILY PO Last administered on 10/27/16 08:54 ; Start 10/08/16 at 09:00 Potassium Chloride (Klor-Con) 20 meq DAILYWBKFT PO Last administered on 08:54; Start 10/08/16 at 08:00 Divalproex Sodium (Depakote Sprinkles) 125 mg DAILY PO Last administered on 08:54; Start 10/09/16 at 09:00 Divalproex Sodium (Depakote Sprinkles) 250 mg HS PO Last administered on 20:13; Start 10/08/16 at 21:00 Sertraline HCl (Zoloft) 25 mg DAILY PO Last administered on 10/14/16 08:38; Start 10/12/16 at 09:00; Stop 10/14/16 at 18:17; Status DC Trazodone HCl (Desyrel) 50 mg PRN QHS PRN PO INSOMNIA, MAY REPEAT X1 Last administered on 10/27/16 20:14; Start 10/11/16 at 10:30 Ketorolac Tromethamine (Toradol) 30 mg 1X ONCE IM Last administered on 11:37; Start 10/14/16 at 11:40; Stop 10/14/16 at 11:41; Status DC Naproxen (Naprosyn) 250 mg TIDAFTMEAL PRN PO PAIN Last administered on 08:54; Start 10/14/16 at 16:45 Sertraline HCl (Zoloft) 50 mg DAILY PO Last administered on 10/16/16 09:07; Start 10/15/16 at 09:00; Stop 10/16/16 at 13:44; Status DC Sertraline HCl (Zoloft) 50 mg DAILY PO Last administered on 10/27/16 08:54; Start 10/17/16 at 09:00 Fluticasone Propionate (Flonase) 2 spray PRN DAILY PRN NS ALLERGIES; Start at 07:45 Active Scripts Active Reported Trazodone Hcl 50 Mg Tablet 50 Mg PO PRN QHS PRN Zoloft (Sertraline Hcl) 50 Mg Tablet 50 Mg PO DAILY Klor-Con M20 (Potassium Chloride) 20 Meq Tab.er.prt 20 Meq PO DAILYWBKFT Zyprexa (Olanzapine) 2.5 Mg Tablet 2.5 Mg PO PRN Q4HRS PRN Naproxen 250 Mg Tablet 250 Mg PO TIDAFTMEAL Analgesic [place] (Methyl Salicylate/Menthol) 28 Gm Oint...g. 1 [place] TP PRN QID PRN Milk Of Magnesia (Magnesium Hydroxide) 2,400 Mg/10 Ml Oral.susp 2,400 Mg PO PRN QHS PRN Antacid-Simethicone Liquid (Mag Hydrox/Al Hydrox/Simeth) 360 Ml Oral.susp 15 Ml PO PRN AFTMEALHC PRN Flonase Allergy Relief (Fluticasone Propionate) 9.9 Ml [place].susp 2 Sprays NS DAILY PRN Depakote Sprinkle (Divalproex Sodium) 125 Mg Cap.sprink 250 Mg PO HS Depakote Sprinkle (Divalproex Sodium) 125 Mg Cap.sprink 125 Mg PO DAILY Vitamin D3 (Cholecalciferol (Vitamin D3)) 1,000 Unit Tablet 2,000 Unit PO DAILY Tylenol (Acetaminophen) 325 Mg Tablet 650 Mg PO PRN Q6HRS PRN Catapres (Clonidine Hcl) 0.1 Mg Tablet 1 Tab PO PRN Q6HRS PRN Amlodipine Besylate 10 Mg Tablet 10 Mg PO DAILY Lisinopril 20 Mg Tablet 1 Tab PO BID KOTA MUNOZ MD Oct 27, 2016 20:20
[2016-10-28 05:41] VITALS: BP 146/71
[2016-10-28] MEDS: LISINOPRIL 20 MG TABLET PO SCH (07:57)
[2016-10-28] MEDS: POTASSIUM CHLORIDE 20 MEQ TABLET.ER. PO SCH (07:57)
[2016-10-28 07:58] VITALS: BP 146/71
[2016-10-28] MEDS: SERTRALINE 50 MG TABLET. PO SCH (07:58)
[2016-10-28] MEDS: amLODIPine BESYLATE 10 MG TABLET PO SCH (07:58)
[2016-10-28] MEDS: DIVALPROEX 125 MG CAP.SPRINK PO SCH (07:59)
[2016-10-28] MEDS: CHOLECALCIFEROL (VITAMIN D3) 1,000 UNIT TABLET PO SCH (07:59)
--- NOTE | 2016-10-28 21:01 | PDOC ---
Exam Isaiah Demential Exam: Isaiah Note: Please also refer to the separate dictated note~for this date of service dictated separately.~Patient seen individually. Discussed the patient with Nursing staff reviewed the chart.~Reviewed interim history and current functioning. Reviewed vital signs,~Labs/ Radiology~and current medications noted below. Continue current treatment with the changes noted in the dictated addendum note S/O: This is a late entry for October 24 covers elements not covered in my initial note. I met with patient in the evening of October 24. Per nursing report, the patient is doing reasonably well. He does have short-term memory deficits, but otherwise compliant. Review of Systems: Ambulation impaired. No CV, , Pulmonary, Eye system symptoms on review. Reliability poor. MSE: Oriented to himself. Insight, judgment, and recent memory are impaired. Language function is intact. Mood and affect lability is improved. Labs: Reviewed. Imp: Unchanged from initial note. Plan: Continue current psychotropics. [facility]. Assessment: Vital Signs: Vital Signs Date Time Temp Pulse Resp B/P (MAP) Pulse Ox O2 Delivery O2 Flow Rate FiO2 10/28/16 07:58 55 146/71 10/28/16 05:41 98.1 16 98 10/27/16 15:28 Room Air I&O Intake and Output 10/28/16 07:00 Intake Total 1320 ml Balance 1320 ml Intake Oral 1320 ml Current Medications: Meds: Current Medications Acetaminophen (Tylenol) 650 mg PRN Q6HRS PRN PO PAIN / TEMP Last administered on 10/15/16t 08:26; Start 10/07/16 at 17:30; Stop 10/28/16 at 11:53; Status DC Multi-Ingredient Ointment (Analgesic [place]) 1 paco PRN QID PRN TP MUSCLE PAIN; Start 10/07/16 at 17:30; Stop 10/28/16 at 11:53; Status DC Al Hydroxide/Mg Hydroxide (Mylanta Plus Xs) 15 ml PRN AFTMEALHC PRN PO DYSPEPSIA; Start 10/07/16 at 17:30; Stop 10/28/16 at 11:53; Status DC Magnesium Hydroxide (Milk Of Magnesia) 2,400 mg PRN QHS PRN PO CONSTIPATION; Start 10/07/16 at 17:30; Stop 10/28/16 at 11:53; Status DC Amlodipine Besylate (Norvasc) 10 mg DAILY PO Last administered on 10/28/16 07: 58; Start 10/08/16 at 09:00; Stop 10/28/16 at 11:53; Status DC Clonidine HCl (Catapres) 0.1 mg PRN Q6HRS PRN PO HYPERTENSION, SEE COMMENTS; Start 10/07/16 at 18:15; Stop 10/28/16 at 11:53; Status DC Lisinopril (Prinivil) 20 mg BID PO Last administered on 10/28/16 07:57; Start 10/07/16 at 21:00; Stop 10/28/16 at 11:53; Status DC Pneumococcal Polyvalent Vaccine (Pneumovax 23) 0.5 ml ONCE ONCE VAX IM ; Start 10/08/16 at 09:00; Stop 10/08/16 at 09:01; Status DC Olanzapine (ZyPREXA ZYDIS) 2.5 mg PRN Q4HRS PRN PO ANXIETY / AGITATION Last administered on 10/21/16 13:00; Start 10/07/16 at 23:15; Stop 10/28/16 at 11:53 ; Status DC Vitamin D (Vitamin D3) 2,000 unit DAILY PO Last administered on 10/28/16 07:59 ; Start 10/08/16 at 09:00; Stop 10/28/16 at 11:53; Status DC Potassium Chloride (Klor-Con) 20 meq DAILYWBKFT PO Last administered on 07:57; Start 10/08/16 at 08:00; Stop 10/28/16 at 11:53; Status DC Divalproex Sodium (Depakote Sprinkles) 125 mg DAILY PO Last administered on 07:59; Start 10/09/16 at 09:00; Stop 10/28/16 at 11:53; Status DC Divalproex Sodium (Depakote Sprinkles) 250 mg HS PO Last administered on 20:13; Start 10/08/16 at 21:00; Stop 10/28/16 at 11:53; Status DC Sertraline HCl (Zoloft) 25 mg DAILY PO Last administered on 10/14/16 08:38; Start 10/12/16 at 09:00; Stop 10/14/16 at 18:17; Status DC Trazodone HCl (Desyrel) 50 mg PRN QHS PRN PO INSOMNIA, MAY REPEAT X1 Last administered on 10/27/16 20:14; Start 10/11/16 at 10:30; Stop 10/28/16 at 11:53 ; Status DC Ketorolac Tromethamine (Toradol) 30 mg 1X ONCE IM Last administered on 11:37; Start 10/14/16 at 11:40; Stop 10/14/16 at 11:41; Status DC Naproxen (Naprosyn) 250 mg TIDAFTMEAL PRN PO PAIN Last administered on 08:54; Start 10/14/16 at 16:45; Stop 10/28/16 at 11:53; Status DC Sertraline HCl (Zoloft) 50 mg DAILY PO Last administered on 10/16/16 09:07; Start 10/15/16 at 09:00; Stop 10/16/16 at 13:44; Status DC Sertraline HCl (Zoloft) 50 mg DAILY PO Last administered on 10/28/16 07:58; Start 10/17/16 at 09:00; Stop 10/28/16 at 11:53; Status DC Fluticasone Propionate (Flonase) 2 spray PRN DAILY PRN NS ALLERGIES; Start at 07:45; Stop 10/28/16 at 11:53; Status DC Active Scripts Active Reported Trazodone Hcl 50 Mg Tablet 50 Mg PO PRN QHS PRN Zoloft (Sertraline Hcl) 50 Mg Tablet 50 Mg PO DAILY Klor-Con M20 (Potassium Chloride) 20 Meq Tab.er.prt 20 Meq PO DAILYWBKFT Zyprexa (Olanzapine) 2.5 Mg Tablet 2.5 Mg PO PRN Q4HRS PRN Naproxen 250 Mg Tablet 250 Mg PO TIDAFTMEAL Analgesic [place] (Methyl Salicylate/Menthol) 28 Gm Oint...g. 1 [place] TP PRN QID PRN Milk Of Magnesia (Magnesium Hydroxide) 2,400 Mg/10 Ml Oral.susp 2,400 Mg PO PRN QHS PRN Antacid-Simethicone Liquid (Mag Hydrox/Al Hydrox/Simeth) 360 Ml Oral.susp 15 Ml PO PRN AFTMEALHC PRN Flonase Allergy Relief (Fluticasone Propionate) 9.9 Ml [place].susp 2 Sprays NS DAILY PRN Depakote Sprinkle (Divalproex Sodium) 125 Mg Cap.sprink 250 Mg PO HS Depakote Sprinkle (Divalproex Sodium) 125 Mg Cap.sprink 125 Mg PO DAILY Vitamin D3 (Cholecalciferol (Vitamin D3)) 1,000 Unit Tablet 2,000 Unit PO DAILY Tylenol (Acetaminophen) 325 Mg Tablet 650 Mg PO PRN Q6HRS PRN Catapres (Clonidine Hcl) 0.1 Mg Tablet 1 Tab PO PRN Q6HRS PRN Amlodipine Besylate 10 Mg Tablet 10 Mg PO DAILY Lisinopril 20 Mg Tablet 1 Tab PO BID KOTA MUNOZ MD Oct 28, 2016 21:01
--- NOTE | 2016-10-29 21:07 | PDOC ---
Exam Isaiah Demential Exam: Isaiah Note: Please also refer to the separate dictated note~for this date of service dictated separately.~Patient seen individually. Discussed the patient with Nursing staff reviewed the chart.~Reviewed interim history and current functioning. Reviewed vital signs,~Labs/ Radiology~and current medications noted below. Continue current treatment with the changes noted in the dictated addendum note S/O: This is a late entry for date of service 10/26/2016. I met with the patient individually on evening of October 26, discussed with nursing staff, and reviewed the chart. Per nursing report, the patient was somewhat delusional last evening talking about wanting to go for a job interview. He has been pleasant and cooperative today. Review of Systems: No CV, , Pulmonary, Eye, ENT system symptoms on review. Reliability poor. MSE: Oriented to himself, situation. Speech is coherent, pleasant, smiling. Abstraction is fair. Computation is impaired. Language function is intact. Attention span is short. Mood and affect appear improved. No suicidal or homicidal ideation. Labs: Reviewed. Imp: Unchanged from initial note. Plan: Continue current psychotropics. Assessment: Vital Signs: Vital Signs Date Time Temp Pulse Resp B/P (MAP) Pulse Ox O2 Delivery O2 Flow Rate FiO2 10/28/16 07:58 55 146/71 10/28/16 05:41 98.1 16 98 10/27/16 15:28 Room Air I&O Intake and Output 10/29/16 07:00 Intake Total 480 ml Balance 480 ml Intake Oral 480 ml Current Medications: Meds: Current Medications Acetaminophen (Tylenol) 650 mg PRN Q6HRS PRN PO PAIN / TEMP Last administered on 10/15/16t 08:26; Start 10/07/16 at 17:30; Stop 10/28/16 at 11:53; Status DC Multi-Ingredient Ointment (Analgesic [place]) 1 paco PRN QID PRN TP MUSCLE PAIN; Start 10/07/16 at 17:30; Stop 10/28/16 at 11:53; Status DC Al Hydroxide/Mg Hydroxide (Mylanta Plus Xs) 15 ml PRN AFTMEALHC PRN PO DYSPEPSIA; Start 10/07/16 at 17:30; Stop 10/28/16 at 11:53; Status DC Magnesium Hydroxide (Milk Of Magnesia) 2,400 mg PRN QHS PRN PO CONSTIPATION; Start 10/07/16 at 17:30; Stop 10/28/16 at 11:53; Status DC Amlodipine Besylate (Norvasc) 10 mg DAILY PO Last administered on 10/28/16 07: 58; Start 10/08/16 at 09:00; Stop 10/28/16 at 11:53; Status DC Clonidine HCl (Catapres) 0.1 mg PRN Q6HRS PRN PO HYPERTENSION, SEE COMMENTS; Start 10/07/16 at 18:15; Stop 10/28/16 at 11:53; Status DC Lisinopril (Prinivil) 20 mg BID PO Last administered on 10/28/16 07:57; Start 10/07/16 at 21:00; Stop 10/28/16 at 11:53; Status DC Pneumococcal Polyvalent Vaccine (Pneumovax 23) 0.5 ml ONCE ONCE VAX IM ; Start 10/08/16 at 09:00; Stop 10/08/16 at 09:01; Status DC Olanzapine (ZyPREXA ZYDIS) 2.5 mg PRN Q4HRS PRN PO ANXIETY / AGITATION Last administered on 10/21/16 13:00; Start 10/07/16 at 23:15; Stop 10/28/16 at 11:53 ; Status DC Vitamin D (Vitamin D3) 2,000 unit DAILY PO Last administered on 10/28/16 07:59 ; Start 10/08/16 at 09:00; Stop 10/28/16 at 11:53; Status DC Potassium Chloride (Klor-Con) 20 meq DAILYWBKFT PO Last administered on 07:57; Start 10/08/16 at 08:00; Stop 10/28/16 at 11:53; Status DC Divalproex Sodium (Depakote Sprinkles) 125 mg DAILY PO Last administered on 07:59; Start 10/09/16 at 09:00; Stop 10/28/16 at 11:53; Status DC Divalproex Sodium (Depakote Sprinkles) 250 mg HS PO Last administered on 20:13; Start 10/08/16 at 21:00; Stop 10/28/16 at 11:53; Status DC Sertraline HCl (Zoloft) 25 mg DAILY PO Last administered on 10/14/16 08:38; Start 10/12/16 at 09:00; Stop 10/14/16 at 18:17; Status DC Trazodone HCl (Desyrel) 50 mg PRN QHS PRN PO INSOMNIA, MAY REPEAT X1 Last administered on 10/27/16 20:14; Start 10/11/16 at 10:30; Stop 10/28/16 at 11:53 ; Status DC Ketorolac Tromethamine (Toradol) 30 mg 1X ONCE IM Last administered on 11:37; Start 10/14/16 at 11:40; Stop 10/14/16 at 11:41; Status DC Naproxen (Naprosyn) 250 mg TIDAFTMEAL PRN PO PAIN Last administered on 08:54; Start 10/14/16 at 16:45; Stop 10/28/16 at 11:53; Status DC Sertraline HCl (Zoloft) 50 mg DAILY PO Last administered on 10/16/16 09:07; Start 10/15/16 at 09:00; Stop 10/16/16 at 13:44; Status DC Sertraline HCl (Zoloft) 50 mg DAILY PO Last administered on 10/28/16 07:58; Start 10/17/16 at 09:00; Stop 10/28/16 at 11:53; Status DC Fluticasone Propionate (Flonase) 2 spray PRN DAILY PRN NS ALLERGIES; Start at 07:45; Stop 10/28/16 at 11:53; Status DC Active Scripts Active Reported Trazodone Hcl 50 Mg Tablet 50 Mg PO PRN QHS PRN Zoloft (Sertraline Hcl) 50 Mg Tablet 50 Mg PO DAILY Klor-Con M20 (Potassium Chloride) 20 Meq Tab.er.prt 20 Meq PO DAILYWBKFT Zyprexa (Olanzapine) 2.5 Mg Tablet 2.5 Mg PO PRN Q4HRS PRN Naproxen 250 Mg Tablet 250 Mg PO TIDAFTMEAL Analgesic [place] (Methyl Salicylate/Menthol) 28 Gm Oint...g. 1 [place] TP PRN QID PRN Milk Of Magnesia (Magnesium Hydroxide) 2,400 Mg/10 Ml Oral.susp 2,400 Mg PO PRN QHS PRN Antacid-Simethicone Liquid (Mag Hydrox/Al Hydrox/Simeth) 360 Ml Oral.susp 15 Ml PO PRN AFTMEALHC PRN Flonase Allergy Relief (Fluticasone Propionate) 9.9 Ml [place].susp 2 Sprays NS DAILY PRN Depakote Sprinkle (Divalproex Sodium) 125 Mg Cap.sprink 250 Mg PO HS Depakote Sprinkle (Divalproex Sodium) 125 Mg Cap.sprink 125 Mg PO DAILY Vitamin D3 (Cholecalciferol (Vitamin D3)) 1,000 Unit Tablet 2,000 Unit PO DAILY Tylenol (Acetaminophen) 325 Mg Tablet 650 Mg PO PRN Q6HRS PRN Catapres (Clonidine Hcl) 0.1 Mg Tablet 1 Tab PO PRN Q6HRS PRN Amlodipine Besylate 10 Mg Tablet 10 Mg PO DAILY Lisinopril 20 Mg Tablet 1 Tab PO BID KOTA MUNOZ MD Oct 29, 2016 21:07
--- NOTE | 2016-10-30 20:25 | PDOC ---
Exam Isaiah Demential Exam: Isaiah Note: Please also refer to the separate dictated note~for this date of service dictated separately.~Patient seen individually. Discussed the patient with Nursing staff reviewed the chart.~Reviewed interim history and current functioning. Reviewed vital signs,~Labs/ Radiology~and current medications noted below. Continue current treatment with the changes noted in the dictated addendum note S/O: This is a late entry for date of service October 27 covers elements not covered in my initial note of October 27. Per nursing report, the patient remains somewhat confused, forgetful for very short-term events, but otherwise cooperative. Review of Systems: No CV, , Pulmonary, Eye system symptoms on review. MSE: Oriented to himself. Insight, judgment, and recent memory are impaired. Language function intact. Attention span short. Mood and affect improved. No suicidal or homicidal ideation. Labs: Reviewed. Impression: Unchanged from initial note. Plan: Continue current psychotropics. Transition to a lower level of care on October 28. Assessment: Vital Signs: Vital Signs Date Time Temp Pulse Resp B/P (MAP) Pulse Ox O2 Delivery O2 Flow Rate FiO2 10/28/16 07:58 55 146/71 10/28/16 05:41 98.1 16 98 10/27/16 15:28 Room Air Current Medications: Meds: Current Medications Acetaminophen (Tylenol) 650 mg PRN Q6HRS PRN PO PAIN / TEMP Last administered on 10/15/16 08:26; Start 10/07/16 at 17:30; Stop 10/28/16 at 11:53; Status DC Multi-Ingredient Ointment (Analgesic Bishop) 1 paco PRN QID PRN TP MUSCLE PAIN; Start 10/07/16 at 17:30; Stop 10/28/16 at 11:53; Status DC Al Hydroxide/Mg Hydroxide (Mylanta Plus Xs) 15 ml PRN AFTMEALHC PRN PO DYSPEPSIA; Start 10/07/16 at 17:30; Stop 10/28/16 at 11:53; Status DC Magnesium Hydroxide (Milk Of Magnesia) 2,400 mg PRN QHS PRN PO CONSTIPATION; Start 10/07/16 at 17:30; Stop 10/28/16 at 11:53; Status DC Amlodipine Besylate (Norvasc) 10 mg DAILY PO Last administered on 10/28/16 07: 58; Start 10/08/16 at 09:00; Stop 10/28/16 at 11:53; Status DC Clonidine HCl (Catapres) 0.1 mg PRN Q6HRS PRN PO HYPERTENSION, SEE COMMENTS; Start 10/07/16 at 18:15; Stop 10/28/16 at 11:53; Status DC Lisinopril (Prinivil) 20 mg BID PO Last administered on 10/28/16 07:57; Start 10/07/16 at 21:00; Stop 10/28/16 at 11:53; Status DC Pneumococcal Polyvalent Vaccine (Pneumovax 23) 0.5 ml ONCE ONCE VAX IM ; Start 10/08/16 at 09:00; Stop 10/08/16 at 09:01; Status DC Olanzapine (ZyPREXA ZYDIS) 2.5 mg PRN Q4HRS PRN PO ANXIETY / AGITATION Last administered on 10/21/16 13:00; Start 10/07/16 at 23:15; Stop 10/28/16 at 11:53 ; Status DC Vitamin D (Vitamin D3) 2,000 unit DAILY PO Last administered on 10/28/16 07:59 ; Start 10/08/16 at 09:00; Stop 10/28/16 at 11:53; Status DC Potassium Chloride (Klor-Con) 20 meq DAILYWBKFT PO Last administered on 07:57; Start 10/08/16 at 08:00; Stop 10/28/16 at 11:53; Status DC Divalproex Sodium (Depakote Sprinkles) 125 mg DAILY PO Last administered on 07:59; Start 10/09/16 at 09:00; Stop 10/28/16 at 11:53; Status DC Divalproex Sodium (Depakote Sprinkles) 250 mg HS PO Last administered on 20:13; Start 10/08/16 at 21:00; Stop 10/28/16 at 11:53; Status DC Sertraline HCl (Zoloft) 25 mg DAILY PO Last administered on 10/14/16 08:38; Start 10/12/16 at 09:00; Stop 10/14/16 at 18:17; Status DC Trazodone HCl (Desyrel) 50 mg PRN QHS PRN PO INSOMNIA, MAY REPEAT X1 Last administered on 10/27/16 20:14; Start 10/11/16 at 10:30; Stop 10/28/16 at 11:53 ; Status DC Ketorolac Tromethamine (Toradol) 30 mg 1X ONCE IM Last administered on 11:37; Start 10/14/16 at 11:40; Stop 10/14/16 at 11:41; Status DC Naproxen (Naprosyn) 250 mg TIDAFTMEAL PRN PO PAIN Last administered on 08:54; Start 10/14/16 at 16:45; Stop 10/28/16 at 11:53; Status DC Sertraline HCl (Zoloft) 50 mg DAILY PO Last administered on 10/16/16 09:07; Start 10/15/16 at 09:00; Stop 10/16/16 at 13:44; Status DC Sertraline HCl (Zoloft) 50 mg DAILY PO Last administered on 10/28/16 07:58; Start 10/17/16 at 09:00; Stop 10/28/16 at 11:53; Status DC Fluticasone Propionate (Flonase) 2 spray PRN DAILY PRN NS ALLERGIES; Start at 07:45; Stop 10/28/16 at 11:53; Status DC Active Scripts Active Reported Trazodone Hcl 50 Mg Tablet 50 Mg PO PRN QHS PRN Zoloft (Sertraline Hcl) 50 Mg Tablet 50 Mg PO DAILY Klor-Con M20 (Potassium Chloride) 20 Meq Tab.er.prt 20 Meq PO DAILYWBKFT Zyprexa (Olanzapine) 2.5 Mg Tablet 2.5 Mg PO PRN Q4HRS PRN Naproxen 250 Mg Tablet 250 Mg PO TIDAFTMEAL Analgesic Bishop (Methyl Salicylate/Menthol) 28 Gm Oint...g. 1 Paco TP PRN QID PRN Milk Of Magnesia (Magnesium Hydroxide) 2,400 Mg/10 Ml Oral.susp 2,400 Mg PO PRN QHS PRN Antacid-Simethicone Liquid (Mag Hydrox/Al Hydrox/Simeth) 360 Ml Oral.susp 15 Ml PO PRN AFTMEALHC PRN Flonase Allergy Relief (Fluticasone Propionate) 9.9 Ml [place].susp 2 Sprays NS DAILY PRN Depakote Sprinkle (Divalproex Sodium) 125 Mg Cap.sprink 250 Mg PO HS Depakote Sprinkle (Divalproex Sodium) 125 Mg Cap.sprink 125 Mg PO DAILY Vitamin D3 (Cholecalciferol (Vitamin D3)) 1,000 Unit Tablet 2,000 Unit PO DAILY Tylenol (Acetaminophen) 325 Mg Tablet 650 Mg PO PRN Q6HRS PRN Catapres (Clonidine Hcl) 0.1 Mg Tablet 1 Tab PO PRN Q6HRS PRN Amlodipine Besylate 10 Mg Tablet 10 Mg PO DAILY Lisinopril 20 Mg Tablet 1 Tab PO BID KOTA MUNOZ MD Oct 30, 2016 20:25
--- NOTE | 2016-11-02 20:11 | PDOC3 ---
Discharge Summary Brief Hospital Course Allergies Allergies Coded Allergies Type Severity Reaction Last Updated Verified No Known Drug Allergies 10/07/16 No Vital Signs Vital Signs Date Time Temp Pulse Resp B/P (MAP) Pulse Ox O2 Delivery O2 Flow Rate FiO2 10/28/16 07:58 55 146/71 10/28/16 05:41 98.1 16 98 10/27/16 15:28 Room Air Brief Hospital Course Mr. Vela is a 85 old [sex] who presented with [ ] This is a late entry for date of service October 28 covers the elements not covered in my initial note of October 28. Reason for Admission: Please refer to the admission history for details. Briefly, the patient is an 85-year-old male referred from [facility] where he presented from home on account of worsening symptoms of depression, memory deficits for short-term events, and after the patient threatened to throw himself out of a moving car, was combative, not taking his medications at home. He had a fall in the emergency room resulting in laceration of the right brow. Significant Findings/Clinical Course Following Admission: The patient was seen daily individually by myself from a psychiatric standpoint, medical follow up with Dr. Arrington/Dr. Antoine. Initially, the patient appeared confused with short- term memory, deficits, depressed. Adjustments were made in his psychotropics and he seemed to respond to a combination of Zoloft 50 mg a day, Depakote Sprinkles 125 mg a.m. and 250 mg HS, Trazodone p.r.n. Valproic acid level was 39, subtherapeutic but clinically adequate. Gradually, the patient's mood improved. He was less irritable, much more coherent. No suicidal or homicidal ideation prior to discharge. Review of Systems: No CV, , Pulmonary, Eye, ENT system symptoms on review. MSE: Oriented to himself, situation. Speech coherent. Abstraction fair. Computation impaired. Language function intact. Intellect average. Insight improved. Mood and affect improved. Labs: Reviewed. Condition at Discharge: Improved. Final Diagnoses: Major depressive disorder, in partial remission; major neurocognitive disorder, Alzheimer's vascular with depression, behavior disturbances; anxiety disorder, unspecified; impulse control disorder, unspecified. Rest diagnoses unchanged from admission. Discharge Medications: Please refer to the EMRAD. Outpatient psychiatric and medical followup at the half-way. Time for discharge day management greater than 30 minutes. Discharge Information Dischare Medications Current Medications Acetaminophen (Tylenol) 650 mg PRN Q6HRS PRN PO PAIN / TEMP Last administered on 10/15/16 08:26; Start 10/07/16 at 17:30; Stop 10/28/16 at 11:53; Status DC Multi-Ingredient Ointment (Analgesic [place]) 1 paco PRN QID PRN TP MUSCLE PAIN; Start 10/07/16 at 17:30; Stop 10/28/16 at 11:53; Status DC Al Hydroxide/Mg Hydroxide (Mylanta Plus Xs) 15 ml PRN AFTMEALHC PRN PO DYSPEPSIA; Start 10/07/16 at 17:30; Stop 10/28/16 at 11:53; Status DC Magnesium Hydroxide (Milk Of Magnesia) 2,400 mg PRN QHS PRN PO CONSTIPATION; Start 10/07/16 at 17:30; Stop 10/28/16 at 11:53; Status DC Amlodipine Besylate (Norvasc) 10 mg DAILY PO Last administered on 10/28/16 07: 58; Start 10/08/16 at 09:00; Stop 10/28/16 at 11:53; Status DC Clonidine HCl (Catapres) 0.1 mg PRN Q6HRS PRN PO HYPERTENSION, SEE COMMENTS; Start 10/07/16 at 18:15; Stop 10/28/16 at 11:53; Status DC Lisinopril (Prinivil) 20 mg BID PO Last administered on 10/28/16 07:57; Start 10/07/16 at 21:00; Stop 10/28/16 at 11:53; Status DC Pneumococcal Polyvalent Vaccine (Pneumovax 23) 0.5 ml ONCE ONCE VAX IM ; Start 10/08/16 at 09:00; Stop 10/08/16 at 09:01; Status DC Olanzapine (ZyPREXA ZYDIS) 2.5 mg PRN Q4HRS PRN PO ANXIETY / AGITATION Last administered on 10/21/16 13:00; Start 10/07/16 at 23:15; Stop 10/28/16 at 11:53 ; Status DC Vitamin D (Vitamin D3) 2,000 unit DAILY PO Last administered on 10/28/16 07:59 ; Start 10/08/16 at 09:00; Stop 10/28/16 at 11:53; Status DC Potassium Chloride (Klor-Con) 20 meq DAILYWBKFT PO Last administered on 07:57; Start 10/08/16 at 08:00; Stop 10/28/16 at 11:53; Status DC Divalproex Sodium (Depakote Sprinkles) 125 mg DAILY PO Last administered on 07:59; Start 10/09/16 at 09:00; Stop 10/28/16 at 11:53; Status DC Divalproex Sodium (Depakote Sprinkles) 250 mg HS PO Last administered on 20:13; Start 10/08/16 at 21:00; Stop 10/28/16 at 11:53; Status DC Sertraline HCl (Zoloft) 25 mg DAILY PO Last administered on 10/14/16 08:38; Start 10/12/16 at 09:00; Stop 10/14/16 at 18:17; Status DC Trazodone HCl (Desyrel) 50 mg PRN QHS PRN PO INSOMNIA, MAY REPEAT X1 Last administered on 10/27/16 20:14; Start 10/11/16 at 10:30; Stop 10/28/16 at 11:53 ; Status DC Ketorolac Tromethamine (Toradol) 30 mg 1X ONCE IM Last administered on 11:37; Start 10/14/16 at 11:40; Stop 10/14/16 at 11:41; Status DC Naproxen (Naprosyn) 250 mg TIDAFTMEAL PRN PO PAIN Last administered on 08:54; Start 10/14/16 at 16:45; Stop 10/28/16 at 11:53; Status DC Sertraline HCl (Zoloft) 50 mg DAILY PO Last administered on 10/16/16 09:07; Start 10/15/16 at 09:00; Stop 10/16/16 at 13:44; Status DC Sertraline HCl (Zoloft) 50 mg DAILY PO Last administered on 10/28/16 07:58; Start 10/17/16 at 09:00; Stop 10/28/16 at 11:53; Status DC Fluticasone Propionate (Flonase) 2 spray PRN DAILY PRN NS ALLERGIES; Start at 07:45; Stop 10/28/16 at 11:53; Status DC Active Scripts Active Reported Trazodone Hcl 50 Mg Tablet 50 Mg PO PRN QHS PRN Zoloft (Sertraline Hcl) 50 Mg Tablet 50 Mg PO DAILY Klor-Con M20 (Potassium Chloride) 20 Meq Tab.er.prt 20 Meq PO DAILYWBKFT Zyprexa (Olanzapine) 2.5 Mg Tablet 2.5 Mg PO PRN Q4HRS PRN Naproxen 250 Mg Tablet 250 Mg PO TIDAFTMEAL Analgesic [place] (Methyl Salicylate/Menthol) 28 Gm Oint...g. 1 Paco TP PRN QID PRN Milk Of Magnesia (Magnesium Hydroxide) 2,400 Mg/10 Ml Oral.susp 2,400 Mg PO PRN QHS PRN Antacid-Simethicone Liquid (Mag Hydrox/Al Hydrox/Simeth) 360 Ml Oral.susp 15 Ml PO PRN AFTMEALHC PRN Flonase Allergy Relief (Fluticasone Propionate) 9.9 Ml [place].susp 2 Sprays NS DAILY PRN Depakote Sprinkle (Divalproex Sodium) 125 Mg Cap.sprink 250 Mg PO HS Depakote Sprinkle (Divalproex Sodium) 125 Mg Cap.sprink 125 Mg PO DAILY Vitamin D3 (Cholecalciferol (Vitamin D3)) 1,000 Unit Tablet 2,000 Unit PO DAILY Tylenol (Acetaminophen) 325 Mg Tablet 650 Mg PO PRN Q6HRS PRN Catapres (Clonidine Hcl) 0.1 Mg Tablet 1 Tab PO PRN Q6HRS PRN Amlodipine Besylate 10 Mg Tablet 10 Mg PO DAILY Lisinopril 20 Mg Tablet 1 Tab PO BID KOTA MUNOZ MD Nov 02, 2016 20:11
--- NOTE | 2016-11-17 15:32 | HP ---
ADMIT DATE: 10/08/2016 REASON FOR ADMISSION TO THE [facility]: This is an 85-year-old gentleman whose amily has reported worsening depression, threatened to throw himself out of the car, was combative and uncooperative in the ER at [place] and fell on his knee and actually fell and hit his head and had a laceration on his brow. He was living at home. Family does not feel like he could be returned to his home. The patient is requiring 1:1. PAST MEDICAL HISTORY: Hypertension, confusion, probable dementia, and depression. HOME MEDICATIONS: Reviewed and are available on the MAR. SOCIAL HISTORY: The patient has been and 3 times. He states he does not belong here. Smoking history: None. He is a . He does have a son as his power of defense attorney. He also in high school and had difficulty maintaining jobs because he could not adjust to any type of direction. FAMILY HISTORY: Father had dementia, paternal grandmother had psychosis, and a brother who resided in a psych facility after being in the army until his . REVIEW OF SYSTEMS: Negative. The patient states there is nothing wrong. PHYSICAL EXAMINATION: VITAL SIGNS: Blood pressure 142/75, temperature 98.8, pulse 61, respirations 18, pulse ox 98% on room air, height 72 inches, weight 159.25 pounds. GENERAL: Tall, thin, elderly male, in no acute distress. He agreed to minimal exam, otherwise wanted to left alone. He was interviewed in his room. HEENT: His eyes are clear. He has a laceration over his brow. His nose is patent. His tongue was moist. NECK: Supple. LUNGS: Clear. CARDIOVASCULAR: Regular rhythm and rate. ABDOMEN: Soft, nontender. EXTREMITIES: Does have a slightly swollen right knee. Without edema. NEUROLOGIC: Cranial nerves that he allowed me were intact. His hearing is normal. His gait is little unsteady. LABORATORY DATA: Also reviewed. Low vitamin D and low iron. ASSESSMENT: 1. Neurocognitive impairment. 2. Status post fall with right knee effusion and right brow laceration. 3. Iron deficiency. 4. Vitamin D deficiency. 5. Hypertension. 6. Hypokalemia. PLAN: Treat all of his medical conditions and follow along with Dr. Phillips. EVENS GALLO DO DR: Patrick JOB#: [id number] / [id number]
== END 2016-10-28 11:52 | DRG 884 ==
LOC: GEROPSY 16:40
PROVIDERS: ADMIT Psychiatry & Neurology Psychiatry; ATTEND Psychiatry & Neurology Psychiatry
DX: F01.50 Vascular dementia, unspecified severity, without behavioral disturbance, psychotic disturbance, mood disturbance, and anxiety (principal); F33.9 Major depressive disorder, recurrent, unspecified; F22 Delusional disorders; D72.829 Elevated white blood cell count, unspecified; F41.9 Anxiety disorder, unspecified; F63.9 Impulse disorder, unspecified; M25.461 Effusion, right knee; R79.82 Elevated C-reactive protein (CRP); G30.9 Alzheimer's disease, unspecified; I10 Essential (primary) hypertension; E61.1 Iron deficiency; E55.9 Vitamin D deficiency, unspecified; F02.80 Dementia in other diseases classified elsewhere, unspecified severity, without behavioral disturbance, psychotic disturbance, mood disturbance, and anxiety; Z79.899 Other long term (current) drug therapy; W19.XXXA Unspecified fall, initial encounter; Z81.8 Family history of other mental and behavioral disorders
CPT/HCPCS: 36415; 73560; 73700; 80053; 80061; 80164; 81001; 82306; 82607; 83036; 83540; 83550; 83735; 84550; 85027; 85651; 86140; 86592; 86593; J1885